=== PATIENT | female | born 1940 | race Caucasian/White ===

== ENCOUNTER 2018-11-05 10:48 | Emergency (ER) | payer OTHER ==
[2018-11-05 11:00] VITALS: TEMP 97.7; BMI 33.0
--- NOTE | 2018-11-05 12:19 | PDOC ---
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 Patient was in bed when the son-in-law heard a Yon and went to her room. He stated within seconds she started to have generalized tremors of the upper extremities without vomiting which lasted approximately 30 seconds. He stated he called 911 immediately and patient at that time was in a deep "snore. " By the time EMS arrived patient was alert but groggy. Patient is currently asymptomatic and denies change in medications, recent illness, fever, chills chest pain difficulty breathing or urinary complaints. Timing/Duration: resolved prior to arrival Severity: moderate Associated Symptoms: reports: seizure Past History - Travel Traveled outside of the country in the last 30 days: No Close contact w/someone who was outside of country & ill: No - Past Medical History Allergies/Adverse Reactions: Allergies Allergy/AdvReac Type Severity Reaction Status Date / Time No Known Allergies Allergy Verified 11/05/18 10:59 Home Medications: Ambulatory Orders Aspirin 81 mg PO DAILY 11/05/18 Calcium Carbonate [Calcium] 500 mg PO DAILY 11/05/18 Cholecalciferol (Vitamin D3) [Vitamin D3 -] 5,000 unit PO DAILY 11/05/18 Hydrocodone/Acetaminophen [Hydrocodon-Acetaminoph 7.5-325] 1 each PO QID PRN Levothyroxine [Synthroid -] 125 mcg PO DAILY 11/05/18 Metoprolol Succinate [Toprol Xl] 25 mg PO DAILY 11/05/18 Phenobarbital 32.4 mg PO DAILY 11/05/18 Phenobarbital 64.8 mg PO HS 11/05/18 Phenytoin Na Extended [Dilantin -] 100 mg PO DAILY 11/05/18 Phenytoin Na Extended [Dilantin -] 200 mg PO HS 11/05/18 COPD: No HTN: Yes Seizures: Yes Thyroid Disease: Yes - Suicide/Smoking/Psychosocial Hx Smoking History: Unknown if ever smoked Patient Lives Alone: No Lives with/in: daughter Review of Systems - Review of Systems Able to Perform ROS?: No Is the patient limited Maltese proficient: No Constitutional: No: Symptoms Reported HEENTM: No: Symptoms Reported Respiratory: No: Symptoms reported Cardiac (ROS): No: Symptoms Reported ABD/GI: No: Symptoms Reported : No: Symptoms Reported Musculoskeletal: No: Symptoms Reported Integumentary: No: Symptoms Reported Neurological: Yes: Seizure. No: Headache, Weakness, Dizziness *Physical Exam - Vital Signs Last Vital Signs Temp Pulse Resp BP Pulse Ox 97.7 F 106 H 22 H 167/74 96 11/05/18 10:59 11/05/18 10:59 11/05/18 10:59 11/05/18 10:59 11/05/18 10:59 - Physical Exam General Appearance: Yes: Nourished, Appropriately Dressed. No: Apparent Distress HEENT: positive: EOMI, MARY, TMs Normal, Pharynx Normal. negative: Pale Conjunctivae Neck: positive: Normal Thyroid, Supple. negative: Decreased range of motion Respiratory/Chest: positive: Lungs Clear, Normal Breath Sounds. negative: Respiratory Distress, Accessory Muscle Use Cardiovascular: positive: Regular Rhythm, Tachycardia (102). negative: Murmur Gastrointestinal/Abdominal: positive: Soft. negative: Tenderness Extremity: positive: Normal Capillary Refill. negative: Pedal Edema Integumentary: positive: Normal Color, Warm, Moist Neurologic: positive: Normal Mood/Affect, Motor Strength 5/5 (ambulatory) Moderate Sedation - Procedure Monitoring Vital Signs: Procedure Monitoring Vital Signs Temperature 97.7 F 11/05/18 10:59 Pulse Rate 106 H 11/05/18 10:59 Respiratory Rate 22 H 11/05/18 10:59 Blood Pressure 167/74 11/05/18 10:59 O2 Sat by Pulse Oximetry (%) 96 11/05/18 10:59 Heart Score/ECG Review - ECG Intrepretation Rhythm: Regular Rhythm (rate 102 . Sinus tachycardia no ST elevation. Intervals are reg.) ED Treatment Course - LABORATORY CBC & Chemistry Diagram: 11/05/18 12:24 11/05/18 12:24 Medical Decision Making - Medical Decision Making 11/05/18 12:35 CC: Pt s/p sz x 30 sec. Last sz 1 yr ago w/ sim presentation. Pt currently asymptomatic Exam: slightly tachycardic, otherwise no abnormalities noted on exam Plan: labs, urine, tsh, and dilantin level, ekg 11/05/18 13:58 Laboratory Tests 11/05/18 11/05/18 11/05/18 12:24 12:24 12:24 WBC 8.8 Hgb 14.3 Hct 41.6 MPV 6.7 L Neutrophils % 72.6 Sodium 138 Potassium 4.3 Chloride 104 Carbon Dioxide 29 Anion Gap 4 L BUN 15 Creatinine 0.7 Random Glucose 91 Calcium 8.9 Total Bilirubin 0.2 AST 21 ALT 18 Alkaline Phosphatase 104 Total Protein 7.2 Urine Nitrite Ur Leukocyte Esterase Urine WBC (Auto) Urine RBC (Auto) Phenytoin 7.0 L 11/05/18 12:40 WBC Hgb Hct MPV Neutrophils % Sodium Potassium Chloride Carbon Dioxide Anion Gap BUN Creatinine Random Glucose Calcium Total Bilirubin AST ALT Alkaline Phosphatase Total Protein Urine Nitrite Positive Ur Leukocyte Esterase Negative Urine WBC (Auto) 3 Urine RBC (Auto) <1 Phenytoin U cx sent. discharge w/ macrobid. Call placed to dr reyna to discuss low dilantin level 11/05/18 14:[address] Reyna and states patient's last Dilantin was 20 and feels dosing is an adequate. He recommends 300 mg since patient took 100 mg this morning. Patient is aware she is supposed to be taking 100 mg the morning and 2 tablets at night. Patient also will be discharged home with Macrobid 11/05/18 14:16 *DC/Admit/Observation/Transfer Diagnosis at time of Disposition: Seizure - Discharge Dispostion Disposition: HOME Condition at time of disposition: Improved - Referrals Referrals: Zayra Noriega MD [Primary Care Provider] - - Patient Instructions Printed Discharge Instructions: DI for Seizure Disorder -- Adult Additional Instructions: Please take Dilantin 100mg in the morning and 200mg at night. Please Macrobid as prescribed for UTI. - Post Discharge Activity
[2018-11-05 12:45] LABS: BASO % 0.9 % (0-2.0); HEMATOCRIT 41.6 % (32.4-45.2); HEMOGLOBIN 14.3 GM/dL (10.7-15.3); MCH 31.7 pg (25.7-33.7); MCHC 34.3 g/dl (32.0-36.0); MEAN CELL VOLUME 92.5 fl (80-96); MEAN PLT VOLUME 6.7 fl (7.5-11.1); MONO % 9.5 % (3.8-10.2); NEUT % 72.6 % (42.8-82.8); PLATELET COUNT 344 K/MM3 (134-434); RDW 13.8 % (11.6-15.6); WHITE BLOOD COUNT 8.8 K/mm3 (4.0-10.0)
[2018-11-05 12:49] LABS: URINE APPEARANCE CLOUDY; URINE BILIRUBIN NEGATIVE (<2.0 mg/dL); URINE COLOR YELLOW; URINE GLUCOSE (UA) NEGATIVE (NEGATIVE); URINE KETONE NEGATIVE (NEGATIVE); URINE LEUK ESTERASE NEGATIVE (NEGATIVE); URINE NITRITE POSITIVE (NEGATIVE); URINE PROTEIN NEGATIVE (NEGATIVE); URINE UROBILINOGEN NEGATIVE mg/dL (0.2-1.0)
[2018-11-05 13:14] LABS: EPI CELLS MANY /HPF (FEW); URINE BACTERIA RARE /hpf (NONE SEEN); URINE MUCUS RARE
[2018-11-05 13:29] LABS: ALBUMIN 2.8 g/dl (3.4-5.0); ALK PHOS 104 U/L (45-117); ANION GAP 4 MMOL/L (8-16); BILIRUBIN,TOTAL 0.2 mg/dL (0.2-1); BLOOD UREA NITROGEN 15 mg/dL (7-18); CALCIUM 8.9 mg/dL (8.5-10.1); CHLORIDE 104 mmol/L (98-107); CO2 29 mmol/L (21-32); CREATININE 0.7 mg/dL (0.55-1.3); GLUCOSE,RANDOM 91 mg/dL (74-106); POTASSIUM 4.3 mmol/L (3.5-5.1); SGOT/AST 21 U/L (15-37); SGPT/ALT 18 U/L (13-61); SODIUM 138 mmol/L (136-145); TOT PROT 7.2 g/dl (6.4-8.2)
[2018-11-05 14:00] VITALS: BP 142/80; PULSE 94
[2018-11-05] MEDS ORDERED: NITROFURANTOIN MACROCRYSTAL 50 MG CAPSULE (FP) PO SCH (14:00)
[2018-11-05] MEDS ORDERED: NITROFURANTOIN MACROCRYSTAL 50 MG CAPSULE (FP) ONE (14:02)
[2018-11-05] MEDS ORDERED: PHENYTOIN NA EXTENDED 100 MG CAPSULE (FP) PO ONE (14:15)
[2018-11-05] MEDS ORDERED: PHENYTOIN NA EXTENDED 100 MG CAPSULE (FP) ONE (14:38)
--- NOTE | 2018-11-05 22:46 | EKG ---
Test Reason : Blood Pressure : / mmHG Vent. Rate : 102 BPM Atrial Rate : 102 BPM P-R Int : 148 ms QRS Dur : 084 ms QT Int : 338 ms P-R-T Axes : 048 029 072 degrees QTc Int : 440 ms SINUS TACHYCARDIA OTHERWISE NORMAL ECG NO PREVIOUS ECGS AVAILABLE Confirmed by CANDACE CHAPARRO MD ([id number]) on 11/05/2018 10:46:12 PM Referred By: Confirmed By:CANDACE CHAPARRO MD
== END 2018-11-05 14:49 | disposition home or self-care (01) ==
LOC: JER 10:48
DX: G40.909 Epilepsy, unspecified, not intractable, without status epilepticus (principal); I10 Essential (primary) hypertension; E07.89 Other specified disorders of thyroid
CPT/HCPCS: 36415; 80053; 80185; 81003; 81015; 84443; 85025; 87086; 93005; 93010; 99283-25

== ENCOUNTER 2020-12-08 12:11 | Emergency (ER) | payer OTHER ==
[2020-12-08 12:51] VITALS: BMI 36.8
[2020-12-08 14:16] LABS: BASO % 0.9 % (0-2.0); EOS % 0.9 % (0-4.5); HEMOGLOBIN 13.8 GM/dL (10.7-15.3); LYMPH % 15.6 % (8-40); MCH 31.1 pg (25.7-33.7); MCHC 33.6 g/dl (32.0-36.0); MEAN CELL VOLUME 92.5 fl (80-96); MEAN PLT VOLUME 6.8 fl (7.5-11.1); MONO % 9.2 % (3.8-10.2); NEUT % 73.4 % (42.8-82.8); PLATELET COUNT 345 K/MM3 (134-434); RBC 4.44 M/mm3 (3.60-5.2); RDW 13.5 % (11.6-15.6); WHITE BLOOD COUNT 9.2 K/mm3 (4.0-10.0)
[2020-12-08 14:38] LABS: ALBUMIN 2.6 g/dl (3.4-5.0); CALCIUM 8.7 mg/dL (8.5-10.1)
[2020-12-08 14:39] LABS: BLOOD UREA NITROGEN 16.3 mg/dL (7-18)
[2020-12-08 14:42] LABS: CREATININE 0.7 mg/dL (0.55-1.3)
[2020-12-08 14:44] LABS: BILIRUBIN,TOTAL 0.2 mg/dL (0.2-1); TOT PROT 6.8 g/dl (6.4-8.2)
[2020-12-08 17:45] LABS: EPI CELLS 26 /uL (0-25.1); HYALINE CASTS 3 /uL (0-3.1); PH,URINE 7.5 (5.0-8.0); URINE APPEARANCE TURBID; URINE BACTERIA >9,000 /uL (0-1359); URINE BILIRUBIN NEGATIVE (NEGATIVE); URINE COLOR YELLOW; URINE GLUCOSE (UA) NEGATIVE (NEGATIVE); URINE KETONE NEGATIVE (NEGATIVE); URINE LEUK ESTERASE 2+ (NEGATIVE); URINE NITRITE POSITIVE (NEGATIVE); URINE PROTEIN 1+ (NEGATIVE); URINE UROBILINOGEN 0.2 mg/dL (0.2-1.0); URINE WBC 350 /uL (0-25.8)
[2020-12-08] MEDS ORDERED: CEFTRIAXONE 1 GM in DEXTROSE 5%-WATER - 100 ML IVPB ONE (17:52)
[2020-12-08] MEDS ORDERED: CEFAZOLIN 1 GM/D5W 1 GM/50 ML BAG ONE (18:29)
[2020-12-08] MEDS ORDERED: CEFTRIAXONE 1 GM/50 ML BAG ONE (18:37)
[2020-12-08 19:03] LABS: URINE RBC 192.4 /uL (0-23.9)
[2020-12-08 19:08] VITALS: BP 140/62; PULSE 69; TEMP 98.1
== END 2020-12-08 19:22 | disposition home or self-care (01) ==
LOC: JER 12:11
DX: R56.9 Unspecified convulsions (principal)
CPT/HCPCS: 36415; 71046-TC-FY; 80053; 81003; 85025; 87086; 87186; 93005; 93010; 99284-25

== ENCOUNTER 2021-10-28 19:41 | Emergency (ER) | payer OTHER ==
[2021-10-28 20:18] VITALS: BMI 36.5
[2021-10-28 21:35] LABS: BASO % 0.8 % (0-2.0); EOS % 1.1 % (0-4.5); HEMATOCRIT 40.8 % (32.4-45.2); HEMOGLOBIN 13.5 GM/dL (10.7-15.3); LYMPH % 20.5 % (8-40); MCH 30.6 pg (25.7-33.7); MEAN CELL VOLUME 92.6 fl (80-96); MONO % 10.2 % (3.8-10.2); NEUT % 67.4 % (42.8-82.8); PLATELET COUNT 343 10^3/uL (134-434); RBC 4.41 M/mm3 (3.60-5.2); RDW 13.5 % (11.6-15.6); WHITE BLOOD COUNT 8.9 K/mm3 (4.0-10.0)
[2021-10-28 21:59] LABS: ALBUMIN 2.7 g/dl (3.4-5.0); BLOOD UREA NITROGEN 15.6 mg/dL (7-18)
[2021-10-28 22:02] LABS: CREATININE 0.7 mg/dL (0.55-1.3)
[2021-10-28 22:03] LABS: BILIRUBIN,TOTAL 0.6 mg/dL (0.2-1); TOT PROT 6.6 g/dl (6.4-8.2)
[2021-10-28 22:34] LABS: EPI CELLS 22 /uL (0-25.1); HYALINE CASTS 1 /uL (0-3.1); URINE APPEARANCE CLOUDY; URINE BACTERIA 8308 /uL (0-1359); URINE BILIRUBIN NEGATIVE (NEGATIVE); URINE COLOR YELLOW; URINE GLUCOSE (UA) NEGATIVE (NEGATIVE); URINE KETONE NEGATIVE (NEGATIVE); URINE LEUK ESTERASE 2+ (NEGATIVE); URINE NITRITE POSITIVE (NEGATIVE); URINE PROTEIN NEGATIVE (NEGATIVE); URINE RBC 26 /uL (0-23.9); URINE UROBILINOGEN 0.2 mg/dL (0.2-1.0); URINE WBC 60 /uL (0-25.8)
[2021-10-28 23:42] VITALS: BP 135/93; PULSE 89; TEMP 98.3
== END 2021-10-28 23:42 | disposition home or self-care (01) ==
LOC: JER 19:41
DX: N39.0 Urinary tract infection, site not specified (principal); G40.89 Other seizures
CPT/HCPCS: 36415; 71045-TC-FY; 80053; 80184; 80185; 81003; 83735; 85025; 87086; 87186; 93005; 93010; 99285-25

== ENCOUNTER 2022-04-15 16:02 | Emergency (ER) | payer OTHER ==
[2022-04-15 16:18] VITALS: BP 154/71; PULSE 81; RESP 20; TEMP 98.2; BMI 35.3
[2022-04-15] MEDS ORDERED: CEPHALEXIN MONOHYDRATE 500 MG CAPSULE (UD) PO ONE (16:34)
[2022-04-15] MEDS ORDERED: PHENAZOPYRIDINE HCL 100 MG TABLET (FP) PO ONE (16:34)
[2022-04-15] MEDS ORDERED: CEPHALEXIN MONOHYDRATE 500 MG CAPSULE (UD) ONE (16:44)
[2022-04-15] MEDS ORDERED: PHENAZOPYRIDINE HCL 100 MG TABLET (FP) ONE (16:44)
[2022-04-15 16:58] LABS: EPITHELIAL CELLS FEW /hpf
== END 2022-04-15 17:26 | disposition home or self-care (01) ==
LOC: FER 16:02
DX: N39.0 Urinary tract infection, site not specified (principal)
CPT/HCPCS: 81003; 81015; 87086; 87186; 99283-25

== ENCOUNTER 2022-07-01 12:10 | Inpatient (IN) | payer OTHER ==
[2022-07-01 12:46] VITALS: BMI 34.9
[2022-07-01 13:45] LABS: ALBUMIN 3.1 g/dl (3.4-5.0); BILIRUBIN,TOTAL 0.6 mg/dl (0.2-1); CALCIUM 8.6 mg/dl (8.5-10); CREATININE 0.8 mg/dl (0.55-1.3); TOT PROT 6.8 g/dl (6.4-8.2)
[2022-07-01 13:47] LABS: HEMATOCRIT 44.7 % (32.4-45.2); HEMOGLOBIN 14.8 G/dL (10.7-15.3); MCH 31.1 pg (25.7-33.7); MEAN CELL VOLUME 94.2 fl (80-96); PLATELET COUNT 314.7 10^3/uL (134-434); RBC 4.75 10^6/uL (3.60-5.2); WHITE BLOOD COUNT 7.8 10^3/uL (4.0-10.8)
[2022-07-01 14:07] LABS: PLATELET ESTIMATE ADEQUATE
[2022-07-01 14:53] LABS: EPITHELIAL CELLS FEW /hpf
[2022-07-01] MEDS ORDERED: CEFTRIAXONE 1,000 MG in DEXTROSE 5%-WATER - 50 ML IVPB ONE (15:33)
[2022-07-01] MEDS ORDERED: cefTRIAXone SODIUM 1 GM VIAL ONE (15:39)
[2022-07-01] MEDS ORDERED: ACETAMINOPHEN 325 MG TABLET (FP) PO PRN (17:44)
[2022-07-01] MEDS ORDERED: PHENobarbital 30 MG TABLET PO SCH (22:00)
[2022-07-01] MEDS: HEPARIN NA (PORCINE) 5,000 UNITS/ML 1ML VIAL SQ SCH (22:28)
[2022-07-02] MEDS ORDERED: LORazepam 2 MG/ML SDV VIAL IVPUSH PRN (00:14)
[2022-07-02] MEDS ORDERED: LORATADINE 10 MG TABLET PO PRN (00:17)
[2022-07-02] MEDS: LEVOTHYROXINE NA 125 MCG TABLET (FP) PO SCH (06:27)
[2022-07-02 08:33] LABS: ALBUMIN 2.7 g/dl (3.4-5.0); BILIRUBIN,TOTAL 0.5 mg/dl (0.2-1); CALCIUM 7.9 mg/dl (8.5-10); CREATININE 0.6 mg/dl (0.55-1.3); TOT PROT 5.8 g/dl (6.4-8.2)
[2022-07-02 09:38] LABS: HEMATOCRIT 40.3 % (32.4-45.2); MCH 30.4 pg (25.7-33.7); MCHC 32.2 g/dl (32.0-36.0); MEAN CELL VOLUME 94.3 fl (80-96); MEAN PLT VOLUME 7.5 fl (7.5-11.1); PLATELET COUNT 332 10^3/uL (134-434); RBC 4.27 M/mm3 (3.60-5.2); RDW 13.9 % (11.6-15.6); WHITE BLOOD COUNT 6.7 K/mm3 (4.0-10.0)
[2022-07-02] MEDS ORDERED: CRANBERRY 400 MG PO SCH (10:00)
[2022-07-02] MEDS ORDERED: PHENobarbital 30 MG TABLET PO SCH (10:00)
[2022-07-02] MEDS: CHOLECALCIFEROL (VIT D3) 1,000 UNIT (25 MCG) TABLET PO SCH (10:48)
[2022-07-02] MEDS: PHENobarbital 15 MG TABLET PO SCH ×2 (10:48→21:10)
[2022-07-02] MEDS: ASPIRIN 81 MG CHEWABLE TABLETS PO SCH (10:48)
[2022-07-02] MEDS: CEFTRIAXONE 1 GM in DEXTROSE 5%-WATER - 50 ML IVPB SCH (10:49)
[2022-07-02] MEDS: HEPARIN NA (PORCINE) 5,000 UNITS/ML 1ML VIAL SQ SCH ×2 (10:50→21:10)
[2022-07-02] MEDS: CYANOCOBALAMIN 1,000 MCG TABLET (FP) PO SCH (10:50)
[2022-07-02 12:08] LABS: ANISOCYTOSIS 0; HELMET CELLS 0; HOWELL-JOLLY BODIES 0; MACROCYTOSIS 0; OVALOCYTE 0; ROULEAU 0; SICKELED CELLS 0; TARGET CELLS 0; TEAR DROP CELLS 0; TOXIC GRANULATION 0
[2022-07-03] MEDS ORDERED: SODIUM CHLORIDE 1,000 ML IV SCH (07:15)
[2022-07-03] MEDS: LEVOTHYROXINE NA 125 MCG TABLET (FP) PO SCH (07:27)
[2022-07-03] MEDS: CEFTRIAXONE 1 GM in DEXTROSE 5%-WATER - 50 ML IVPB SCH (09:46)
[2022-07-03] MEDS: CYANOCOBALAMIN 1,000 MCG TABLET (FP) PO SCH (09:48)
[2022-07-03] MEDS: ASPIRIN 81 MG CHEWABLE TABLETS PO SCH (09:48)
[2022-07-03] MEDS: CHOLECALCIFEROL (VIT D3) 1,000 UNIT (25 MCG) TABLET PO SCH (09:48)
[2022-07-03] MEDS: PHENobarbital 15 MG TABLET PO SCH ×2 (09:48→21:28)
[2022-07-03] MEDS: PHENYTOIN NA EXTENDED 100 MG CAPSULE (FP) PO SCH (09:48)
[2022-07-03] MEDS: HEPARIN NA (PORCINE) 5,000 UNITS/ML 1ML VIAL SQ SCH ×2 (09:54→21:28)
[2022-07-03 16:56] LABS: HEMOGLOBIN 13.7 G/dL (10.7-15.3); MCH 31.7 pg (25.7-33.7); MCHC 33.4 g/dl (32.0-36.0); MEAN PLT VOLUME 7.5 fl (7.5-11.1); PLATELET COUNT 307.6 10^3/uL (134-434); RBC 4.32 10^6/uL (3.60-5.2); WHITE BLOOD COUNT 8.1 10^3/uL (4.0-10.8)
[2022-07-03 17:17] LABS: CALCIUM 8.2 mg/dl (8.5-10); CREATININE 0.7 mg/dl (0.55-1.3); MAGNESIUM 1.9 mg/dL (1.8-2.4); PHOSPHOROUS 3.5 mg/dl (2.5-4.9)
[2022-07-04] MEDS: LEVOTHYROXINE NA 125 MCG TABLET (FP) PO SCH (06:13)
[2022-07-04 08:20] LABS: CREATININE 0.7 mg/dl (0.55-1.3)
[2022-07-04 08:21] LABS: HEMOGLOBIN 13.2 G/dL (10.7-15.3); MCH 30.8 pg (25.7-33.7); MEAN CELL VOLUME 93.5 fl (80-96); MEAN PLT VOLUME 7.2 fl (7.5-11.1); PLATELET COUNT 300.1 10^3/uL (134-434); RBC 4.28 10^6/uL (3.60-5.2); RDW 13.7 % (11.6-15.6); WHITE BLOOD COUNT 7.8 10^3/uL (4.0-10.8)
[2022-07-04 10:16] VITALS: BP 102/52; PULSE 83; RESP 16; TEMP 97.7
[2022-07-04] MEDS: CEFTRIAXONE 1 GM in DEXTROSE 5%-WATER - 50 ML IVPB SCH (10:17)
[2022-07-04] MEDS: ASPIRIN 81 MG CHEWABLE TABLETS PO SCH (10:18)
[2022-07-04] MEDS: CHOLECALCIFEROL (VIT D3) 1,000 UNIT (25 MCG) TABLET PO SCH (10:18)
[2022-07-04] MEDS: PHENYTOIN NA EXTENDED 100 MG CAPSULE (FP) PO SCH (10:18)
[2022-07-04] MEDS: PHENobarbital 15 MG TABLET PO SCH (10:18)
[2022-07-04] MEDS: CYANOCOBALAMIN 1,000 MCG TABLET (FP) PO SCH (10:18)
[2022-07-04] MEDS: HEPARIN NA (PORCINE) 5,000 UNITS/ML 1ML VIAL SQ SCH (10:18)
== END 2022-07-04 13:36 | disposition home or self-care (01) | DRG 554 ==
LOC: FER 12:10 → FM/S 17:56
PROVIDERS: ADMIT Internal Medicine; ATTEND Internal Medicine
DX: M17.0 Bilateral primary osteoarthritis of knee (principal); I95.1 Orthostatic hypotension; R53.1 Weakness; R29.6 Repeated falls; E03.9 Hypothyroidism, unspecified; G40.909 Epilepsy, unspecified, not intractable, without status epilepticus; I10 Essential (primary) hypertension; E78.5 Hyperlipidemia, unspecified; M19.90 Unspecified osteoarthritis, unspecified site; R06.02 Shortness of breath; R05.9 Cough, unspecified; R07.9 Chest pain, unspecified
CPT/HCPCS: 0241U-QW; 36415; 70450-TC; 70551-TC; 71045-TC-FY; 72125-TC; 72141-TC; 72170-TC-FY; 80048; 80053; 80185; 81003; 81015; 82525; 82607; 83735; 84100; 84443; 84484; 84630; 85025; 85027; 86780; 87086; 93005; 97116-GP; 97161-GP; 99285-25; J1644

== ENCOUNTER 2022-07-15 11:44 | Observation (INO) | payer OTHER ==
[2022-07-15 12:02] VITALS: BMI 26.9
[2022-07-15 20:01] LABS: BASO % 1.1 % (0-2.0); EOS % 1.9 % (0-4.5); HEMATOCRIT 41.4 % (32.4-45.2); HEMOGLOBIN 13.4 GM/dL (10.7-15.3); MCH 30.3 pg (25.7-33.7); MCHC 32.3 g/dl (32.0-36.0); MEAN CELL VOLUME 93.8 fl (80-96); MEAN PLT VOLUME 7.4 fl (7.5-11.1); MONO % 10.6 % (3.8-10.2); NEUT % 46.4 % (42.8-82.8); PLATELET COUNT 367 10^3/uL (134-434); RBC 4.41 M/mm3 (3.60-5.2); RDW 14.5 % (11.6-15.6); WHITE BLOOD COUNT 8.2 K/mm3 (4.0-10.0)
[2022-07-15 20:26] LABS: ALBUMIN 2.7 g/dl (3.4-5.0); BLOOD UREA NITROGEN 18.1 mg/dL (7-18); CALCIUM 8.4 mg/dL (8.5-10.1)
[2022-07-15 20:29] LABS: CREATININE 0.9 mg/dL (0.55-1.3)
[2022-07-15 20:31] LABS: BILIRUBIN,TOTAL 0.2 mg/dL (0.2-1); TOT PROT 6.6 g/dl (6.4-8.2)
[2022-07-15] MEDS ORDERED: PHENobarbital 30 MG TABLET PO SCH (22:00)
[2022-07-15] MEDS ORDERED: PATIENT'S OWN MEDICATION (NON-FORMULARY) (Phenobarbital [Phenobarbital] 64.8 MG Tablet) PO SCH (22:00)
[2022-07-16] MEDS ORDERED: LEVOTHYROXINE NA 50 MCG TABLET (FP) ONE ×2 (05:58→06:28)
[2022-07-16] MEDS ORDERED: PHENobarbital 30 MG TABLET ONE (06:28)
[2022-07-16] MEDS ORDERED: LEVOTHYROXINE NA 25 MCG TABLET (FP) ONE (06:28)
[2022-07-16] MEDS: PHENobarbital 30 MG TABLET PO SCH ×2 (06:29→21:47)
[2022-07-16] MEDS: LEVOTHYROXINE NA 125 MCG TABLET (FP) PO SCH (06:29)
[2022-07-16] MEDS ORDERED: PHENobarbital 30 MG TABLET PO SCH (07:00)
[2022-07-16 07:21] LABS: BLOOD UREA NITROGEN 22.4 mg/dL (7-18)
[2022-07-16 07:24] LABS: CREATININE 0.8 mg/dL (0.55-1.3); PHOSPHOROUS 3.5 mg/dL (2.5-4.9)
[2022-07-16 08:09] LABS: INR 1.09 (0.83-1.09); PROTHROMBIN TIME (PATIENT) 12.6 SEC (9.7-13.0)
[2022-07-16] MEDS: PHENYTOIN NA EXTENDED 100 MG CAPSULE (FP) PO SCH (11:01)
[2022-07-17] MEDS: LEVOTHYROXINE NA 125 MCG TABLET (FP) PO SCH (06:17)
[2022-07-17] MEDS: PHENobarbital 30 MG TABLET PO SCH ×2 (06:18→22:22)
[2022-07-17] MEDS: PHENYTOIN NA EXTENDED 100 MG CAPSULE (FP) PO SCH (09:56)
[2022-07-17 13:50] LABS: BASO % 0.6 % (0-2.0); EOS % 2.5 % (0-4.5); HEMATOCRIT 40.7 % (32.4-45.2); LYMPH % 33.6 % (8-40); MCH 29.9 pg (25.7-33.7); MCHC 31.9 g/dl (32.0-36.0); MEAN CELL VOLUME 93.7 fl (80-96); MEAN PLT VOLUME 7.2 fl (7.5-11.1); MONO % 9.4 % (3.8-10.2); NEUT % 53.9 % (42.8-82.8); PLATELET COUNT 357 10^3/uL (134-434); RBC 4.34 M/mm3 (3.60-5.2); RDW 13.9 % (11.6-15.6); WHITE BLOOD COUNT 9.1 K/mm3 (4.0-10.0)
[2022-07-17 14:05] LABS: CALCIUM 8.6 mg/dL (8.5-10.1)
[2022-07-17 14:06] LABS: ALBUMIN 2.6 g/dl (3.4-5.0); BLOOD UREA NITROGEN 18.2 mg/dL (7-18)
[2022-07-17 14:09] LABS: CREATININE 0.7 mg/dL (0.55-1.3)
[2022-07-17 14:10] LABS: BILIRUBIN,TOTAL 0.3 mg/dL (0.2-1)
[2022-07-17 14:11] LABS: TOT PROT 6.3 g/dl (6.4-8.2)
[2022-07-18] MEDS: LEVOTHYROXINE NA 125 MCG TABLET (FP) PO SCH (06:03)
[2022-07-18] MEDS: PHENobarbital 30 MG TABLET PO SCH ×2 (06:03→22:14)
[2022-07-18] MEDS: PHENYTOIN NA EXTENDED 100 MG CAPSULE (FP) PO SCH (10:20)
[2022-07-18 12:22] LABS: BASO % 0.6 % (0-2.0); EOS % 2.1 % (0-4.5); HEMATOCRIT 41.1 % (32.4-45.2); HEMOGLOBIN 13.2 GM/dL (10.7-15.3); LYMPH % 33.4 % (8-40); MCH 30.1 pg (25.7-33.7); MCHC 32.2 g/dl (32.0-36.0); MEAN CELL VOLUME 93.6 fl (80-96); MEAN PLT VOLUME 7.2 fl (7.5-11.1); MONO % 10.3 % (3.8-10.2); NEUT % 53.6 % (42.8-82.8); PLATELET COUNT 365 10^3/uL (134-434); RBC 4.39 M/mm3 (3.60-5.2); RDW 14.3 % (11.6-15.6); WHITE BLOOD COUNT 8.8 K/mm3 (4.0-10.0)
[2022-07-18 12:49] LABS: BLOOD UREA NITROGEN 15.2 mg/dL (7-18); CALCIUM 8.6 mg/dL (8.5-10.1)
[2022-07-18 12:52] LABS: CREATININE 0.6 mg/dL (0.55-1.3)
[2022-07-18 14:07] LABS: EPI CELLS 9 /uL (0-25.1); HYALINE CASTS 2 /uL (0-3.1); URINE APPEARANCE CLOUDY; URINE BACTERIA 2395 /uL (0-1359); URINE BILIRUBIN NEGATIVE (NEGATIVE); URINE COLOR YELLOW; URINE GLUCOSE (UA) NEGATIVE (NEGATIVE); URINE KETONE NEGATIVE (NEGATIVE); URINE LEUK ESTERASE 3+ (NEGATIVE); URINE NITRITE POSITIVE (NEGATIVE); URINE PROTEIN NEGATIVE (NEGATIVE); URINE RBC 29 /uL (0-23.9); URINE UROBILINOGEN 0.2 mg/dL (0.2-1.0); URINE WBC 283 /uL (0-25.8)
[2022-07-19] MEDS: PHENobarbital 30 MG TABLET PO SCH (06:46)
[2022-07-19] MEDS: LEVOTHYROXINE NA 125 MCG TABLET (FP) PO SCH (06:46)
[2022-07-19 10:39] LABS: BASO % 0.9 % (0-2.0); EOS % 2.5 % (0-4.5); HEMATOCRIT 40.5 % (32.4-45.2); HEMOGLOBIN 13.1 GM/dL (10.7-15.3); LYMPH % 34.9 % (8-40); MCH 30.2 pg (25.7-33.7); MCHC 32.2 g/dl (32.0-36.0); MEAN CELL VOLUME 93.7 fl (80-96); MEAN PLT VOLUME 7.5 fl (7.5-11.1); MONO % 10.5 % (3.8-10.2); NEUT % 51.2 % (42.8-82.8); PLATELET COUNT 358 10^3/uL (134-434); RBC 4.32 M/mm3 (3.60-5.2); RDW 14.2 % (11.6-15.6); WHITE BLOOD COUNT 8.6 K/mm3 (4.0-10.0)
[2022-07-19 11:06] LABS: BLOOD UREA NITROGEN 17.3 mg/dL (7-18); CALCIUM 8.1 mg/dL (8.5-10.1)
[2022-07-19 11:10] LABS: CREATININE 0.6 mg/dL (0.55-1.3)
[2022-07-19] MEDS ORDERED: PHENYTOIN NA EXTENDED 100 MG CAPSULE (FP) PO ONE (22:00)
[2022-07-19] MEDS ORDERED: PHENobarbital 30 MG TABLET PO ONE (22:00)
[2022-07-20 00:46] VITALS: RESP 18
[2022-07-20] MEDS: LEVOTHYROXINE NA 125 MCG TABLET (FP) PO SCH (06:29)
[2022-07-20] MEDS: FOLIC ACID 1 MG TABLET (FP) PO SCH (10:09)
[2022-07-20] MEDS: CYANOCOBALAMIN (VITAMIN B-12) 100 MCG TABLET PO SCH (10:10)
[2022-07-20 10:38] LABS: BASO % 1.1 % (0-2.0); HEMATOCRIT 40.3 % (32.4-45.2); HEMOGLOBIN 13.2 GM/dL (10.7-15.3); LYMPH % 40.1 % (8-40); MCH 30.5 pg (25.7-33.7); MCHC 32.7 g/dl (32.0-36.0); MEAN CELL VOLUME 93.3 fl (80-96); MEAN PLT VOLUME 7.3 fl (7.5-11.1); NEUT % 45.8 % (42.8-82.8); PLATELET COUNT 385 10^3/uL (134-434); RBC 4.32 M/mm3 (3.60-5.2); RDW 14.2 % (11.6-15.6); WHITE BLOOD COUNT 8.7 K/mm3 (4.0-10.0)
[2022-07-20 11:01] LABS: CALCIUM 8.5 mg/dL (8.5-10.1)
[2022-07-20 11:02] LABS: BLOOD UREA NITROGEN 13.9 mg/dL (7-18)
[2022-07-20 11:05] LABS: CREATININE 0.7 mg/dL (0.55-1.3)
[2022-07-20] MEDS: PHENobarbital 30 MG TABLET PO SCH (21:44)
[2022-07-20] MEDS: PHENYTOIN NA EXTENDED 100 MG CAPSULE (FP) PO SCH (21:45)
[2022-07-20] MEDS ORDERED: PHENobarbital 30 MG TABLET PO SCH ×2 (22:00)
[2022-07-21] MEDS: LEVOTHYROXINE NA 125 MCG TABLET (FP) PO SCH (06:12)
[2022-07-21 09:55] LABS: BASO % 0.9 % (0-2.0); EOS % 3.1 % (0-4.5); HEMATOCRIT 39.6 % (32.4-45.2); HEMOGLOBIN 13.2 GM/dL (10.7-15.3); LYMPH % 39.4 % (8-40); MCH 31.2 pg (25.7-33.7); MCHC 33.3 g/dl (32.0-36.0); MEAN CELL VOLUME 93.9 fl (80-96); MEAN PLT VOLUME 7.1 fl (7.5-11.1); MONO % 9.9 % (3.8-10.2); NEUT % 46.7 % (42.8-82.8); PLATELET COUNT 369 10^3/uL (134-434); RBC 4.22 M/mm3 (3.60-5.2); RDW 14.5 % (11.6-15.6); WHITE BLOOD COUNT 8.2 K/mm3 (4.0-10.0)
[2022-07-21] MEDS: FOLIC ACID 1 MG TABLET (FP) PO SCH (09:57)
[2022-07-21] MEDS: CYANOCOBALAMIN (VITAMIN B-12) 100 MCG TABLET PO SCH (09:57)
[2022-07-21 10:16] LABS: BLOOD UREA NITROGEN 14.7 mg/dL (7-18); CALCIUM 8.4 mg/dL (8.5-10.1)
[2022-07-21 10:19] LABS: CREATININE 0.7 mg/dL (0.55-1.3)
[2022-07-21] MEDS: PHENobarbital 30 MG TABLET PO SCH (22:21)
[2022-07-21] MEDS: PHENYTOIN NA EXTENDED 100 MG CAPSULE (FP) PO SCH (22:21)
[2022-07-22] MEDS: LEVOTHYROXINE NA 125 MCG TABLET (FP) PO SCH (06:36)
[2022-07-22] MEDS: FOLIC ACID 1 MG TABLET (FP) PO SCH (10:52)
[2022-07-22] MEDS: CYANOCOBALAMIN (VITAMIN B-12) 100 MCG TABLET PO SCH (10:52)
[2022-07-22 11:43] LABS: BASO % 0.7 % (0-2.0); EOS % 3.6 % (0-4.5); HEMATOCRIT 38.7 % (32.4-45.2); HEMOGLOBIN 12.8 GM/dL (10.7-15.3); LYMPH % 36.1 % (8-40); MCH 30.9 pg (25.7-33.7); MEAN CELL VOLUME 93.6 fl (80-96); MONO % 11.1 % (3.8-10.2); NEUT % 48.5 % (42.8-82.8); PLATELET COUNT 367 10^3/uL (134-434); RBC 4.13 M/mm3 (3.60-5.2); RDW 14.2 % (11.6-15.6); WHITE BLOOD COUNT 7.4 K/mm3 (4.0-10.0)
[2022-07-22 12:26] LABS: CALCIUM 8.3 mg/dL (8.5-10.1)
[2022-07-22 12:27] LABS: BLOOD UREA NITROGEN 14.3 mg/dL (7-18)
[2022-07-22 12:30] LABS: CREATININE 0.7 mg/dL (0.55-1.3)
[2022-07-22] MEDS: PHENYTOIN NA EXTENDED 100 MG CAPSULE (FP) PO SCH (22:16)
[2022-07-22] MEDS: PHENobarbital 30 MG TABLET PO SCH (22:16)
[2022-07-23] MEDS: LEVOTHYROXINE NA 125 MCG TABLET (FP) PO SCH (06:06)
[2022-07-23] MEDS: FOLIC ACID 1 MG TABLET (FP) PO SCH (09:59)
[2022-07-23] MEDS: CYANOCOBALAMIN (VITAMIN B-12) 100 MCG TABLET PO SCH (09:59)
[2022-07-23 11:34] LABS: BASO % 0.6 % (0-2.0); CALCIUM 8.5 mg/dL (8.5-10.1); EOS % 2.9 % (0-4.5); HEMATOCRIT 40.2 % (32.4-45.2); HEMOGLOBIN 12.8 GM/dL (10.7-15.3); LYMPH % 34.3 % (8-40); MCH 29.9 pg (25.7-33.7); MCHC 31.8 g/dl (32.0-36.0); MEAN PLT VOLUME 7.4 fl (7.5-11.1); MONO % 10.1 % (3.8-10.2); NEUT % 52.1 % (42.8-82.8); PLATELET COUNT 381 10^3/uL (134-434); RBC 4.28 M/mm3 (3.60-5.2); RDW 14.6 % (11.6-15.6); WHITE BLOOD COUNT 7.3 K/mm3 (4.0-10.0)
[2022-07-23 11:35] LABS: BLOOD UREA NITROGEN 14.7 mg/dL (7-18)
[2022-07-23 11:38] LABS: CREATININE 0.7 mg/dL (0.55-1.3)
[2022-07-23] MEDS: PHENobarbital 30 MG TABLET PO SCH (21:19)
[2022-07-24] MEDS: LEVOTHYROXINE NA 125 MCG TABLET (FP) PO SCH (06:19)
[2022-07-24] MEDS: FOLIC ACID 1 MG TABLET (FP) PO SCH (09:33)
[2022-07-24] MEDS: CYANOCOBALAMIN (VITAMIN B-12) 100 MCG TABLET PO SCH (09:33)
[2022-07-24 10:56] LABS: BASO % 0.6 % (0-2.0); EOS % 2.9 % (0-4.5); HEMATOCRIT 40.5 % (32.4-45.2); HEMOGLOBIN 13.2 GM/dL (10.7-15.3); LYMPH % 39.1 % (8-40); MCH 30.5 pg (25.7-33.7); MCHC 32.7 g/dl (32.0-36.0); MEAN CELL VOLUME 93.4 fl (80-96); MEAN PLT VOLUME 7.2 fl (7.5-11.1); MONO % 9.3 % (3.8-10.2); NEUT % 48.1 % (42.8-82.8); PLATELET COUNT 417 10^3/uL (134-434); RBC 4.33 M/mm3 (3.60-5.2); RDW 14.2 % (11.6-15.6); WHITE BLOOD COUNT 7.3 K/mm3 (4.0-10.0)
[2022-07-24 11:14] LABS: CALCIUM 8.8 mg/dL (8.5-10.1)
[2022-07-24 11:15] LABS: BLOOD UREA NITROGEN 14.4 mg/dL (7-18)
[2022-07-24 11:18] LABS: CREATININE 0.6 mg/dL (0.55-1.3)
[2022-07-24] MEDS: PHENobarbital 30 MG TABLET PO SCH (21:22)
[2022-07-25] MEDS: LEVOTHYROXINE NA 125 MCG TABLET (FP) PO SCH (06:55)
[2022-07-25] MEDS: CYANOCOBALAMIN (VITAMIN B-12) 100 MCG TABLET PO SCH (10:32)
[2022-07-25] MEDS: FOLIC ACID 1 MG TABLET (FP) PO SCH (10:32)
[2022-07-25 15:28] VITALS: BP 132/63; PULSE 86; TEMP 97.9
[2022-07-25] MEDS ORDERED: PHENYTOIN NA EXTENDED 100 MG CAPSULE (FP) PO SCH (22:00)
== END 2022-07-25 17:35 ==
LOC: JER 11:44 → INTOOBSV 17:32 → JERBED 17:32 → UNDOADMOB 17:32 → JERBED 21:48 → J6S 07-16 07:00 → JERBED 07-16 07:00 → J6S 07-16 07:00
PROVIDERS: ADMIT Internal Medicine
DX: R51.9 Headache, unspecified (principal); S09.90XA Unspecified injury of head, initial encounter; G40.909 Epilepsy, unspecified, not intractable, without status epilepticus; R29.6 Repeated falls; I10 Essential (primary) hypertension; E78.5 Hyperlipidemia, unspecified; E03.9 Hypothyroidism, unspecified; K52.89 Other specified noninfective gastroenteritis and colitis; M19.90 Unspecified osteoarthritis, unspecified site; W18.39XA Other fall on same level, initial encounter; Y93.89 Activity, other specified; Y92.008 Other place in unspecified non-institutional (private) residence as the place of occurrence of the external cause; Z87.440 Personal history of urinary (tract) infections; E78.00 Pure hypercholesterolemia, unspecified; R55 Syncope and collapse; G93.89 Other specified disorders of brain
CPT/HCPCS: 0241U-QW; 36415; 70450-TC; 71045-TC-FY; 72125-TC; 80048; 80053; 80185; 81003; 82550; 82553; 82607; 82746; 83735; 84100; 84436; 84443; 85025; 85610; 87086; 93005; 93010; 97116-GP; 97162-GP; 99285-25; C9803-CS; G0378; U0003; U0005

== ENCOUNTER 2022-08-17 19:41 | Inpatient (IN) | payer OTHER ==
[2022-08-17 22:20] LABS: BASO % 0.3 % (0-2.0); EOS % 0.9 % (0-4.5); HEMATOCRIT 45.5 % (32.4-45.2); HEMOGLOBIN 14.4 GM/dL (10.7-15.3); LYMPH % 26.5 % (8-40); MCH 29.3 pg (25.7-33.7); MCHC 31.6 g/dl (32.0-36.0); MEAN CELL VOLUME 92.7 fl (80-96); MEAN PLT VOLUME 7.5 fl (7.5-11.1); NEUT % 59.3 % (42.8-82.8); PLATELET COUNT 352 10^3/uL (134-434); RBC 4.91 M/mm3 (3.60-5.2); RDW 14.1 % (11.6-15.6); WHITE BLOOD COUNT 6.4 K/mm3 (4.0-10.0)
[2022-08-17 22:26] LABS: INR 1.05 (0.83-1.09); PROTHROMBIN TIME (PATIENT) 12.1 SEC (9.7-13.0)
[2022-08-17 22:29] LABS: ACTIVATED PTT 24.6 SECONDS (25.2-36.5)
[2022-08-17 22:38] LABS: ALBUMIN 2.6 g/dl (3.4-5.0); CALCIUM 8.2 mg/dL (8.5-10.1)
[2022-08-17 22:39] LABS: BLOOD UREA NITROGEN 12.8 mg/dL (7-18)
[2022-08-17 22:42] LABS: CREATININE 0.6 mg/dL (0.55-1.3)
[2022-08-17 22:45] LABS: BILIRUBIN,TOTAL 0.5 mg/dL (0.2-1)
[2022-08-18] MEDS ORDERED: SODIUM CHLORIDE 0.9% 500 ML INFUS.BAG IV ONE (01:38)
[2022-08-18 04:25] LABS: EPI CELLS 7 /uL (0-25.1); HYALINE CASTS 5 /uL (0-3.1); PH,URINE 7.5 (5.0-8.0); URINE APPEARANCE CLOUDY; URINE BACTERIA 2667 /uL (0-1359); URINE BILIRUBIN NEGATIVE (NEGATIVE); URINE COLOR YELLOW; URINE GLUCOSE (UA) NEGATIVE (NEGATIVE); URINE KETONE TRACE (NEGATIVE); URINE LEUK ESTERASE 2+ (NEGATIVE); URINE NITRITE POSITIVE (NEGATIVE); URINE PROTEIN 1+ (NEGATIVE); URINE RBC 64 /uL (0-23.9); URINE UROBILINOGEN 0.2 mg/dL (0.2-1.0); URINE WBC 995 /uL (0-25.8)
[2022-08-18] MEDS ORDERED: CEFTRIAXONE 1,000 MG in DEXTROSE 5%-WATER - 50 ML IVPB ONE (04:37)
[2022-08-18] MEDS ORDERED: CEFTRIAXONE 1 GM/50 ML BAG ONE (05:14)
[2022-08-18] MEDS ORDERED: PIPERACILLIN/TAZOB 3.375 GM 3.375 GM in DEXTROSE 5%-WATER - 50 ML IVPB SCH (10:00)
[2022-08-18] MEDS ORDERED: CEFTRIAXONE 1,000 MG in DEXTROSE 5%-WATER - 50 ML IVPB SCH (10:00)
[2022-08-18] MEDS: SODIUM CHLORIDE 1,000 ML IV SCH (10:26)
[2022-08-18] MEDS: ENOXAPARIN NA (PORCINE) 40 MG/0.4 ML DISP.SYRIN SQ SCH (10:27)
[2022-08-18] MEDS ORDERED: ENOXAPARIN NA (PORCINE) 40 MG/0.4 ML DISP.SYRIN SQ ONE (10:28)
[2022-08-18] MEDS ORDERED: PHENobarbital 30 MG TABLET ONE (21:38)
[2022-08-18] MEDS ORDERED: PHENYTOIN NA EXTENDED 100 MG CAPSULE (FP) ONE (21:38)
[2022-08-18] MEDS: PHENYTOIN NA EXTENDED 100 MG CAPSULE (FP) PO SCH (22:03)
[2022-08-18] MEDS: PHENobarbital 30 MG TABLET PO SCH (22:03)
[2022-08-19 05:41] VITALS: BMI 32.7
[2022-08-19] MEDS: SODIUM CHLORIDE 1,000 ML IV SCH ×2 (06:00→17:43)
[2022-08-19] MEDS ORDERED: CEFTRIAXONE 1 GM in DEXTROSE 5%-WATER - 50 ML IVPB SCH (10:00)
[2022-08-19] MEDS: ENOXAPARIN NA (PORCINE) 40 MG/0.4 ML DISP.SYRIN SQ SCH (10:04)
[2022-08-19] MEDS: FOLIC ACID 1 MG TABLET (FP) PO SCH (10:04)
[2022-08-19] MEDS: ASPIRIN 81 MG CHEWABLE TABLETS PO SCH (10:05)
[2022-08-19] MEDS: CEFTRIAXONE 1 GM in DEXTROSE 5%-WATER - 50 ML IVPB SCH (10:05)
[2022-08-19] MEDS: CYANOCOBALAMIN (VITAMIN B-12) 100 MCG TABLET PO SCH (10:05)
[2022-08-19 10:34] LABS: BASO % 0.7 % (0-2.0); EOS % 1.9 % (0-4.5); HEMATOCRIT 41.9 % (32.4-45.2); HEMOGLOBIN 13.3 GM/dL (10.7-15.3); LYMPH % 29.6 % (8-40); MCH 29.5 pg (25.7-33.7); MCHC 31.7 g/dl (32.0-36.0); MEAN CELL VOLUME 93.1 fl (80-96); MEAN PLT VOLUME 7.4 fl (7.5-11.1); NEUT % 57.8 % (42.8-82.8); PLATELET COUNT 356 10^3/uL (134-434); RDW 13.9 % (11.6-15.6)
[2022-08-19 11:07] LABS: ALBUMIN 2.3 g/dl (3.4-5.0); BLOOD UREA NITROGEN 9.8 mg/dL (7-18); CALCIUM 7.9 mg/dL (8.5-10.1)
[2022-08-19 11:09] LABS: CREATININE 0.6 mg/dL (0.55-1.3); PHOSPHOROUS 2.3 mg/dL (2.5-4.9)
[2022-08-19 11:11] LABS: BILIRUBIN,TOTAL 0.4 mg/dL (0.2-1); TOT PROT 6.2 g/dl (6.4-8.2)
[2022-08-19] MEDS: LEVOTHYROXINE NA 125 MCG TABLET (FP) PO SCH (12:15)
[2022-08-19] MEDS: PHENYTOIN NA EXTENDED 100 MG CAPSULE (FP) PO SCH (21:57)
[2022-08-19] MEDS: PHENobarbital 30 MG TABLET PO SCH (21:58)
[2022-08-20 01:41] VITALS: RESP 18
[2022-08-20] MEDS: LEVOTHYROXINE NA 125 MCG TABLET (FP) PO SCH (06:34)
[2022-08-20] MEDS: CEFTRIAXONE 1 GM in DEXTROSE 5%-WATER - 50 ML IVPB SCH (10:28)
[2022-08-20] MEDS: ENOXAPARIN NA (PORCINE) 40 MG/0.4 ML DISP.SYRIN SQ SCH (10:31)
[2022-08-20] MEDS: ASPIRIN 81 MG CHEWABLE TABLETS PO SCH (10:31)
[2022-08-20] MEDS: CYANOCOBALAMIN (VITAMIN B-12) 100 MCG TABLET PO SCH (10:31)
[2022-08-20] MEDS: FOLIC ACID 1 MG TABLET (FP) PO SCH (10:31)
[2022-08-20] MEDS: LISINOPRIL 5 MG TABLET PO SCH (18:51)
[2022-08-20] MEDS: PHENYTOIN NA EXTENDED 100 MG CAPSULE (FP) PO SCH (21:09)
[2022-08-20] MEDS: PHENobarbital 30 MG TABLET PO SCH (21:10)
[2022-08-21] MEDS: LEVOTHYROXINE NA 125 MCG TABLET (FP) PO SCH (06:20)
[2022-08-21] MEDS: CEFTRIAXONE 1 GM in DEXTROSE 5%-WATER - 50 ML IVPB SCH (09:59)
[2022-08-21 10:01] LABS: EOS % 2.9 % (0-4.5); HEMATOCRIT 39.9 % (32.4-45.2); HEMOGLOBIN 12.9 GM/dL (10.7-15.3); LYMPH % 44.1 % (8-40); MCH 29.6 pg (25.7-33.7); MCHC 32.2 g/dl (32.0-36.0); MEAN CELL VOLUME 91.8 fl (80-96); MONO % 13.1 % (3.8-10.2); NEUT % 38.9 % (42.8-82.8); PLATELET COUNT 407 10^3/uL (134-434); RBC 4.35 M/mm3 (3.60-5.2); RDW 13.6 % (11.6-15.6); WHITE BLOOD COUNT 5.8 K/mm3 (4.0-10.0)
[2022-08-21] MEDS: LISINOPRIL 5 MG TABLET PO SCH (10:01)
[2022-08-21] MEDS: ASPIRIN 81 MG CHEWABLE TABLETS PO SCH (10:01)
[2022-08-21] MEDS: ENOXAPARIN NA (PORCINE) 40 MG/0.4 ML DISP.SYRIN SQ SCH (10:01)
[2022-08-21] MEDS: FOLIC ACID 1 MG TABLET (FP) PO SCH (10:01)
[2022-08-21] MEDS: CYANOCOBALAMIN (VITAMIN B-12) 100 MCG TABLET PO SCH (10:01)
[2022-08-21 10:26] LABS: CALCIUM 8.1 mg/dL (8.5-10.1)
[2022-08-21 10:27] LABS: ALBUMIN 2.2 g/dl (3.4-5.0); BLOOD UREA NITROGEN 9.2 mg/dL (7-18)
[2022-08-21 10:30] LABS: CREATININE 0.6 mg/dL (0.55-1.3)
[2022-08-21 10:31] LABS: BILIRUBIN,TOTAL 0.2 mg/dL (0.2-1); TOT PROT 5.8 g/dl (6.4-8.2)
[2022-08-21] MEDS: PHENYTOIN NA EXTENDED 100 MG CAPSULE (FP) PO SCH (22:13)
[2022-08-21] MEDS: PHENobarbital 30 MG TABLET PO SCH (22:13)
[2022-08-22] MEDS: LEVOTHYROXINE NA 125 MCG TABLET (FP) PO SCH (06:45)
[2022-08-22] MEDS: CYANOCOBALAMIN (VITAMIN B-12) 100 MCG TABLET PO SCH (10:25)
[2022-08-22] MEDS: LISINOPRIL 5 MG TABLET PO SCH (10:25)
[2022-08-22] MEDS: ASPIRIN 81 MG CHEWABLE TABLETS PO SCH (10:25)
[2022-08-22] MEDS: ENOXAPARIN NA (PORCINE) 40 MG/0.4 ML DISP.SYRIN SQ SCH (10:25)
[2022-08-22] MEDS: CEFTRIAXONE 1 GM in DEXTROSE 5%-WATER - 50 ML IVPB SCH (10:25)
[2022-08-22] MEDS: FOLIC ACID 1 MG TABLET (FP) PO SCH (10:25)
[2022-08-22 10:56] LABS: HEMATOCRIT 40.7 % (32.4-45.2); HEMOGLOBIN 13.1 GM/dL (10.7-15.3); MCH 29.7 pg (25.7-33.7); MCHC 32.2 g/dl (32.0-36.0); MEAN CELL VOLUME 92.2 fl (80-96); MEAN PLT VOLUME 6.7 fl (7.5-11.1); PLATELET COUNT 435 10^3/uL (134-434); RBC 4.41 M/mm3 (3.60-5.2); RDW 13.9 % (11.6-15.6); WHITE BLOOD COUNT 5.8 K/mm3 (4.0-10.0)
[2022-08-22 11:25] LABS: ALBUMIN 2.3 g/dl (3.4-5.0); BLOOD UREA NITROGEN 10.5 mg/dL (7-18); CALCIUM 8.5 mg/dL (8.5-10.1)
[2022-08-22 11:28] LABS: CREATININE 0.6 mg/dL (0.55-1.3)
[2022-08-22 11:30] LABS: BILIRUBIN,TOTAL 0.4 mg/dL (0.2-1); TOT PROT 6.1 g/dl (6.4-8.2)
[2022-08-22 12:46] VITALS: BP 133/62; PULSE 80; TEMP 97.6
== END 2022-08-22 15:45 | disposition home or self-care (01) | DRG 689 ==
LOC: JER 19:41 → JERBED 08-18 03:28 → OBSVTOIN 08-18 09:15 → J5S 08-19 04:36
PROVIDERS: ADMIT Internal Medicine; ATTEND Internal Medicine
DX: N39.0 Urinary tract infection, site not specified (principal); G93.41 Metabolic encephalopathy; U07.1 COVID-19; B95.4 Other streptococcus as the cause of diseases classified elsewhere; I10 Essential (primary) hypertension; E78.00 Pure hypercholesterolemia, unspecified; E78.5 Hyperlipidemia, unspecified; E03.9 Hypothyroidism, unspecified; M19.90 Unspecified osteoarthritis, unspecified site; N28.1 Cyst of kidney, acquired; R29.6 Repeated falls; G40.309 Generalized idiopathic epilepsy and epileptic syndromes, not intractable, without status epilepticus
CPT/HCPCS: 0241U-QW; 36415; 70450-TC; 71045-TC-FY; 72125-TC; 74174-TC; 80053; 80185; 80186; 81003; 83605; 83690; 83735; 84100; 84484; 85025; 85027; 85610; 85730; 87086; 93005; 93010; 97116-GP; 97161-GP; 99285-25; G0378; Q9967

== ENCOUNTER 2022-10-07 17:47 | Inpatient (IN) | payer OTHER ==
[2022-10-07] MEDS ORDERED: SODIUM CHLORIDE 0.9% 500 ML INFUS.BAG IV ONE (18:22)
[2022-10-07 20:27] LABS: BASO % 0.4 % (0-2.0); EOS % 0.9 % (0-4.5); HEMATOCRIT 42.1 % (32.4-45.2); HEMOGLOBIN 13.6 GM/dL (10.7-15.3); LYMPH % 20.2 % (8-40); MCH 30.5 pg (25.7-33.7); MCHC 32.2 g/dl (32.0-36.0); MEAN CELL VOLUME 94.8 fl (80-96); MEAN PLT VOLUME 7.4 fl (7.5-11.1); MONO % 8.7 % (3.8-10.2); NEUT % 69.8 % (42.8-82.8); PLATELET COUNT 306 10^3/uL (134-434); RBC 4.44 M/mm3 (3.60-5.2); RDW 14.3 % (11.6-15.6); WHITE BLOOD COUNT 12.6 K/mm3 (4.0-10.0)
[2022-10-07] MEDS ORDERED: ACETAMINOPHEN 1000 MG/100 ML BAG IVPB ONE (20:28)
[2022-10-07] MEDS ORDERED: ACETAMINOPHEN INJECTION 100 ML IVPB ONE (20:28)
[2022-10-07 20:47] LABS: ALBUMIN 2.7 g/dl (3.4-5.0); BLOOD UREA NITROGEN 27.6 mg/dL (7-18); CALCIUM 8.6 mg/dL (8.5-10.1); MAGNESIUM 2.2 mg/dL (1.8-2.4)
[2022-10-07 20:50] LABS: CREATININE 0.8 mg/dL (0.55-1.3); PHOSPHOROUS 3.9 mg/dL (2.5-4.9)
[2022-10-07 20:51] LABS: BILIRUBIN,TOTAL 0.3 mg/dL (0.2-1)
[2022-10-07 20:52] LABS: TOT PROT 6.6 g/dl (6.4-8.2)
[2022-10-07 21:55] LABS: EPI CELLS >36 /uL (0-25.1); HYALINE CASTS 0 /uL (0-3.1); URINE APPEARANCE CLOUDY; URINE BACTERIA 8515 /uL (0-1359); URINE BILIRUBIN NEGATIVE (NEGATIVE); URINE COLOR YELLOW; URINE GLUCOSE (UA) NEGATIVE (NEGATIVE); URINE KETONE NEGATIVE (NEGATIVE); URINE LEUK ESTERASE 1+ (NEGATIVE); URINE NITRITE NEGATIVE (NEGATIVE); URINE PROTEIN TRACE (NEGATIVE); URINE RBC 22 /uL (0-23.9); URINE UROBILINOGEN 0.2 mg/dL (0.2-1.0); URINE WBC 54 /uL (0-25.8)
[2022-10-07] MEDS ORDERED: CEFTRIAXONE 1 GM in DEXTROSE 5%-WATER - 100 ML IVPB ONE (23:05)
[2022-10-07] MEDS ORDERED: CEFTRIAXONE 1 GM/50 ML BAG ONE (23:12)
[2022-10-08 00:46] LABS: BASO % 0.7 % (0-2.0); EOS % 0.2 % (0-4.5); HEMATOCRIT 39.1 % (32.4-45.2); LYMPH % 18.3 % (8-40); MCHC 33.2 g/dl (32.0-36.0); MEAN CELL VOLUME 93.2 fl (80-96); MEAN PLT VOLUME 6.8 fl (7.5-11.1); MONO % 8.5 % (3.8-10.2); NEUT % 72.3 % (42.8-82.8); PLATELET COUNT 273 10^3/uL (134-434); RBC 4.19 M/mm3 (3.60-5.2); RDW 14.6 % (11.6-15.6); WHITE BLOOD COUNT 12.4 K/mm3 (4.0-10.0)
[2022-10-08] MEDS ORDERED: CIPROFLOXACIN 500 MG TABLET (RESTRICTED TO ID) PO ONE (05:38)
[2022-10-08] MEDS ORDERED: ACETAMINOPHEN 1000 MG/100 ML BAG IVPB ONE (05:52)
[2022-10-08] MEDS ORDERED: ACETAMINOPHEN INJECTION 100 ML IVPB ONE (05:54)
[2022-10-08] MEDS: LEVOTHYROXINE NA 125 MCG TABLET (FP) PO SCH (09:40)
[2022-10-08] MEDS ORDERED: LEVOTHYROXINE NA 50 MCG TABLET (FP) ONE (09:47)
[2022-10-08] MEDS ORDERED: LEVOTHYROXINE NA 75 MCG TABLET (FP) ONE (09:47)
[2022-10-08] MEDS ORDERED: FOLIC ACID 1 MG TABLET (FP) ONE (09:47)
[2022-10-08] MEDS ORDERED: LISINOPRIL 5 MG TABLET ONE (09:47)
[2022-10-08] MEDS ORDERED: CEFTRIAXONE 1 GM/50 ML BAG ONE (09:48)
[2022-10-08] MEDS ORDERED: LEVOTHYROXINE NA 25 MCG TABLET (FP) ONE (09:49)
[2022-10-08] MEDS: CYANOCOBALAMIN (VITAMIN B-12) 100 MCG TABLET PO SCH (09:52)
[2022-10-08] MEDS ORDERED: ASPIRIN 81 MG CHEWABLE TABLETS PO SCH (10:00)
[2022-10-08] MEDS: LISINOPRIL 5 MG TABLET PO SCH (10:00)
[2022-10-08] MEDS: FOLIC ACID 1 MG TABLET (FP) PO SCH (10:00)
[2022-10-08] MEDS: CEFTRIAXONE 1 GM in DEXTROSE 5%-WATER - 50 ML IVPB SCH (10:00)
[2022-10-08 16:31] VITALS: BMI 33.2
[2022-10-08] MEDS: PHENobarbital 30 MG TABLET PO SCH (21:56)
[2022-10-08] MEDS: PHENYTOIN NA EXTENDED 100 MG CAPSULE (FP) PO SCH (22:28)
[2022-10-09] MEDS: LEVOTHYROXINE NA 125 MCG TABLET (FP) PO SCH (06:32)
[2022-10-09 08:53] LABS: BASO % 0.3 % (0-2.0); EOS % 0.3 % (0-4.5); LYMPH % 17.9 % (8-40); MCH 31.1 pg (25.7-33.7); MCHC 33.4 g/dl (32.0-36.0); MEAN PLT VOLUME 7.1 fl (7.5-11.1); MONO % 10.8 % (3.8-10.2); NEUT % 70.7 % (42.8-82.8); PLATELET COUNT 252 10^3/uL (134-434); RBC 3.87 M/mm3 (3.60-5.2); RDW 14.7 % (11.6-15.6); WHITE BLOOD COUNT 18.4 K/mm3 (4.0-10.0)
[2022-10-09 09:35] LABS: CREATININE 0.7 mg/dL (0.55-1.3)
[2022-10-09] MEDS: FOLIC ACID 1 MG TABLET (FP) PO SCH (09:59)
[2022-10-09] MEDS: LISINOPRIL 5 MG TABLET PO SCH (09:59)
[2022-10-09] MEDS: CEFTRIAXONE 1 GM in DEXTROSE 5%-WATER - 50 ML IVPB SCH (09:59)
[2022-10-09] MEDS: CYANOCOBALAMIN (VITAMIN B-12) 100 MCG TABLET PO SCH (09:59)
[2022-10-09] MEDS: PHENYTOIN NA EXTENDED 100 MG CAPSULE (FP) PO SCH (21:29)
[2022-10-09] MEDS: PHENobarbital 30 MG TABLET PO SCH (21:29)
[2022-10-10] MEDS: LEVOTHYROXINE NA 125 MCG TABLET (FP) PO SCH (06:14)
[2022-10-10 09:23] LABS: BASO % 0.5 % (0-2.0); EOS % 0.7 % (0-4.5); HEMATOCRIT 36.8 % (32.4-45.2); HEMOGLOBIN 11.8 GM/dL (10.7-15.3); LYMPH % 17.7 % (8-40); MCHC 32.1 g/dl (32.0-36.0); MEAN CELL VOLUME 93.5 fl (80-96); MEAN PLT VOLUME 7.5 fl (7.5-11.1); MONO % 8.6 % (3.8-10.2); NEUT % 72.5 % (42.8-82.8); PLATELET COUNT 265 10^3/uL (134-434); RBC 3.94 M/mm3 (3.60-5.2); RDW 14.7 % (11.6-15.6); WHITE BLOOD COUNT 16.2 K/mm3 (4.0-10.0)
[2022-10-10] MEDS: FOLIC ACID 1 MG TABLET (FP) PO SCH (09:35)
[2022-10-10] MEDS: CYANOCOBALAMIN (VITAMIN B-12) 100 MCG TABLET PO SCH (09:35)
[2022-10-10] MEDS: LISINOPRIL 5 MG TABLET PO SCH (09:35)
[2022-10-10 09:58] LABS: CALCIUM 7.8 mg/dL (8.5-10.1)
[2022-10-10 10:02] LABS: CREATININE 0.6 mg/dL (0.55-1.3)
[2022-10-10 10:03] LABS: BILIRUBIN,TOTAL 0.3 mg/dL (0.2-1); TOT PROT 5.4 g/dl (6.4-8.2)
[2022-10-10] MEDS: CEFTRIAXONE 1 GM in DEXTROSE 5%-WATER - 50 ML IVPB SCH (10:32)
[2022-10-10] MEDS: PHENYTOIN NA EXTENDED 100 MG CAPSULE (FP) PO SCH (23:17)
[2022-10-10] MEDS: PHENobarbital 30 MG TABLET PO SCH (23:17)
[2022-10-11] MEDS: LEVOTHYROXINE NA 125 MCG TABLET (FP) PO SCH (06:58)
[2022-10-11] MEDS ORDERED: ACETAMINOPHEN 325 MG TABLET (FP) PO PRN (07:36)
[2022-10-11 08:57] LABS: BASO % 0.5 % (0-2.0); EOS % 1.2 % (0-4.5); HEMATOCRIT 38.1 % (32.4-45.2); HEMOGLOBIN 12.3 GM/dL (10.7-15.3); LYMPH % 23.6 % (8-40); MCH 30.4 pg (25.7-33.7); MCHC 32.3 g/dl (32.0-36.0); MEAN CELL VOLUME 94.1 fl (80-96); MEAN PLT VOLUME 7.6 fl (7.5-11.1); MONO % 9.3 % (3.8-10.2); NEUT % 65.4 % (42.8-82.8); PLATELET COUNT 293 10^3/uL (134-434); RBC 4.05 M/mm3 (3.60-5.2); RDW 14.5 % (11.6-15.6); WHITE BLOOD COUNT 11.6 K/mm3 (4.0-10.0)
[2022-10-11 09:15] LABS: CALCIUM 7.9 mg/dL (8.5-10.1)
[2022-10-11 09:18] LABS: CREATININE 0.6 mg/dL (0.55-1.3)
[2022-10-11 09:20] LABS: BILIRUBIN,TOTAL 0.2 mg/dL (0.2-1); TOT PROT 5.7 g/dl (6.4-8.2)
[2022-10-11] MEDS: FOLIC ACID 1 MG TABLET (FP) PO SCH (10:34)
[2022-10-11] MEDS: CYANOCOBALAMIN (VITAMIN B-12) 100 MCG TABLET PO SCH (10:34)
[2022-10-11] MEDS: LISINOPRIL 5 MG TABLET PO SCH (10:34)
[2022-10-11] MEDS: CEFTRIAXONE 1 GM in DEXTROSE 5%-WATER - 50 ML IVPB SCH (10:34)
[2022-10-11] MEDS ORDERED: INSULIN (NOVOLOG) ASPART 100 UNITS/ML 10ML VIAL ONE (21:38)
[2022-10-11] MEDS: PHENYTOIN NA EXTENDED 100 MG CAPSULE (FP) PO SCH (22:24)
[2022-10-11] MEDS: PHENobarbital 30 MG TABLET PO SCH (22:25)
[2022-10-12] MEDS: LEVOTHYROXINE NA 125 MCG TABLET (FP) PO SCH (06:10)
[2022-10-12] MEDS ORDERED: oxyCODONE HCL 5 MG TABLET PO PRN (07:51)
[2022-10-12 10:07] LABS: BASO % 0.7 % (0-2.0); EOS % 1.7 % (0-4.5); HEMATOCRIT 37.4 % (32.4-45.2); HEMOGLOBIN 12.3 GM/dL (10.7-15.3); LYMPH % 25.4 % (8-40); MCHC 32.9 g/dl (32.0-36.0); MEAN CELL VOLUME 94.4 fl (80-96); MEAN PLT VOLUME 7.3 fl (7.5-11.1); NEUT % 65.2 % (42.8-82.8); PLATELET COUNT 329 10^3/uL (134-434); RBC 3.96 M/mm3 (3.60-5.2); RDW 14.7 % (11.6-15.6); WHITE BLOOD COUNT 9.8 K/mm3 (4.0-10.0)
[2022-10-12 10:25] LABS: CALCIUM 7.7 mg/dL (8.5-10.1)
[2022-10-12 10:26] LABS: BLOOD UREA NITROGEN 10.6 mg/dL (7-18)
[2022-10-12 10:29] LABS: CREATININE 0.6 mg/dL (0.55-1.3)
[2022-10-12] MEDS: CEFTRIAXONE 1 GM in DEXTROSE 5%-WATER - 50 ML IVPB SCH (10:57)
[2022-10-12] MEDS: ACETAMINOPHEN 500 MG TABLET (FP) PO SCH ×3 (10:57→22:08)
[2022-10-12] MEDS: LISINOPRIL 5 MG TABLET PO SCH (10:58)
[2022-10-12] MEDS: FOLIC ACID 1 MG TABLET (FP) PO SCH (10:58)
[2022-10-12] MEDS: CYANOCOBALAMIN (VITAMIN B-12) 100 MCG TABLET PO SCH (10:58)
[2022-10-12] MEDS: PHENobarbital 30 MG TABLET PO SCH (22:07)
[2022-10-12] MEDS: PHENYTOIN NA EXTENDED 100 MG CAPSULE (FP) PO SCH (22:09)
[2022-10-13] MEDS: ACETAMINOPHEN 500 MG TABLET (FP) PO SCH ×3 (05:05→22:40)
[2022-10-13 06:31] LABS: BASO % 0.6 % (0-2.0); EOS % 1.2 % (0-4.5); HEMATOCRIT 37.7 % (32.4-45.2); HEMOGLOBIN 12.4 GM/dL (10.7-15.3); LYMPH % 19.1 % (8-40); MCH 30.9 pg (25.7-33.7); MCHC 32.9 g/dl (32.0-36.0); MEAN CELL VOLUME 94.1 fl (80-96); MEAN PLT VOLUME 7.1 fl (7.5-11.1); MONO % 10.5 % (3.8-10.2); NEUT % 68.6 % (42.8-82.8); PLATELET COUNT 349 10^3/uL (134-434); RBC 4.01 M/mm3 (3.60-5.2); RDW 14.8 % (11.6-15.6); WHITE BLOOD COUNT 11.1 K/mm3 (4.0-10.0)
[2022-10-13] MEDS: LEVOTHYROXINE NA 125 MCG TABLET (FP) PO SCH (06:45)
[2022-10-13 06:54] LABS: CREATININE 0.6 mg/dL (0.55-1.3)
[2022-10-13 06:55] LABS: BLOOD UREA NITROGEN 11.2 mg/dL (7-18); CALCIUM 7.6 mg/dL (8.5-10.1)
[2022-10-13 06:57] LABS: BILIRUBIN,TOTAL 0.2 mg/dL (0.2-1); TOT PROT 5.2 g/dl (6.4-8.2)
[2022-10-13] MEDS: FOLIC ACID 1 MG TABLET (FP) PO SCH (10:26)
[2022-10-13] MEDS: CYANOCOBALAMIN (VITAMIN B-12) 100 MCG TABLET PO SCH (10:27)
[2022-10-13] MEDS: LISINOPRIL 5 MG TABLET PO SCH (10:27)
[2022-10-13] MEDS ORDERED: POLYETHYLENE GLYCOL (HEALTHYLAX) 3350 17 GM PACKET PO SCH (10:45)
[2022-10-13] MEDS: CEFTRIAXONE 1 GM in DEXTROSE 5%-WATER - 50 ML IVPB SCH (11:40)
[2022-10-13] MEDS: SODIUM CHLORIDE 1,000 ML IV SCH (16:34)
[2022-10-13] MEDS: PIPERACILLIN/TAZOB 3.375 GM 3.375 GM in DEXTROSE 5%-WATER - 50 ML IVPB SCH (17:39)
[2022-10-13] MEDS: VANCOMYCIN 250 MG/5 ML ORAL SOLUTION PO SCH ×2 (18:24→23:32)
[2022-10-13] MEDS: PHENobarbital 30 MG TABLET PO SCH (22:40)
[2022-10-13] MEDS: PHENYTOIN NA EXTENDED 100 MG CAPSULE (FP) PO SCH (22:40)
[2022-10-14] MEDS: PIPERACILLIN/TAZOB 3.375 GM 3.375 GM in DEXTROSE 5%-WATER - 50 ML IVPB SCH ×3 (02:12→18:03)
[2022-10-14] MEDS: SODIUM CHLORIDE 1,000 ML IV SCH ×2 (06:08→16:20)
[2022-10-14] MEDS: ACETAMINOPHEN 500 MG TABLET (FP) PO SCH ×3 (06:08→22:04)
[2022-10-14] MEDS: LEVOTHYROXINE NA 125 MCG TABLET (FP) PO SCH (06:08)
[2022-10-14] MEDS: VANCOMYCIN 250 MG/5 ML ORAL SOLUTION PO SCH ×2 (06:09→11:43)
[2022-10-14 07:45] LABS: BASO % 0.7 % (0-2.0); EOS % 2.6 % (0-4.5); HEMATOCRIT 36.6 % (32.4-45.2); HEMOGLOBIN 12.1 GM/dL (10.7-15.3); LYMPH % 34.9 % (8-40); MEAN CELL VOLUME 93.8 fl (80-96); MEAN PLT VOLUME 7.2 fl (7.5-11.1); MONO % 10.6 % (3.8-10.2); NEUT % 51.2 % (42.8-82.8); PLATELET COUNT 367 10^3/uL (134-434); RDW 14.8 % (11.6-15.6)
[2022-10-14 08:32] LABS: CALCIUM 7.7 mg/dL (8.5-10.1)
[2022-10-14 08:33] LABS: BLOOD UREA NITROGEN 9.6 mg/dL (7-18)
[2022-10-14 08:36] LABS: CREATININE 0.6 mg/dL (0.55-1.3)
[2022-10-14] MEDS ORDERED: LIDOCAINE HCL 2% JELLY (30 ML/TUBE) TP ONE (08:53)
[2022-10-14] MEDS ORDERED: LIDOCAINE HCL 2% JELLY 6 ML TP ONE (09:45)
[2022-10-14] MEDS: CYANOCOBALAMIN (VITAMIN B-12) 100 MCG TABLET PO SCH (10:25)
[2022-10-14] MEDS: LISINOPRIL 5 MG TABLET PO SCH (10:25)
[2022-10-14] MEDS: FOLIC ACID 1 MG TABLET (FP) PO SCH (10:25)
[2022-10-14] MEDS ORDERED: ONDANSETRON 4 MG/2 ML VIAL IVPUSH PRN (15:01)
[2022-10-14] MEDS: PHENobarbital 30 MG TABLET PO SCH (22:04)
[2022-10-14] MEDS: PHENYTOIN NA EXTENDED 100 MG CAPSULE (FP) PO SCH (22:04)
[2022-10-15] MEDS ORDERED: BENZOCAINE 28 GM HEMORRHOIDAL OINTMENT RC PRN (03:04)
[2022-10-15] MEDS: PIPERACILLIN/TAZOB 3.375 GM 3.375 GM in DEXTROSE 5%-WATER - 50 ML IVPB SCH ×3 (03:07→17:11)
[2022-10-15] MEDS: ACETAMINOPHEN 500 MG TABLET (FP) PO SCH ×3 (05:33→22:37)
[2022-10-15] MEDS: SODIUM CHLORIDE 1,000 ML IV SCH ×2 (05:33→17:10)
[2022-10-15] MEDS: LEVOTHYROXINE NA 125 MCG TABLET (FP) PO SCH (06:37)
[2022-10-15 08:40] LABS: HEMATOCRIT 36.5 % (32.4-45.2); MCH 30.7 pg (25.7-33.7); MCHC 32.8 g/dl (32.0-36.0); MEAN CELL VOLUME 93.5 fl (80-96); MEAN PLT VOLUME 6.7 fl (7.5-11.1); PLATELET COUNT 401 10^3/uL (134-434); RBC 3.91 M/mm3 (3.60-5.2); RDW 14.7 % (11.6-15.6); WHITE BLOOD COUNT 7.2 K/mm3 (4.0-10.0)
[2022-10-15 09:05] LABS: CALCIUM 7.4 mg/dL (8.5-10.1)
[2022-10-15 09:06] LABS: ALBUMIN 1.9 g/dl (3.4-5.0); CREATININE 0.5 mg/dL (0.55-1.3)
[2022-10-15 09:07] LABS: BILIRUBIN,TOTAL 0.2 mg/dL (0.2-1); TOT PROT 5.2 g/dl (6.4-8.2)
[2022-10-15] MEDS: LISINOPRIL 5 MG TABLET PO SCH (09:39)
[2022-10-15] MEDS: FOLIC ACID 1 MG TABLET (FP) PO SCH (09:39)
[2022-10-15] MEDS: CYANOCOBALAMIN (VITAMIN B-12) 100 MCG TABLET PO SCH (09:39)
[2022-10-15 09:52] LABS: ANISOCYTOSIS 0; MACROCYTOSIS 1+
[2022-10-15] MEDS: HEPARIN NA (PORCINE) 5,000 UNITS/ML 1ML VIAL SQ SCH ×2 (13:38→22:37)
[2022-10-15] MEDS: PHENobarbital 30 MG TABLET PO SCH (22:37)
[2022-10-15] MEDS: PHENYTOIN NA EXTENDED 100 MG CAPSULE (FP) PO SCH (22:37)
[2022-10-16] MEDS: PIPERACILLIN/TAZOB 3.375 GM 3.375 GM in DEXTROSE 5%-WATER - 50 ML IVPB SCH ×3 (02:22→17:11)
[2022-10-16] MEDS: ACETAMINOPHEN 500 MG TABLET (FP) PO SCH ×3 (06:13→22:55)
[2022-10-16] MEDS: SODIUM CHLORIDE 1,000 ML IV SCH ×2 (06:13→17:11)
[2022-10-16] MEDS: LEVOTHYROXINE NA 125 MCG TABLET (FP) PO SCH (06:13)
[2022-10-16] MEDS: HEPARIN NA (PORCINE) 5,000 UNITS/ML 1ML VIAL SQ SCH ×3 (06:14→22:55)
[2022-10-16 09:04] LABS: EOS % 3.5 % (0-4.5); HEMATOCRIT 38.7 % (32.4-45.2); HEMOGLOBIN 12.7 GM/dL (10.7-15.3); LYMPH % 38.6 % (8-40); MCH 30.4 pg (25.7-33.7); MCHC 32.7 g/dl (32.0-36.0); NEUT % 47.9 % (42.8-82.8); PLATELET COUNT 467 10^3/uL (134-434); RBC 4.16 M/mm3 (3.60-5.2); RDW 14.7 % (11.6-15.6); WHITE BLOOD COUNT 7.6 K/mm3 (4.0-10.0)
[2022-10-16] MEDS: CYANOCOBALAMIN (VITAMIN B-12) 100 MCG TABLET PO SCH (09:06)
[2022-10-16] MEDS: FOLIC ACID 1 MG TABLET (FP) PO SCH (09:06)
[2022-10-16] MEDS: LISINOPRIL 5 MG TABLET PO SCH (09:06)
[2022-10-16 09:11] LABS: BLOOD UREA NITROGEN 4.8 mg/dL (7-18); CALCIUM 7.5 mg/dL (8.5-10.1)
[2022-10-16 09:15] LABS: CREATININE 0.5 mg/dL (0.55-1.3)
[2022-10-16 09:16] LABS: BILIRUBIN,TOTAL 0.4 mg/dL (0.2-1); TOT PROT 5.7 g/dl (6.4-8.2)
[2022-10-16] MEDS: NYSTATIN POWDER 100,000 UNITS/GM - 15 GM TOPICAL POWDER TP SCH ×2 (12:11→22:55)
[2022-10-16] MEDS: PHENYTOIN NA EXTENDED 100 MG CAPSULE (FP) PO SCH (22:54)
[2022-10-16] MEDS: PHENobarbital 30 MG TABLET PO SCH (22:54)
[2022-10-17] MEDS: PIPERACILLIN/TAZOB 3.375 GM 3.375 GM in DEXTROSE 5%-WATER - 50 ML IVPB SCH ×3 (02:24→17:46)
[2022-10-17] MEDS: HEPARIN NA (PORCINE) 5,000 UNITS/ML 1ML VIAL SQ SCH ×3 (06:10→22:38)
[2022-10-17] MEDS: ACETAMINOPHEN 500 MG TABLET (FP) PO SCH ×3 (06:10→22:37)
[2022-10-17] MEDS: SODIUM CHLORIDE 1,000 ML IV SCH (06:10)
[2022-10-17] MEDS: LEVOTHYROXINE NA 125 MCG TABLET (FP) PO SCH (06:12)
[2022-10-17] MEDS ORDERED: TAMSULOSIN HCL 0.4 MG CAP PO ONE (09:08)
[2022-10-17 10:34] LABS: HEMATOCRIT 35.4 % (32.4-45.2); HEMOGLOBIN 11.8 GM/dL (10.7-15.3); MCH 31.1 pg (25.7-33.7); MCHC 33.2 g/dl (32.0-36.0); MEAN CELL VOLUME 93.6 fl (80-96); MEAN PLT VOLUME 6.8 fl (7.5-11.1); PLATELET COUNT 502 10^3/uL (134-434); RBC 3.79 M/mm3 (3.60-5.2); RDW 14.6 % (11.6-15.6); WHITE BLOOD COUNT 7.1 K/mm3 (4.0-10.0)
[2022-10-17 10:58] LABS: CHLORIDE 126 mmol/L (98-107); SODIUM 148 mmol/L (136-145)
[2022-10-17 11:01] LABS: CO2 18 mmol/L (21-32)
[2022-10-17 11:05] LABS: SGPT/ALT 9 U/L (13-61)
[2022-10-17 11:07] LABS: BILIRUBIN,TOTAL 0.4 mg/dL (0.2-1); CREATININE 0.2 mg/dL (0.55-1.3); SGOT/AST 13 U/L (15-37)
[2022-10-17 11:19] LABS: ALBUMIN 1.1 g/dl (3.4-5.0); ALK PHOS 48 U/L (45-117); ANION GAP 4 MMOL/L (8-16); BLOOD UREA NITROGEN 2.9 mg/dL (7-18); TOT PROT 3.1 g/dl (6.4-8.2)
[2022-10-17] MEDS ORDERED: POTASSIUM CHLORIDE TABS 20 MEQ TABLET.ER (FP) PO ONE ×2 (11:30→15:00)
[2022-10-17 11:32] LABS: ANISOCYTOSIS 0; HELMET CELLS 0; HOWELL-JOLLY BODIES 0; MACROCYTOSIS 0; OVALOCYTE 0; ROULEAU 0; SICKELED CELLS 0; TARGET CELLS 0; TEAR DROP CELLS 0; TOXIC GRANULATION 0
[2022-10-17 11:42] LABS: CALCIUM < 5.0 mg/dL (8.5-10.1)
[2022-10-17] MEDS: LISINOPRIL 5 MG TABLET PO SCH (11:44)
[2022-10-17] MEDS: CYANOCOBALAMIN (VITAMIN B-12) 100 MCG TABLET PO SCH (11:44)
[2022-10-17] MEDS: FOLIC ACID 1 MG TABLET (FP) PO SCH (11:44)
[2022-10-17] MEDS: NYSTATIN POWDER 100,000 UNITS/GM - 15 GM TOPICAL POWDER TP SCH ×2 (11:47→22:42)
[2022-10-17] MEDS: KCL 10 MEQ IVPB 10 MEQ/100 ML INFUS.BAG IVPB SCH ×3 (12:09→15:42)
[2022-10-17] MEDS ORDERED: CALCIUM GLUCONATE 10% - 1,000 MG/10 ML VIAL IVPUSH ONE (12:10)
[2022-10-17 12:12] LABS: MAGNESIUM 0.9 mg/dL (1.8-2.4)
[2022-10-17] MEDS ORDERED: MAGNESIUM SULFATE IN WATER 2 GM/50 ML IVPB IVPB ONE (14:00)
[2022-10-17 14:53] LABS: GLUCOSE,RANDOM 73 mg/dL (74-106)
[2022-10-17] MEDS: DEXTROSE 5%-LACTATED RINGERS 1,000 ML IV SCH (17:09)
[2022-10-17] MEDS ORDERED: LOPERAMIDE HCL 2 MG CAPSULE PO PRN (17:35)
[2022-10-17] MEDS ORDERED: INSULIN (NOVOLOG) ASPART 100 UNITS/ML 10ML VIAL ONE (17:54)
[2022-10-17 19:09] LABS: BLOOD UREA NITROGEN 3.9 mg/dL (7-18); MAGNESIUM 2.3 mg/dL (1.8-2.4)
[2022-10-17 19:11] LABS: CREATININE 0.5 mg/dL (0.55-1.3); PHOSPHOROUS 2.7 mg/dL (2.5-4.9)
[2022-10-17 19:13] LABS: BILIRUBIN,TOTAL 0.1 mg/dL (0.2-1)
[2022-10-17 19:18] LABS: TOT PROT 5.6 g/dl (6.4-8.2)
[2022-10-17] MEDS: PHENobarbital 30 MG TABLET PO SCH (22:33)
[2022-10-17] MEDS ORDERED: NAPH,MB-DB/K PH,MBDB POWDER PACKET PO ONE (22:55)
[2022-10-17] MEDS: PHENYTOIN NA EXTENDED 100 MG CAPSULE (FP) PO SCH (23:18)
[2022-10-18] MEDS: PIPERACILLIN/TAZOB 3.375 GM 3.375 GM in DEXTROSE 5%-WATER - 50 ML IVPB SCH ×3 (01:20→17:18)
[2022-10-18] MEDS: LEVOTHYROXINE NA 125 MCG TABLET (FP) PO SCH (06:10)
[2022-10-18] MEDS: ACETAMINOPHEN 500 MG TABLET (FP) PO SCH ×3 (06:10→21:54)
[2022-10-18] MEDS: HEPARIN NA (PORCINE) 5,000 UNITS/ML 1ML VIAL SQ SCH ×3 (06:10→21:54)
[2022-10-18] MEDS: DEXTROSE 5%-LACTATED RINGERS 1,000 ML IV SCH ×3 (08:21→21:57)
[2022-10-18] MEDS: TAMSULOSIN HCL 0.4 MG CAP PO SCH (08:22)
[2022-10-18 08:40] LABS: HEMATOCRIT 38.6 % (32.4-45.2); HEMOGLOBIN 12.7 GM/dL (10.7-15.3); MCH 30.9 pg (25.7-33.7); MEAN CELL VOLUME 93.5 fl (80-96); MEAN PLT VOLUME 6.7 fl (7.5-11.1); PLATELET COUNT 561 10^3/uL (134-434); RBC 4.12 M/mm3 (3.60-5.2); RDW 14.7 % (11.6-15.6); WHITE BLOOD COUNT 8.5 K/mm3 (4.0-10.0)
[2022-10-18 08:57] LABS: CALCIUM 8.2 mg/dL (8.5-10.1); MAGNESIUM 2.1 mg/dL (1.8-2.4)
[2022-10-18 09:00] LABS: PHOSPHOROUS 3.6 mg/dL (2.5-4.9)
[2022-10-18 09:02] LABS: BILIRUBIN,TOTAL 0.2 mg/dL (0.2-1); TOT PROT 5.8 g/dl (6.4-8.2)
[2022-10-18 09:13] LABS: BLOOD UREA NITROGEN 4.2 mg/dL (7-18); CREATININE 0.6 mg/dL (0.55-1.3)
[2022-10-18] MEDS: FOLIC ACID 1 MG TABLET (FP) PO SCH (09:35)
[2022-10-18] MEDS: CYANOCOBALAMIN (VITAMIN B-12) 100 MCG TABLET PO SCH (09:36)
[2022-10-18] MEDS: LISINOPRIL 5 MG TABLET PO SCH (09:36)
[2022-10-18] MEDS: NYSTATIN POWDER 100,000 UNITS/GM - 15 GM TOPICAL POWDER TP SCH ×2 (09:41→21:55)
[2022-10-18 16:40] LABS: CALCIUM 8.6 mg/dL (8.5-10.1)
[2022-10-18 16:44] LABS: CREATININE 1.9 mg/dL (0.55-1.3)
[2022-10-18 16:46] LABS: BILIRUBIN,TOTAL 0.4 mg/dL (0.2-1); TOT PROT 6.7 g/dl (6.4-8.2)
[2022-10-18 16:53] LABS: ALBUMIN 2.6 g/dl (3.4-5.0); BLOOD UREA NITROGEN 44.7 mg/dL (7-18)
[2022-10-18] MEDS: PHENYTOIN NA EXTENDED 100 MG CAPSULE (FP) PO SCH (21:53)
[2022-10-18] MEDS: PHENobarbital 30 MG TABLET PO SCH (21:54)
[2022-10-19] MEDS: PIPERACILLIN/TAZOB 3.375 GM 3.375 GM in DEXTROSE 5%-WATER - 50 ML IVPB SCH ×2 (02:02→09:26)
[2022-10-19] MEDS: LEVOTHYROXINE NA 125 MCG TABLET (FP) PO SCH (06:31)
[2022-10-19] MEDS: ACETAMINOPHEN 500 MG TABLET (FP) PO SCH ×3 (06:31→21:27)
[2022-10-19] MEDS: HEPARIN NA (PORCINE) 5,000 UNITS/ML 1ML VIAL SQ SCH ×3 (06:31→21:26)
[2022-10-19 09:24] LABS: HEMATOCRIT 39.9 % (32.4-45.2); HEMOGLOBIN 13.3 GM/dL (10.7-15.3); MCHC 33.3 g/dl (32.0-36.0); MEAN CELL VOLUME 92.9 fl (80-96); MEAN PLT VOLUME 6.6 fl (7.5-11.1); PLATELET COUNT 585 10^3/uL (134-434); RBC 4.29 M/mm3 (3.60-5.2); WHITE BLOOD COUNT 8.7 K/mm3 (4.0-10.0)
[2022-10-19] MEDS: LISINOPRIL 5 MG TABLET PO SCH (09:26)
[2022-10-19] MEDS: CYANOCOBALAMIN (VITAMIN B-12) 100 MCG TABLET PO SCH (09:26)
[2022-10-19] MEDS: FOLIC ACID 1 MG TABLET (FP) PO SCH (09:26)
[2022-10-19] MEDS: TAMSULOSIN HCL 0.4 MG CAP PO SCH (09:26)
[2022-10-19] MEDS: NYSTATIN POWDER 100,000 UNITS/GM - 15 GM TOPICAL POWDER TP SCH ×2 (09:30→21:32)
[2022-10-19 09:55] LABS: CALCIUM 8.4 mg/dL (8.5-10.1)
[2022-10-19 09:56] LABS: ALBUMIN 2.1 g/dl (3.4-5.0); BLOOD UREA NITROGEN 5.1 mg/dL (7-18); MAGNESIUM 1.9 mg/dL (1.8-2.4)
[2022-10-19 09:58] LABS: CREATININE 0.7 mg/dL (0.55-1.3); PHOSPHOROUS 3.9 mg/dL (2.5-4.9)
[2022-10-19 09:59] LABS: BILIRUBIN,TOTAL 0.3 mg/dL (0.2-1)
[2022-10-19] MEDS: PHENobarbital 30 MG TABLET PO SCH (21:26)
[2022-10-19] MEDS: PHENYTOIN NA EXTENDED 100 MG CAPSULE (FP) PO SCH (21:31)
[2022-10-20] MEDS: HEPARIN NA (PORCINE) 5,000 UNITS/ML 1ML VIAL SQ SCH ×3 (05:40→22:43)
[2022-10-20] MEDS: ACETAMINOPHEN 500 MG TABLET (FP) PO SCH ×3 (05:40→22:42)
[2022-10-20] MEDS: LEVOTHYROXINE NA 125 MCG TABLET (FP) PO SCH (06:43)
[2022-10-20] MEDS ORDERED: LOPERAMIDE HCL 2 MG CAPSULE PO PRN (07:20)
[2022-10-20 08:27] LABS: ALBUMIN 2.1 g/dl (3.4-5.0); CALCIUM 8.3 mg/dL (8.5-10.1); MAGNESIUM 1.9 mg/dL (1.8-2.4)
[2022-10-20 08:28] LABS: BLOOD UREA NITROGEN 6.4 mg/dL (7-18)
[2022-10-20] MEDS: TAMSULOSIN HCL 0.4 MG CAP PO SCH (08:29)
[2022-10-20 08:30] LABS: CREATININE 0.6 mg/dL (0.55-1.3)
[2022-10-20 08:32] LABS: BILIRUBIN,TOTAL 0.4 mg/dL (0.2-1); TOT PROT 5.9 g/dl (6.4-8.2)
[2022-10-20 08:46] LABS: HEMATOCRIT 39.7 % (32.4-45.2); HEMOGLOBIN 12.9 GM/dL (10.7-15.3); MCH 29.9 pg (25.7-33.7); MCHC 32.4 g/dl (32.0-36.0); MEAN CELL VOLUME 92.2 fl (80-96); MEAN PLT VOLUME 6.4 fl (7.5-11.1); PLATELET COUNT 553 10^3/uL (134-434); RBC 4.31 M/mm3 (3.60-5.2); RDW 15.4 % (11.6-15.6); WHITE BLOOD COUNT 8.6 K/mm3 (4.0-10.0)
[2022-10-20] MEDS: FOLIC ACID 1 MG TABLET (FP) PO SCH (09:55)
[2022-10-20] MEDS: LISINOPRIL 5 MG TABLET PO SCH (09:55)
[2022-10-20] MEDS: CYANOCOBALAMIN (VITAMIN B-12) 100 MCG TABLET PO SCH (09:55)
[2022-10-20] MEDS: NYSTATIN POWDER 100,000 UNITS/GM - 15 GM TOPICAL POWDER TP SCH ×2 (09:57→23:00)
[2022-10-20] MEDS: PHENobarbital 30 MG TABLET PO SCH (22:40)
[2022-10-20] MEDS: PHENYTOIN NA EXTENDED 100 MG CAPSULE (FP) PO SCH (22:52)
[2022-10-21] MEDS: ACETAMINOPHEN 500 MG TABLET (FP) PO SCH ×2 (06:49→13:10)
[2022-10-21] MEDS: HEPARIN NA (PORCINE) 5,000 UNITS/ML 1ML VIAL SQ SCH ×2 (06:50→13:10)
[2022-10-21] MEDS: LEVOTHYROXINE NA 125 MCG TABLET (FP) PO SCH (06:50)
[2022-10-21] MEDS: CYANOCOBALAMIN (VITAMIN B-12) 100 MCG TABLET PO SCH (10:43)
[2022-10-21] MEDS: LISINOPRIL 5 MG TABLET PO SCH (10:43)
[2022-10-21] MEDS: TAMSULOSIN HCL 0.4 MG CAP PO SCH (10:43)
[2022-10-21] MEDS: FOLIC ACID 1 MG TABLET (FP) PO SCH (10:43)
[2022-10-21] MEDS: NYSTATIN POWDER 100,000 UNITS/GM - 15 GM TOPICAL POWDER TP SCH (10:44)
[2022-10-21 11:32] VITALS: RESP 18
[2022-10-21 18:03] VITALS: BP 142/67; PULSE 90; TEMP 98.2
== END 2022-10-21 20:00 | DRG 394 ==
LOC: JER 17:47 → JERBED 10-08 05:41 → J7W 10-08 15:52 → OBSVTOIN 10-12 08:10
PROVIDERS: ADMIT Internal Medicine
DX: K55.9 Vascular disorder of intestine, unspecified (principal); K62.5 Hemorrhage of anus and rectum; N13.4 Hydroureter; N17.9 Acute kidney failure, unspecified; N39.0 Urinary tract infection, site not specified; G40.909 Epilepsy, unspecified, not intractable, without status epilepticus; I10 Essential (primary) hypertension; E78.5 Hyperlipidemia, unspecified; E03.9 Hypothyroidism, unspecified; D72.829 Elevated white blood cell count, unspecified; R26.81 Unsteadiness on feet; E87.6 Hypokalemia; E83.42 Hypomagnesemia; E83.51 Hypocalcemia; R33.9 Retention of urine, unspecified; N32.89 Other specified disorders of bladder
CPT/HCPCS: 0241U-QW; 36415; 70450-TC; 71045-TC-FY; 72125-TC; 74177-TC; 80048; 80053; 80184; 80185; 81003; 82306; 82310; 82330; 82962; 83605; 83690; 83735; 83970; 84100; 85025; 85027; 86140; 86850; 86900; 86901; 87040; 87045; 87046; 87086; 87209; 87324; 87449; 93005; 93010; 97116-GP; 97161-GP; 99285-25; G0378; J1644; Q9967

== ENCOUNTER 2023-02-07 22:28 | Inpatient (IN) | payer OTHER ==
[2023-02-07 22:47] VITALS: BMI 32.3
[2023-02-07] MEDS ORDERED: ONDANSETRON 4 MG/2 ML VIAL IVPUSH ONE (22:59)
[2023-02-07] MEDS ORDERED: ONDANSETRON 4 MG/2 ML VIAL ONE (23:02)
[2023-02-07 23:21] LABS: BASO % 0.8 % (0-2.0); EOS % 0.9 % (0-4.5); HEMATOCRIT 41.9 % (32.4-45.2); HEMOGLOBIN 13.7 GM/dL (10.7-15.3); LYMPH % 19.1 % (8-40); MCH 30.6 pg (25.7-33.7); MCHC 32.8 g/dl (32.0-36.0); MEAN CELL VOLUME 93.3 fl (80-96); MEAN PLT VOLUME 6.4 fl (7.5-11.1); MONO % 8.5 % (3.8-10.2); NEUT % 70.7 % (42.8-82.8); PLATELET COUNT 295 10^3/uL (134-434); RBC 4.49 M/mm3 (3.60-5.2); RDW 13.8 % (11.6-15.6); WHITE BLOOD COUNT 8.8 K/mm3 (4.0-10.0)
[2023-02-07 23:32] LABS: INR 1.08 (0.83-1.09); PROTHROMBIN TIME (PATIENT) 12.5 SEC (9.7-13.0)
[2023-02-07 23:48] LABS: POTASSIUM 3.7 mmol/L (3.5-5.1)
[2023-02-07 23:51] LABS: CALCIUM 8.6 mg/dL (8.5-10.1)
[2023-02-07 23:52] LABS: ALBUMIN 2.8 g/dl (3.4-5.0); BLOOD UREA NITROGEN 17.8 mg/dL (7-18); MAGNESIUM 2.1 mg/dL (1.8-2.4)
[2023-02-07 23:55] LABS: CREATININE 0.7 mg/dL (0.55-1.3)
[2023-02-07 23:56] LABS: BILIRUBIN,TOTAL 0.3 mg/dL (0.2-1); TOT PROT 6.8 g/dl (6.4-8.2)
[2023-02-08 01:17] LABS: EPI CELLS >36 /uL (0-25.1); HYALINE CASTS 0 /uL (0-3.1); PH,URINE 7.5 (5.0-8.0); URINE APPEARANCE CLEAR; URINE BACTERIA 2941 /uL (0-1359); URINE BILIRUBIN NEGATIVE (NEGATIVE); URINE COLOR YELLOW; URINE GLUCOSE (UA) NEGATIVE (NEGATIVE); URINE KETONE NEGATIVE (NEGATIVE); URINE LEUK ESTERASE TRACE (NEGATIVE); URINE NITRITE NEGATIVE (NEGATIVE); URINE PROTEIN NEGATIVE (NEGATIVE); URINE RBC 40 /uL (0-23.9); URINE UROBILINOGEN 0.2 mg/dL (0.2-1.0); URINE WBC 27 /uL (0-25.8)
[2023-02-08] MEDS ORDERED: CEFTRIAXONE 1 GM in DEXTROSE 5%-WATER - 50 ML IVPB ONE (02:10)
[2023-02-08] MEDS ORDERED: CEFTRIAXONE 1 GM/50 ML BAG ONE (02:13)
[2023-02-08] MEDS ORDERED: ONDANSETRON 4 MG/2 ML VIAL IVPUSH PRN (03:42)
[2023-02-08] MEDS: LEVOTHYROXINE NA 125 MCG TABLET (FP) PO SCH (06:25)
[2023-02-08] MEDS: LACTATED RINGERS SOLUTION 1,000 ML/1,000 ML INFUS.BAG IV SCH ×2 (06:26)
[2023-02-08 07:35] LABS: HEMATOCRIT 42.2 % (32.4-45.2); HEMOGLOBIN 13.7 GM/dL (10.7-15.3); MCH 30.9 pg (25.7-33.7); MCHC 32.3 g/dl (32.0-36.0); MEAN CELL VOLUME 95.7 fl (80-96); MEAN PLT VOLUME 6.9 fl (7.5-11.1); PLATELET COUNT 305 10^3/uL (134-434); RBC 4.42 M/mm3 (3.60-5.2); RDW 13.7 % (11.6-15.6); WHITE BLOOD COUNT 7.1 K/mm3 (4.0-10.0)
[2023-02-08 07:59] LABS: POTASSIUM 4.1 mmol/L (3.5-5.1)
[2023-02-08 08:01] LABS: CALCIUM 8.7 mg/dL (8.5-10.1)
[2023-02-08 08:02] LABS: ALBUMIN 2.8 g/dl (3.4-5.0); BLOOD UREA NITROGEN 15.2 mg/dL (7-18)
[2023-02-08 08:05] LABS: CREATININE 0.6 mg/dL (0.55-1.3)
[2023-02-08 08:06] LABS: BILIRUBIN,TOTAL 0.2 mg/dL (0.2-1); TOT PROT 6.9 g/dl (6.4-8.2)
[2023-02-08] MEDS: LISINOPRIL 5 MG TABLET PO SCH (10:05)
[2023-02-08] MEDS: FOLIC ACID 1 MG TABLET (FP) PO SCH (10:05)
[2023-02-08] MEDS: ASPIRIN 81 MG CHEWABLE TABLETS PO SCH (10:05)
[2023-02-08] MEDS: ENOXAPARIN NA (PORCINE) 40 MG/0.4 ML DISP.SYRIN SQ SCH (10:05)
[2023-02-08] MEDS: PANTOPRAZOLE SODIUM 40 MG VIAL IVPUSH SCH (10:05)
[2023-02-08] MEDS: PHENYTOIN NA EXTENDED 100 MG CAPSULE (FP) PO SCH (22:34)
[2023-02-08] MEDS: PHENobarbital 30 MG TABLET PO SCH (22:34)
[2023-02-09] MEDS: LEVOTHYROXINE NA 125 MCG TABLET (FP) PO SCH (06:26)
[2023-02-09] MEDS ORDERED: SODIUM CHLORIDE 1,000 ML IV SCH (09:15)
[2023-02-09] MEDS: ASPIRIN 81 MG CHEWABLE TABLETS PO SCH (10:13)
[2023-02-09] MEDS: PANTOPRAZOLE SODIUM 40 MG VIAL IVPUSH SCH (10:14)
[2023-02-09] MEDS: FOLIC ACID 1 MG TABLET (FP) PO SCH (10:14)
[2023-02-09] MEDS: LISINOPRIL 5 MG TABLET PO SCH (10:14)
[2023-02-09] MEDS: ENOXAPARIN NA (PORCINE) 40 MG/0.4 ML DISP.SYRIN SQ SCH (10:15)
[2023-02-09] MEDS: ACETAMINOPHEN 325 MG TABLET (FP) PO PRN (17:18)
[2023-02-09] MEDS: PHENobarbital 30 MG TABLET PO SCH (22:10)
[2023-02-09] MEDS: PHENYTOIN NA EXTENDED 100 MG CAPSULE (FP) PO SCH (22:10)
[2023-02-10] MEDS: LEVOTHYROXINE NA 125 MCG TABLET (FP) PO SCH (06:02)
[2023-02-10] MEDS: ENOXAPARIN NA (PORCINE) 40 MG/0.4 ML DISP.SYRIN SQ SCH (10:19)
[2023-02-10] MEDS: ASPIRIN 81 MG CHEWABLE TABLETS PO SCH (10:19)
[2023-02-10] MEDS: LISINOPRIL 5 MG TABLET PO SCH (10:19)
[2023-02-10] MEDS: FOLIC ACID 1 MG TABLET (FP) PO SCH (10:19)
[2023-02-10] MEDS: PANTOPRAZOLE SODIUM 40 MG VIAL IVPUSH SCH (10:19)
[2023-02-10] MEDS ORDERED: SODIUM CHLORIDE 1,000 ML IV STA (12:03)
[2023-02-10] MEDS: PHENobarbital 30 MG TABLET PO SCH (21:59)
[2023-02-10] MEDS: PHENYTOIN NA EXTENDED 100 MG CAPSULE (FP) PO SCH (22:00)
[2023-02-11] MEDS: LEVOTHYROXINE NA 125 MCG TABLET (FP) PO SCH (06:01)
[2023-02-11 07:48] LABS: POTASSIUM 3.9 mmol/L (3.5-5.1)
[2023-02-11 07:52] LABS: CALCIUM 8.5 mg/dL (8.5-10.1)
[2023-02-11 07:53] LABS: BLOOD UREA NITROGEN 13.7 mg/dL (7-18)
[2023-02-11 07:56] LABS: CREATININE 0.6 mg/dL (0.55-1.3)
[2023-02-11] MEDS: FOLIC ACID 1 MG TABLET (FP) PO SCH (10:08)
[2023-02-11] MEDS: ASPIRIN 81 MG CHEWABLE TABLETS PO SCH (10:08)
[2023-02-11] MEDS: PANTOPRAZOLE 40 MG TABLET PO SCH (10:09)
[2023-02-11] MEDS: ENOXAPARIN NA (PORCINE) 40 MG/0.4 ML DISP.SYRIN SQ SCH (10:09)
[2023-02-11] MEDS: FLUDROCORTISONE ACETATE 0.1 MG TABLET (FP) PO SCH (13:30)
[2023-02-11] MEDS: PHENobarbital 30 MG TABLET PO SCH (22:11)
[2023-02-11] MEDS: PHENYTOIN NA EXTENDED 100 MG CAPSULE (FP) PO SCH (22:12)
[2023-02-12] MEDS: LEVOTHYROXINE NA 125 MCG TABLET (FP) PO SCH (06:51)
[2023-02-12 08:52] LABS: CALCIUM 8.8 mg/dL (8.5-10.1)
[2023-02-12 08:56] LABS: CREATININE 0.6 mg/dL (0.55-1.3)
[2023-02-12] MEDS: ASPIRIN 81 MG CHEWABLE TABLETS PO SCH (09:43)
[2023-02-12] MEDS: FLUDROCORTISONE ACETATE 0.1 MG TABLET (FP) PO SCH (09:44)
[2023-02-12] MEDS: FOLIC ACID 1 MG TABLET (FP) PO SCH (09:44)
[2023-02-12] MEDS: ENOXAPARIN NA (PORCINE) 40 MG/0.4 ML DISP.SYRIN SQ SCH (09:44)
[2023-02-12] MEDS: PANTOPRAZOLE 40 MG TABLET PO SCH (09:44)
[2023-02-12] MEDS: PHENYTOIN NA EXTENDED 100 MG CAPSULE (FP) PO SCH (22:33)
[2023-02-12] MEDS: PHENobarbital 30 MG TABLET PO SCH (22:33)
[2023-02-13] MEDS: LEVOTHYROXINE NA 125 MCG TABLET (FP) PO SCH (06:22)
[2023-02-13 08:14] LABS: BASO % 0.6 % (0-2.0); EOS % 2.9 % (0-4.5); HEMATOCRIT 39.5 % (32.4-45.2); HEMOGLOBIN 13.2 GM/dL (10.7-15.3); LYMPH % 34.4 % (8-40); MCH 31.1 pg (25.7-33.7); MCHC 33.5 g/dl (32.0-36.0); MEAN CELL VOLUME 92.8 fl (80-96); MEAN PLT VOLUME 6.6 fl (7.5-11.1); MONO % 10.6 % (3.8-10.2); NEUT % 51.5 % (42.8-82.8); PLATELET COUNT 295 10^3/uL (134-434); RBC 4.26 M/mm3 (3.60-5.2); RDW 13.9 % (11.6-15.6)
[2023-02-13 08:20] LABS: INR 0.99 (0.83-1.09); PROTHROMBIN TIME (PATIENT) 11.5 SEC (9.7-13.0)
[2023-02-13 08:23] LABS: ACTIVATED PTT 25.8 SECONDS (25.2-36.5)
[2023-02-13 08:31] LABS: POTASSIUM 4.1 mmol/L (3.5-5.1)
[2023-02-13 08:36] LABS: ALBUMIN 2.4 g/dl (3.4-5.0); CALCIUM 8.3 mg/dL (8.5-10.1)
[2023-02-13 08:37] LABS: BLOOD UREA NITROGEN 21.5 mg/dL (7-18)
[2023-02-13 08:39] LABS: CREATININE 0.6 mg/dL (0.55-1.3); PHOSPHOROUS 3.8 mg/dL (2.5-4.9)
[2023-02-13 08:41] LABS: BILIRUBIN,TOTAL 0.4 mg/dL (0.2-1); TOT PROT 6.4 g/dl (6.4-8.2)
[2023-02-13] MEDS: ENOXAPARIN NA (PORCINE) 40 MG/0.4 ML DISP.SYRIN SQ SCH (10:16)
[2023-02-13] MEDS: FLUDROCORTISONE ACETATE 0.1 MG TABLET (FP) PO SCH (10:16)
[2023-02-13] MEDS: FOLIC ACID 1 MG TABLET (FP) PO SCH (10:17)
[2023-02-13] MEDS: ASPIRIN 81 MG CHEWABLE TABLETS PO SCH (10:17)
[2023-02-13] MEDS: PANTOPRAZOLE 40 MG TABLET PO SCH (10:17)
[2023-02-13] MEDS: PHENobarbital 30 MG TABLET PO SCH (21:35)
[2023-02-13] MEDS: PHENYTOIN NA EXTENDED 100 MG CAPSULE (FP) PO SCH (21:36)
[2023-02-14] MEDS: LEVOTHYROXINE NA 125 MCG TABLET (FP) PO SCH (06:02)
[2023-02-14] MEDS: ACETAMINOPHEN 325 MG TABLET (FP) PO PRN (06:21)
[2023-02-14] MEDS: ASPIRIN 81 MG CHEWABLE TABLETS PO SCH (10:44)
[2023-02-14] MEDS: ENOXAPARIN NA (PORCINE) 40 MG/0.4 ML DISP.SYRIN SQ SCH (10:44)
[2023-02-14] MEDS: FLUDROCORTISONE ACETATE 0.1 MG TABLET (FP) PO SCH (10:44)
[2023-02-14] MEDS: FOLIC ACID 1 MG TABLET (FP) PO SCH (10:44)
[2023-02-14] MEDS: PANTOPRAZOLE 40 MG TABLET PO SCH (10:44)
[2023-02-14] MEDS: PHENobarbital 30 MG TABLET PO SCH (23:15)
[2023-02-14] MEDS: PHENYTOIN NA EXTENDED 100 MG CAPSULE (FP) PO SCH (23:16)
[2023-02-15] MEDS: LEVOTHYROXINE NA 125 MCG TABLET (FP) PO SCH (06:17)
[2023-02-15] MEDS: PANTOPRAZOLE 40 MG TABLET PO SCH (10:26)
[2023-02-15] MEDS: FOLIC ACID 1 MG TABLET (FP) PO SCH (10:26)
[2023-02-15] MEDS: ASPIRIN 81 MG CHEWABLE TABLETS PO SCH (10:26)
[2023-02-15] MEDS: FLUDROCORTISONE ACETATE 0.1 MG TABLET (FP) PO SCH (10:29)
[2023-02-15] MEDS: PHENYTOIN NA EXTENDED 100 MG CAPSULE (FP) PO SCH (21:33)
[2023-02-15] MEDS: PHENobarbital 30 MG TABLET PO SCH (22:05)
[2023-02-15 22:49] VITALS: PULSE 73; RESP 18
[2023-02-16 05:58] VITALS: BP 150/71; TEMP 98.3
[2023-02-16] MEDS: LEVOTHYROXINE NA 125 MCG TABLET (FP) PO SCH (06:36)
[2023-02-16] MEDS: FLUDROCORTISONE ACETATE 0.1 MG TABLET (FP) PO SCH (09:52)
[2023-02-16] MEDS: ASPIRIN 81 MG CHEWABLE TABLETS PO SCH (09:52)
[2023-02-16] MEDS: FOLIC ACID 1 MG TABLET (FP) PO SCH (09:53)
[2023-02-16] MEDS: PANTOPRAZOLE 40 MG TABLET PO SCH (09:53)
== END 2023-02-16 11:10 | disposition home or self-care (01) | DRG 312 ==
LOC: JER 22:28 → INTOOBSV 02-08 02:53 → UNDOADMOB 02-08 02:53 → JERBED 02-08 02:53 → J7W 02-08 06:15 → JERBED 02-08 06:15 → J7W 02-08 15:25 → UNDOADMOB 02-08 15:25 → J7W 02-08 16:41 → JERBED 02-08 16:41 → OBSVTOIN 02-13 14:12
PROVIDERS: ADMIT Internal Medicine
DX: I95.1 Orthostatic hypotension (principal); G95.0 Syringomyelia and syringobulbia; E44.0 Moderate protein-calorie malnutrition; G40.909 Epilepsy, unspecified, not intractable, without status epilepticus; E03.9 Hypothyroidism, unspecified; R11.10 Vomiting, unspecified; I10 Essential (primary) hypertension; R26.81 Unsteadiness on feet; G93.89 Other specified disorders of brain; R82.71 Bacteriuria; R44.9 Unspecified symptoms and signs involving general sensations and perceptions; S00.12XA Contusion of left eyelid and periocular area, initial encounter; S00.33XA Contusion of nose, initial encounter; S00.432A Contusion of left ear, initial encounter; W06.XXXA Fall from bed, initial encounter; Y92.092 Bedroom in other non-institutional residence as the place of occurrence of the external cause; Z68.32 Body mass index [BMI] 32.0-32.9, adult
CPT/HCPCS: 36415; 70450-TC; 70486-TC; 71045-TC-FY; 72125-TC; 72170-TC-FY; 73560-TC-LT-FY; 73560-TC-RT-FY; 74176-TC; 80048; 80053; 80164; 80184; 80185; 81003; 83690; 83735; 84100; 84439; 84443; 84484; 85025; 85027; 85610; 85730; 87086; 93005; 93010; 97116-GP; 97161-GP; 99285-25; G0378

== ENCOUNTER 2023-06-13 03:39 | Emergency (ER) | payer OTHER ==
[2023-06-13 03:54] VITALS: BMI 32.3
[2023-06-13 04:38] LABS: EPI CELLS 4 /uL (0-25.1); HYALINE CASTS 1 /uL (0-3.1); PH,URINE 7.5 (5.0-8.0); URINE APPEARANCE CLEAR; URINE BACTERIA 4115 /uL (0-1359); URINE BILIRUBIN NEGATIVE (NEGATIVE); URINE COLOR YELLOW; URINE GLUCOSE (UA) NEGATIVE (NEGATIVE); URINE KETONE NEGATIVE (NEGATIVE); URINE LEUK ESTERASE 2+ (NEGATIVE); URINE NITRITE NEGATIVE (NEGATIVE); URINE PROTEIN 2+ (NEGATIVE); URINE RBC 408 /uL (0-23.9); URINE UROBILINOGEN 0.2 mg/dL (0.2-1.0); URINE WBC 539 /uL (0-25.8)
[2023-06-13] MEDS ORDERED: SULFAMETHOXAZOLE/TRIMETHOPRIM 800MG/160MG D.S. TABLET PO ONE (05:02)
[2023-06-13] MEDS ORDERED: SULFAMETHOXAZOLE/TRIMETHOPRIM 800MG/160MG D.S. TABLET ONE (05:05)
[2023-06-13 06:59] VITALS: RESP 18; TEMP 97.4
[2023-06-13 09:15] VITALS: BP 130/70; PULSE 74
== END 2023-06-13 09:25 | disposition home or self-care (01) ==
LOC: JER 03:39
PROC: 0T9B70Z Drainage of Bladder with Drainage Device, Via Natural or Artificial Opening (ICD-10-PCS; principal; 2023-06-13)
DX: N30.01 Acute cystitis with hematuria (principal)
CPT/HCPCS: 51702; 81003; 87086; 87186; 99283-25

== ENCOUNTER 2023-07-30 09:43 | Inpatient (IN) | payer OTHER ==
[2023-07-30] MEDS ORDERED: MECLIZINE HCL 12.5 MG TABLET PO ONE (10:26)
[2023-07-30] MEDS ORDERED: MECLIZINE HCL 12.5 MG TABLET ONE (10:51)
[2023-07-30 11:17] LABS: BASO % 0.5 % (0-2.0); EOS % 1.4 % (0-4.5); HEMATOCRIT 39.8 % (32.4-45.2); LYMPH % 33.8 % (8-40); MCH 30.9 pg (25.7-33.7); MCHC 32.6 g/dl (32.0-36.0); MEAN CELL VOLUME 94.6 fl (80-96); MEAN PLT VOLUME 6.8 fl (7.5-11.1); MONO % 11.5 % (3.8-10.2); NEUT % 52.8 % (42.8-82.8); PLATELET COUNT 361 10^3/uL (134-434); RBC 4.21 M/mm3 (3.60-5.2); RDW 14.2 % (11.6-15.6); WHITE BLOOD COUNT 8.2 K/mm3 (4.0-10.0)
[2023-07-30 11:33] LABS: POTASSIUM 4.2 mmol/L (3.5-5.1)
[2023-07-30 11:35] LABS: CALCIUM 8.6 mg/dL (8.5-10.1)
[2023-07-30 11:37] LABS: ALBUMIN 2.7 g/dl (3.4-5.0); BLOOD UREA NITROGEN 10.7 mg/dL (7-18); MAGNESIUM 2.1 mg/dL (1.8-2.4)
[2023-07-30 11:39] LABS: CREATININE 0.6 mg/dL (0.55-1.3)
[2023-07-30 11:41] LABS: BILIRUBIN,TOTAL 0.3 mg/dL (0.2-1); TOT PROT 6.8 g/dl (6.4-8.2)
[2023-07-30] MEDS ORDERED: ACETAMINOPHEN 1000 MG/100 ML BAG IVPB ONE (16:22)
[2023-07-30] MEDS ORDERED: ACETAMINOPHEN INJECTION 100 ML IVPB ONE (17:00)
[2023-07-30] MEDS ORDERED: PHENYTOIN NA EXTENDED 100 MG CAPSULE (FP) ONE (21:47)
[2023-07-30] MEDS ORDERED: HEPARIN NA (PORCINE) 5,000 UNITS/ML 1ML VIAL ONE (21:48)
[2023-07-30] MEDS ORDERED: PHENobarbital 30 MG TABLET ONE ×2 (21:49)
[2023-07-30] MEDS ORDERED: ATORVASTATIN CA 20 MG TABLET (FP) ONE (21:49)
[2023-07-30] MEDS ORDERED: PHENobarbital 30 MG TABLET PO SCH (22:00)
[2023-07-30] MEDS: PHENYTOIN NA EXTENDED 100 MG CAPSULE (FP) PO SCH (22:45)
[2023-07-30] MEDS: PHENobarbital 30 MG TABLET PO SCH (22:46)
[2023-07-30] MEDS: HEPARIN NA (PORCINE) 5,000 UNITS/ML 1ML VIAL SQ SCH (22:46)
[2023-07-30] MEDS: ATORVASTATIN CA 20 MG TABLET (FP) PO SCH (22:47)
[2023-07-31] MEDS: LEVOTHYROXINE NA 100 MCG TABLET (FP) PO SCH (06:10)
[2023-07-31] MEDS ORDERED: LEVOTHYROXINE NA 125 MCG TABLET (FP) PO SCH (07:00)
[2023-07-31] MEDS: CYANOCOBALAMIN (VITAMIN B-12) 100 MCG TABLET PO SCH (09:19)
[2023-07-31] MEDS: LOSARTAN POTASSIUM 25 MG TABLET PO SCH (09:19)
[2023-07-31] MEDS: FOLIC ACID 1 MG TABLET (FP) PO SCH (09:19)
[2023-07-31] MEDS: HEPARIN NA (PORCINE) 5,000 UNITS/ML 1ML VIAL SQ SCH ×2 (09:19→22:10)
[2023-07-31] MEDS: PHENobarbital 30 MG TABLET PO SCH ×2 (09:19→22:09)
[2023-07-31] MEDS: LISINOPRIL 5 MG TABLET PO SCH (09:19)
[2023-07-31 09:24] LABS: BASO % 0.5 % (0-2.0); EOS % 1.7 % (0-4.5); HEMATOCRIT 39.8 % (32.4-45.2); HEMOGLOBIN 13.2 GM/dL (10.7-15.3); LYMPH % 50.6 % (8-40); MCH 31.3 pg (25.7-33.7); MCHC 33.2 g/dl (32.0-36.0); MEAN CELL VOLUME 94.1 fl (80-96); MONO % 11.3 % (3.8-10.2); NEUT % 35.9 % (42.8-82.8); PLATELET COUNT 375 10^3/uL (134-434); RBC 4.23 M/mm3 (3.60-5.2); RDW 14.5 % (11.6-15.6); WHITE BLOOD COUNT 7.3 K/mm3 (4.0-10.0)
[2023-07-31 09:51] LABS: POTASSIUM 4.4 mmol/L (3.5-5.1)
[2023-07-31 09:52] LABS: CALCIUM 8.3 mg/dL (8.5-10.1)
[2023-07-31 09:56] LABS: CREATININE 0.7 mg/dL (0.55-1.3)
[2023-07-31] MEDS ORDERED: PHENYTOIN NA EXTENDED 100 MG CAPSULE (FP) PO SCH (10:00)
[2023-07-31] MEDS ORDERED: LIDOCAINE 4% PATCH TP ONE (10:24)
[2023-07-31] MEDS ORDERED: ACETAMINOPHEN 1000 MG/100 ML BAG IVPB PRN (10:24)
[2023-07-31] MEDS ORDERED: MECLIZINE HCL 25 MG TABLET (FP) PO ONE ×2 (10:47→13:15)
[2023-07-31] MEDS: PHENYTOIN NA EXTENDED 100 MG CAPSULE (FP) PO SCH ×2 (13:23→22:41)
[2023-07-31 17:15] LABS: PH,URINE 7.5 (5.0-8.0); URINE APPEARANCE CLEAR; URINE BILIRUBIN NEGATIVE (NEGATIVE); URINE COLOR YELLOW; URINE GLUCOSE (UA) NEGATIVE (NEGATIVE); URINE KETONE NEGATIVE (NEGATIVE); URINE LEUK ESTERASE NEGATIVE (NEGATIVE); URINE NITRITE NEGATIVE (NEGATIVE); URINE PROTEIN NEGATIVE (NEGATIVE); URINE UROBILINOGEN 0.2 mg/dL (0.2-1.0)
[2023-07-31] MEDS ORDERED: LIDOCAINE PATCH REMOVAL MC ONE (22:00)
[2023-07-31] MEDS: ATORVASTATIN CA 20 MG TABLET (FP) PO SCH (22:12)
[2023-07-31] MEDS: DIVALPROEX NA *ER* EXTEND REL 250 MG TABLET.SA PO SCH (22:13)
[2023-08-01] MEDS: LEVOTHYROXINE NA 100 MCG TABLET (FP) PO SCH (06:30)
[2023-08-01 09:29] LABS: BASO % 0.5 % (0-2.0); EOS % 1.8 % (0-4.5); HEMATOCRIT 38.9 % (32.4-45.2); HEMOGLOBIN 12.7 GM/dL (10.7-15.3); LYMPH % 49.9 % (8-40); MCH 30.6 pg (25.7-33.7); MCHC 32.7 g/dl (32.0-36.0); MEAN CELL VOLUME 93.6 fl (80-96); MEAN PLT VOLUME 6.9 fl (7.5-11.1); MONO % 11.2 % (3.8-10.2); NEUT % 36.6 % (42.8-82.8); PLATELET COUNT 392 10^3/uL (134-434); RBC 4.15 M/mm3 (3.60-5.2); RDW 14.2 % (11.6-15.6); WHITE BLOOD COUNT 5.8 K/mm3 (4.0-10.0)
[2023-08-01 09:43] LABS: POTASSIUM 4.1 mmol/L (3.5-5.1)
[2023-08-01 09:45] LABS: CALCIUM 8.2 mg/dL (8.5-10.1)
[2023-08-01 09:46] LABS: ALBUMIN 2.3 g/dl (3.4-5.0); BLOOD UREA NITROGEN 17.6 mg/dL (7-18)
[2023-08-01 09:49] LABS: CREATININE 0.6 mg/dL (0.55-1.3); PHOSPHOROUS 3.8 mg/dL (2.5-4.9)
[2023-08-01 09:50] LABS: BILIRUBIN,TOTAL 0.3 mg/dL (0.2-1); TOT PROT 6.1 g/dl (6.4-8.2)
[2023-08-01] MEDS: CYANOCOBALAMIN (VITAMIN B-12) 100 MCG TABLET PO SCH (09:50)
[2023-08-01] MEDS: FOLIC ACID 1 MG TABLET (FP) PO SCH (09:50)
[2023-08-01] MEDS: PHENobarbital 30 MG TABLET PO SCH ×2 (09:50→22:07)
[2023-08-01] MEDS: DIVALPROEX NA *ER* EXTEND REL 250 MG TABLET.SA PO SCH ×2 (09:50→22:07)
[2023-08-01] MEDS: LOSARTAN POTASSIUM 25 MG TABLET PO SCH ×2 (09:51→10:01)
[2023-08-01] MEDS: LISINOPRIL 5 MG TABLET PO SCH ×2 (09:51→10:01)
[2023-08-01] MEDS: HEPARIN NA (PORCINE) 5,000 UNITS/ML 1ML VIAL SQ SCH ×2 (09:51→22:08)
[2023-08-01] MEDS: PHENYTOIN NA EXTENDED 100 MG CAPSULE (FP) PO SCH (09:51)
[2023-08-01] MEDS ORDERED: PHENYTOIN NA EXTENDED 100 MG CAPSULE (FP) PO SCH (22:00)
[2023-08-01] MEDS: ATORVASTATIN CA 20 MG TABLET (FP) PO SCH (22:08)
[2023-08-02] MEDS: LEVOTHYROXINE NA 100 MCG TABLET (FP) PO SCH (06:13)
[2023-08-02 07:20] LABS: BASO % 0.9 % (0-2.0); EOS % 1.6 % (0-4.5); HEMATOCRIT 39.7 % (32.4-45.2); MCH 31.1 pg (25.7-33.7); MCHC 32.8 g/dl (32.0-36.0); MEAN CELL VOLUME 94.8 fl (80-96); MEAN PLT VOLUME 6.7 fl (7.5-11.1); MONO % 12.9 % (3.8-10.2); NEUT % 36.6 % (42.8-82.8); PLATELET COUNT 344 10^3/uL (134-434); RBC 4.19 M/mm3 (3.60-5.2); RDW 13.9 % (11.6-15.6); WHITE BLOOD COUNT 5.7 K/mm3 (4.0-10.0)
[2023-08-02 07:42] LABS: POTASSIUM 4.1 mmol/L (3.5-5.1)
[2023-08-02 07:47] LABS: CALCIUM 8.6 mg/dL (8.5-10.1)
[2023-08-02 07:48] LABS: ALBUMIN 2.5 g/dl (3.4-5.0); BLOOD UREA NITROGEN 19.9 mg/dL (7-18); MAGNESIUM 2.1 mg/dL (1.8-2.4)
[2023-08-02 07:51] LABS: CREATININE 0.7 mg/dL (0.55-1.3); PHOSPHOROUS 3.8 mg/dL (2.5-4.9)
[2023-08-02 07:52] LABS: BILIRUBIN,TOTAL 0.5 mg/dL (0.2-1)
[2023-08-02 07:53] LABS: TOT PROT 6.4 g/dl (6.4-8.2)
[2023-08-02] MEDS: LISINOPRIL 5 MG TABLET PO SCH (10:18)
[2023-08-02] MEDS: PHENobarbital 30 MG TABLET PO SCH ×2 (10:18→22:00)
[2023-08-02] MEDS: DIVALPROEX NA *ER* EXTEND REL 250 MG TABLET.SA PO SCH ×2 (10:18→21:59)
[2023-08-02] MEDS: FOLIC ACID 1 MG TABLET (FP) PO SCH (10:18)
[2023-08-02] MEDS: HEPARIN NA (PORCINE) 5,000 UNITS/ML 1ML VIAL SQ SCH (10:19)
[2023-08-02] MEDS: LOSARTAN POTASSIUM 25 MG TABLET PO SCH (10:19)
[2023-08-02] MEDS: PHENYTOIN NA EXTENDED 100 MG CAPSULE (FP) PO SCH ×2 (10:21→21:59)
[2023-08-02] MEDS: CYANOCOBALAMIN (VITAMIN B-12) 100 MCG TABLET PO SCH (10:23)
[2023-08-02] MEDS: ATORVASTATIN CA 20 MG TABLET (FP) PO SCH (22:00)
[2023-08-03] MEDS: LEVOTHYROXINE NA 100 MCG TABLET (FP) PO SCH (06:51)
[2023-08-03 08:24] LABS: BASO % 0.8 % (0-2.0); HEMOGLOBIN 12.9 GM/dL (10.7-15.3); LYMPH % 53.7 % (8-40); MCH 30.9 pg (25.7-33.7); MCHC 33.1 g/dl (32.0-36.0); MEAN CELL VOLUME 93.3 fl (80-96); MONO % 11.5 % (3.8-10.2); PLATELET COUNT 384 10^3/uL (134-434); RBC 4.18 M/mm3 (3.60-5.2); RDW 14.3 % (11.6-15.6); WHITE BLOOD COUNT 5.4 K/mm3 (4.0-10.0)
[2023-08-03] MEDS ORDERED: LACTULOSE 20 GM/30 ML UDC (FOR ORAL USE ONLY) PO ONE ×2 (08:25→10:45)
[2023-08-03 08:44] LABS: POTASSIUM 4.1 mmol/L (3.5-5.1)
[2023-08-03 08:53] LABS: ALBUMIN 2.4 g/dl (3.4-5.0); BLOOD UREA NITROGEN 17.7 mg/dL (7-18)
[2023-08-03 08:56] LABS: CREATININE 0.5 mg/dL (0.55-1.3)
[2023-08-03 08:57] LABS: BILIRUBIN,TOTAL 0.6 mg/dL (0.2-1); TOT PROT 6.2 g/dl (6.4-8.2)
[2023-08-03] MEDS: LISINOPRIL 5 MG TABLET PO SCH (10:28)
[2023-08-03] MEDS: PHENobarbital 30 MG TABLET PO SCH ×2 (10:28→21:50)
[2023-08-03] MEDS: DIVALPROEX NA *ER* EXTEND REL 250 MG TABLET.SA PO SCH ×2 (10:28→21:51)
[2023-08-03] MEDS: FOLIC ACID 1 MG TABLET (FP) PO SCH (10:28)
[2023-08-03] MEDS: LOSARTAN POTASSIUM 25 MG TABLET PO SCH (10:28)
[2023-08-03] MEDS: CYANOCOBALAMIN (VITAMIN B-12) 100 MCG TABLET PO SCH (10:29)
[2023-08-03] MEDS: PHENYTOIN NA EXTENDED 100 MG CAPSULE (FP) PO SCH ×2 (10:29→21:44)
[2023-08-03 10:57] LABS: INR 1.08 (0.83-1.09); PROTHROMBIN TIME (PATIENT) 12.5 SEC (9.7-13.0)
[2023-08-03 20:10] LABS: HIV INTERPRETATION NEGATIVE (NEGATIVE)
[2023-08-03] MEDS: ATORVASTATIN CA 20 MG TABLET (FP) PO SCH (21:51)
[2023-08-04] MEDS: LEVOTHYROXINE NA 100 MCG TABLET (FP) PO SCH (05:59)
[2023-08-04] MEDS: DIVALPROEX NA *ER* EXTEND REL 250 MG TABLET.SA PO SCH ×2 (09:11→21:13)
[2023-08-04] MEDS: LOSARTAN POTASSIUM 25 MG TABLET PO SCH (09:11)
[2023-08-04] MEDS: LISINOPRIL 5 MG TABLET PO SCH (09:11)
[2023-08-04] MEDS: FOLIC ACID 1 MG TABLET (FP) PO SCH (09:11)
[2023-08-04] MEDS: PHENobarbital 30 MG TABLET PO SCH ×2 (09:11→21:15)
[2023-08-04 09:12] LABS: BASO % 0.4 % (0-2.0); EOS % 0.8 % (0-4.5); HEMATOCRIT 41.3 % (32.4-45.2); HEMOGLOBIN 13.6 GM/dL (10.7-15.3); LYMPH % 21.9 % (8-40); MCH 31.3 pg (25.7-33.7); MEAN CELL VOLUME 94.7 fl (80-96); MEAN PLT VOLUME 7.2 fl (7.5-11.1); MONO % 8.5 % (3.8-10.2); NEUT % 68.4 % (42.8-82.8); PLATELET COUNT 393 10^3/uL (134-434); RBC 4.36 M/mm3 (3.60-5.2); RDW 14.3 % (11.6-15.6); WHITE BLOOD COUNT 10.9 K/mm3 (4.0-10.0)
[2023-08-04] MEDS: PHENYTOIN NA EXTENDED 100 MG CAPSULE (FP) PO SCH ×2 (09:15→21:15)
[2023-08-04] MEDS ORDERED: FENTANYL CITRATE/PF 50 MCG/ML VIAL ONE (10:02)
[2023-08-04] MEDS ORDERED: FENTANYL CITRATE/PF 50 MCG/ML VIAL IVPUSH ONE (10:05)
[2023-08-04 11:34] LABS: CSF APPEARANCE CLEAR (CLEAR); CSF COLOR COLORLESS (COLORLESS); CSF WBC 1 mm3 (0-5)
[2023-08-04] MEDS: CYANOCOBALAMIN (VITAMIN B-12) 100 MCG TABLET PO SCH (12:44)
[2023-08-04 20:06] LABS: BF GLUCOSE (CSF ONLY) 49 mg/dL (40-70)
[2023-08-04] MEDS: ATORVASTATIN CA 20 MG TABLET (FP) PO SCH (21:14)
[2023-08-05] MEDS: LEVOTHYROXINE NA 100 MCG TABLET (FP) PO SCH (06:18)
[2023-08-05 08:14] LABS: BASO % 0.7 % (0-2.0); EOS % 0.4 % (0-4.5); HEMATOCRIT 41.7 % (32.4-45.2); HEMOGLOBIN 13.5 GM/dL (10.7-15.3); LYMPH % 19.5 % (8-40); MCH 30.8 pg (25.7-33.7); MCHC 32.3 g/dl (32.0-36.0); MEAN CELL VOLUME 95.4 fl (80-96); MEAN PLT VOLUME 6.9 fl (7.5-11.1); MONO % 9.3 % (3.8-10.2); NEUT % 70.1 % (42.8-82.8); PLATELET COUNT 332 10^3/uL (134-434); RBC 4.37 M/mm3 (3.60-5.2); RDW 14.2 % (11.6-15.6); WHITE BLOOD COUNT 11.4 K/mm3 (4.0-10.0)
[2023-08-05 08:33] LABS: POTASSIUM 4.1 mmol/L (3.5-5.1)
[2023-08-05 08:37] LABS: CALCIUM 8.2 mg/dL (8.5-10.1)
[2023-08-05 08:38] LABS: ALBUMIN 2.5 g/dl (3.4-5.0); MAGNESIUM 2.2 mg/dL (1.8-2.4)
[2023-08-05 08:41] LABS: CREATININE 0.6 mg/dL (0.55-1.3); PHOSPHOROUS 4.3 mg/dL (2.5-4.9)
[2023-08-05 08:42] LABS: TOT PROT 6.5 g/dl (6.4-8.2)
[2023-08-05 08:52] LABS: BILIRUBIN,TOTAL 0.3 mg/dL (0.2-1)
[2023-08-05 09:56] LABS: ARTERIAL BLD GAS O2 SATURATION 96.9 % (95-98); ARTERIAL BLOOD GAS BASE EXCESS -4.4 mmol/L (-2-2); ARTERIAL BLOOD GAS PO2 88.8 mmHg (80-100); ARTERIAL BLOOD GAS pH 7.398 (7.350-7.450)
[2023-08-05 09:57] LABS: ALLENS TEST POSITIVE
[2023-08-05] MEDS: DIVALPROEX NA *ER* EXTEND REL 250 MG TABLET.SA PO SCH (10:26)
[2023-08-05] MEDS: LOSARTAN POTASSIUM 25 MG TABLET PO SCH (10:26)
[2023-08-05] MEDS: FOLIC ACID 1 MG TABLET (FP) PO SCH (10:26)
[2023-08-05] MEDS: PHENobarbital 30 MG TABLET PO SCH ×2 (10:26→23:58)
[2023-08-05] MEDS: LISINOPRIL 5 MG TABLET PO SCH (10:26)
[2023-08-05] MEDS: PHENYTOIN NA EXTENDED 100 MG CAPSULE (FP) PO SCH (10:27)
[2023-08-05] MEDS: CYANOCOBALAMIN (VITAMIN B-12) 100 MCG TABLET PO SCH (10:27)
[2023-08-05] MEDS ORDERED: levETIRAcetam 500 MG/5 ML INJECTION VIAL IVPB ONE (11:00)
[2023-08-05] MEDS ORDERED: ACETAMINOPHEN 325 MG TABLET (FP) PO PRN (12:30)
[2023-08-05] MEDS ORDERED: LEVOTHYROXINE NA 100 MCG TABLET (FP) GT SCH (16:51)
[2023-08-05] MEDS ORDERED: levETIRAcetam 500 MG TABLET (FP) PO SCH (22:00)
[2023-08-05] MEDS: DEXTROSE 5%-0.45% SALINE 1,000 ML IV SCH (22:03)
[2023-08-05] MEDS: HEPARIN NA (PORCINE) 5,000 UNITS/ML 1ML VIAL SQ SCH (22:06)
[2023-08-05] MEDS: levETIRAcetam 500 MG/5 ML INJECTION VIAL IVPB SCH (22:06)
[2023-08-06] MEDS: PHENobarbital 30 MG TABLET GT SCH ×3 (00:16→21:44)
[2023-08-06] MEDS: ATORVASTATIN CA 20 MG TABLET (FP) GT SCH ×2 (00:19→21:43)
[2023-08-06] MEDS: PHENYTOIN 100 MG/4 ML U-D CUP NGT SCH ×3 (00:20→21:45)
[2023-08-06] MEDS: VALPROATE SODIUM 250 MG/5 ML UNIT DOSE CUP NGT SCH ×3 (00:21→21:45)
[2023-08-06 09:18] LABS: HEMATOCRIT 38.2 % (32.4-45.2); HEMOGLOBIN 12.5 GM/dL (10.7-15.3); MCHC 32.7 g/dl (32.0-36.0); MEAN CELL VOLUME 94.9 fl (80-96); MEAN PLT VOLUME 7.1 fl (7.5-11.1); PLATELET COUNT 366 10^3/uL (134-434); RBC 4.03 M/mm3 (3.60-5.2); RDW 14.2 % (11.6-15.6); WHITE BLOOD COUNT 11.4 K/mm3 (4.0-10.0)
[2023-08-06 09:22] LABS: POTASSIUM 3.8 mmol/L (3.5-5.1)
[2023-08-06 09:26] LABS: CALCIUM 8.4 mg/dL (8.5-10.1)
[2023-08-06 09:27] LABS: ALBUMIN 2.4 g/dl (3.4-5.0); BLOOD UREA NITROGEN 28.5 mg/dL (7-18)
[2023-08-06 09:30] LABS: CREATININE 0.7 mg/dL (0.55-1.3)
[2023-08-06 09:32] LABS: BILIRUBIN,TOTAL 0.4 mg/dL (0.2-1); TOT PROT 6.5 g/dl (6.4-8.2)
[2023-08-06] MEDS: HEPARIN NA (PORCINE) 5,000 UNITS/ML 1ML VIAL SQ SCH ×2 (09:56→21:44)
[2023-08-06] MEDS: levETIRAcetam 500 MG/5 ML INJECTION VIAL IVPB SCH ×2 (09:56→21:45)
[2023-08-06] MEDS: FOLIC ACID 5 MG/1 ML SQ SCH (09:57)
[2023-08-06] MEDS: CYANOCOBALAMIN (VITAMIN B-12) 100 MCG TABLET GT SCH (09:58)
[2023-08-06] MEDS ORDERED: PIPERACILLIN/TAZOB 3.375 GM 3.375 GM in DEXTROSE 5%-WATER - 50 ML IVPB SCH (10:00)
[2023-08-06] MEDS: PIPERACILLIN/TAZOB 3.375 GM 3.375 GM in DEXTROSE 5%-WATER - 50 ML IVPB SCH ×2 (10:57→17:43)
[2023-08-06 14:21] LABS: EPI CELLS >36 /uL (0-25.1); HYALINE CASTS 3 /uL (0-3.1); PH,URINE 5.5 (5.0-8.0); URINE APPEARANCE TURBID; URINE BACTERIA >9,000 /uL (0-1359); URINE BILIRUBIN NEGATIVE (NEGATIVE); URINE COLOR YELLOW; URINE GLUCOSE (UA) NEGATIVE (NEGATIVE); URINE KETONE 1+ (NEGATIVE); URINE LEUK ESTERASE 2+ (NEGATIVE); URINE NITRITE NEGATIVE (NEGATIVE); URINE PROTEIN 2+ (NEGATIVE); URINE RBC 29 /uL (0-23.9); URINE UROBILINOGEN 0.2 mg/dL (0.2-1.0); URINE WBC 1159 /uL (0-25.8)
[2023-08-06 14:23] LABS: YEAST NEGATIVE (NEGATIVE)
[2023-08-06] MEDS: DEXTROSE 5%-0.45% SALINE 1,000 ML IV SCH (17:44)
[2023-08-06 17:53] LABS: ALLENS TEST POSITIVE; ARTERIAL BLOOD GAS BASE EXCESS 0.8 mmol/L (-2-2); ARTERIAL BLOOD GAS pH 7.395 (7.350-7.450)
[2023-08-07] MEDS: PIPERACILLIN/TAZOB 3.375 GM 3.375 GM in DEXTROSE 5%-WATER - 50 ML IVPB SCH ×2 (01:24→15:36)
[2023-08-07] MEDS ORDERED: ALBUTEROL SO4 2.5/IPRATROPIUM 0.5 INH SOL 3 ML VIAL.NEB. NEB ONE (02:39)
[2023-08-07 03:55] LABS: INR 1.32 (0.83-1.09); PROTHROMBIN TIME (PATIENT) 15.3 SEC (9.7-13.0)
[2023-08-07 03:58] LABS: ACTIVATED PTT 30.9 SECONDS (25.2-36.5)
[2023-08-07 04:02] LABS: POTASSIUM 3.5 mmol/L (3.5-5.1)
[2023-08-07 04:04] LABS: CALCIUM 8.2 mg/dL (8.5-10.1)
[2023-08-07 04:05] LABS: ALBUMIN 2.2 g/dl (3.4-5.0); BLOOD UREA NITROGEN 22.7 mg/dL (7-18)
[2023-08-07 04:08] LABS: CREATININE 0.6 mg/dL (0.55-1.3)
[2023-08-07 04:10] LABS: BILIRUBIN,TOTAL 0.2 mg/dL (0.2-1); TOT PROT 6.3 g/dl (6.4-8.2)
[2023-08-07 04:42] LABS: HEMATOCRIT 39.7 % (32.4-45.2); HEMOGLOBIN 12.7 GM/dL (10.7-15.3); MCH 30.3 pg (25.7-33.7); MCHC 31.9 g/dl (32.0-36.0); MEAN CELL VOLUME 94.9 fl (80-96); MEAN PLT VOLUME 7.1 fl (7.5-11.1); PLATELET COUNT 341 10^3/uL (134-434); RBC 4.19 M/mm3 (3.60-5.2); RDW 14.8 % (11.6-15.6); WHITE BLOOD COUNT 8.8 K/mm3 (4.0-10.0)
[2023-08-07] MEDS: LEVOTHYROXINE SODIUM 100 MCG 5 ML VIAL IVPUSH SCH ×2 (06:53→10:49)
[2023-08-07] MEDS ORDERED: RAPID SEQUENCE INTUBATION KIT NR ONE (09:32)
[2023-08-07] MEDS ORDERED: VANCOMYCIN/WATER 1250 MG 1,250 MG/250 ML BAG IVPB ONE (10:05)
[2023-08-07] MEDS: VALPROATE SODIUM 250 MG/5 ML UNIT DOSE CUP NGT SCH ×2 (10:47→22:26)
[2023-08-07] MEDS: PANTOPRAZOLE SODIUM 40 MG VIAL IVPUSH SCH (10:48)
[2023-08-07] MEDS: levETIRAcetam 500 MG/5 ML INJECTION VIAL IVPB SCH ×2 (10:48→22:26)
[2023-08-07] MEDS: PHENYTOIN 100 MG/4 ML U-D CUP NGT SCH ×2 (10:48→22:28)
[2023-08-07] MEDS: ENOXAPARIN NA (PORCINE) 40 MG/0.4 ML DISP.SYRIN SQ SCH (10:48)
[2023-08-07] MEDS: CYANOCOBALAMIN (VITAMIN B-12) 100 MCG TABLET GT SCH (10:50)
[2023-08-07] MEDS: PHENobarbital 30 MG TABLET GT SCH ×2 (10:52→22:26)
[2023-08-07] MEDS: AMINO ACIDS/PROTEIN HYDROLYS 30 ML LIQUID.PKT PEG SCH (17:37)
[2023-08-07] MEDS: FOLIC ACID 5 MG/1 ML SQ SCH (17:37)
[2023-08-07] MEDS: DEXTROSE 5%-0.45% SALINE 1,000 ML IV SCH (17:37)
[2023-08-07] MEDS ORDERED: DEXTROSE 5%-0.45% SALINE 1,000 ML IV SCH (18:55)
[2023-08-07] MEDS: ATORVASTATIN CA 20 MG TABLET (FP) GT SCH (22:26)
[2023-08-08 01:10] LABS: EPI CELLS 12 /uL (0-25.1); HYALINE CASTS 2 /uL (0-3.1); PH,URINE 5.5 (5.0-8.0); URINE APPEARANCE TURBID; URINE BACTERIA 4456 /uL (0-1359); URINE BILIRUBIN NEGATIVE (NEGATIVE); URINE COLOR YELLOW; URINE GLUCOSE (UA) NEGATIVE (NEGATIVE); URINE KETONE TRACE (NEGATIVE); URINE LEUK ESTERASE 1+ (NEGATIVE); URINE NITRITE NEGATIVE (NEGATIVE); URINE PROTEIN 1+ (NEGATIVE); URINE UROBILINOGEN 0.2 mg/dL (0.2-1.0); URINE WBC 483 /uL (0-25.8)
[2023-08-08] MEDS ORDERED: PROPOFOL 1,000,000 MCG/100 ML VIAL ONE (01:55)
[2023-08-08] MEDS: PIPERACILLIN/TAZOB 3.375 GM 3.375 GM in DEXTROSE 5%-WATER - 50 ML IVPB SCH ×3 (01:58→17:31)
[2023-08-08 03:50] LABS: URINE RBC 19.9 /uL (0-23.9); YEAST NONE SEEN (NEGATIVE)
[2023-08-08 06:30] LABS: ARTERIAL BLD GAS O2 SATURATION 98.8 % (95-98); ARTERIAL BLOOD GAS BASE EXCESS 0.3 mmol/L (-2-2); ARTERIAL BLOOD GAS pH 7.444 (7.350-7.450)
[2023-08-08 06:45] LABS: ALLENS TEST POSITIVE; VENT MODE A/C; VENT RATE 12
[2023-08-08] MEDS: PROPOFOL 1,000,000 MCG/100 ML VIAL IVPB SCH (07:00)
[2023-08-08] MEDS: levETIRAcetam 500 MG/5 ML INJECTION VIAL IVPB SCH ×2 (09:32→21:35)
[2023-08-08] MEDS: ENOXAPARIN NA (PORCINE) 40 MG/0.4 ML DISP.SYRIN SQ SCH (09:33)
[2023-08-08] MEDS: AMINO ACIDS/PROTEIN HYDROLYS 30 ML LIQUID.PKT PEG SCH ×3 (09:33→16:29)
[2023-08-08] MEDS: LEVOTHYROXINE SODIUM 100 MCG 5 ML VIAL IVPUSH SCH (09:33)
[2023-08-08] MEDS: PANTOPRAZOLE SODIUM 40 MG VIAL IVPUSH SCH (09:34)
[2023-08-08] MEDS: MULTIVIT-MINERALS ORAL LIQUID PEG SCH (09:34)
[2023-08-08] MEDS: PHENobarbital 30 MG TABLET GT SCH ×2 (09:34→21:38)
[2023-08-08] MEDS: ASCORBIC ACID 250 MG TABLET (FP) PEG SCH (09:34)
[2023-08-08] MEDS: CYANOCOBALAMIN (VITAMIN B-12) 100 MCG TABLET GT SCH (09:34)
[2023-08-08] MEDS: PHENYTOIN 100 MG/4 ML U-D CUP NGT SCH ×2 (09:35→21:35)
[2023-08-08] MEDS: VALPROATE SODIUM 250 MG/5 ML UNIT DOSE CUP NGT SCH ×2 (09:35→21:34)
[2023-08-08 12:06] LABS: HEMATOCRIT 40.1 % (32.4-45.2); MCH 30.7 pg (25.7-33.7); MCHC 32.4 g/dl (32.0-36.0); MEAN CELL VOLUME 94.7 fl (80-96); MEAN PLT VOLUME 7.7 fl (7.5-11.1); PLATELET COUNT 340 10^3/uL (134-434); RBC 4.24 M/mm3 (3.60-5.2); RDW 14.6 % (11.6-15.6); WHITE BLOOD COUNT 9.1 K/mm3 (4.0-10.0)
[2023-08-08 12:36] LABS: POTASSIUM 3.5 mmol/L (3.5-5.1)
[2023-08-08 12:38] LABS: CALCIUM 7.8 mg/dL (8.5-10.1)
[2023-08-08 12:39] LABS: ALBUMIN 1.8 g/dl (3.4-5.0); BLOOD UREA NITROGEN 16.1 mg/dL (7-18)
[2023-08-08 12:42] LABS: CREATININE 0.6 mg/dL (0.55-1.3); PHOSPHOROUS 2.3 mg/dL (2.5-4.9)
[2023-08-08 12:43] LABS: BILIRUBIN,TOTAL 0.2 mg/dL (0.2-1); TOT PROT 5.8 g/dl (6.4-8.2)
[2023-08-08] MEDS: FOLIC ACID 5 MG/1 ML SQ SCH (14:50)
[2023-08-08] MEDS: ATORVASTATIN CA 20 MG TABLET (FP) GT SCH (21:35)
[2023-08-09] MEDS: PIPERACILLIN/TAZOB 3.375 GM 3.375 GM in DEXTROSE 5%-WATER - 50 ML IVPB SCH ×3 (02:46→17:36)
[2023-08-09] MEDS: PROPOFOL 1,000,000 MCG/100 ML VIAL IVPB SCH (02:47)
[2023-08-09 08:08] LABS: BASO % 0.5 % (0-2.0); EOS % 0.8 % (0-4.5); HEMOGLOBIN 11.5 GM/dL (10.7-15.3); MEAN CELL VOLUME 93.9 fl (80-96); MEAN PLT VOLUME 7.7 fl (7.5-11.1); MONO % 11.4 % (3.8-10.2); NEUT % 62.3 % (42.8-82.8); PLATELET COUNT 336 10^3/uL (134-434); POTASSIUM 3.2 mmol/L (3.5-5.1); RBC 3.73 M/mm3 (3.60-5.2); WHITE BLOOD COUNT 8.3 K/mm3 (4.0-10.0)
[2023-08-09 08:12] LABS: CALCIUM 7.7 mg/dL (8.5-10.1)
[2023-08-09 08:13] LABS: ALBUMIN 1.6 g/dl (3.4-5.0); BLOOD UREA NITROGEN 17.8 mg/dL (7-18); MAGNESIUM 1.9 mg/dL (1.8-2.4)
[2023-08-09 08:16] LABS: BILIRUBIN,TOTAL 0.2 mg/dL (0.2-1); CREATININE 0.6 mg/dL (0.55-1.3); PHOSPHOROUS 2.5 mg/dL (2.5-4.9); TOT PROT 5.3 g/dl (6.4-8.2)
[2023-08-09] MEDS: VALPROATE SODIUM 250 MG/5 ML UNIT DOSE CUP NGT SCH ×2 (09:10→21:48)
[2023-08-09] MEDS: ENOXAPARIN NA (PORCINE) 40 MG/0.4 ML DISP.SYRIN SQ SCH (09:10)
[2023-08-09] MEDS: levETIRAcetam 500 MG/5 ML INJECTION VIAL IVPB SCH ×2 (09:11→21:48)
[2023-08-09] MEDS: PHENYTOIN 100 MG/4 ML U-D CUP NGT SCH ×2 (09:11→22:20)
[2023-08-09] MEDS: AMINO ACIDS/PROTEIN HYDROLYS 30 ML LIQUID.PKT PEG SCH ×3 (09:11→17:36)
[2023-08-09] MEDS: PANTOPRAZOLE SODIUM 40 MG VIAL IVPUSH SCH (09:11)
[2023-08-09] MEDS: ASCORBIC ACID 250 MG TABLET (FP) PEG SCH (09:11)
[2023-08-09] MEDS: LEVOTHYROXINE SODIUM 100 MCG 5 ML VIAL IVPUSH SCH (09:11)
[2023-08-09] MEDS: MULTIVIT-MINERALS ORAL LIQUID PEG SCH (09:11)
[2023-08-09] MEDS: PHENobarbital 30 MG TABLET GT SCH (09:12)
[2023-08-09] MEDS: CYANOCOBALAMIN (VITAMIN B-12) 100 MCG TABLET GT SCH (09:22)
[2023-08-09] MEDS ORDERED: POTASSIUM PHOSPHATE 30 MM in DEXTROSE 5%-WATER - 250 ML IVPB ONE (10:00)
[2023-08-09] MEDS: FOLIC ACID 5 MG/1 ML SQ SCH (10:29)
[2023-08-09] MEDS: LACTULOSE 20 GM/30 ML UDC (FOR ORAL USE ONLY) PO SCH ×3 (14:30→21:48)
[2023-08-09 16:08] LABS: ATYPICAL pANCA <1:20 titer (Neg:<1:20); C-ANCA <1:20 titer (Neg:<1:20)
[2023-08-09] MEDS: ATORVASTATIN CA 20 MG TABLET (FP) GT SCH (21:48)
[2023-08-09] MEDS: DEXTROSE 5%-0.45% SALINE 1,000 ML IV SCH (22:20)
[2023-08-10] MEDS: PROPOFOL 1,000,000 MCG/100 ML VIAL IVPB SCH (03:41)
[2023-08-10] MEDS: PIPERACILLIN/TAZOB 3.375 GM 3.375 GM in DEXTROSE 5%-WATER - 50 ML IVPB SCH ×2 (03:41→09:31)
[2023-08-10 07:26] LABS: BASO % 0.7 % (0-2.0); EOS % 1.3 % (0-4.5); HEMATOCRIT 36.1 % (32.4-45.2); HEMOGLOBIN 12.2 GM/dL (10.7-15.3); LYMPH % 34.6 % (8-40); MCH 31.5 pg (25.7-33.7); MCHC 33.8 g/dl (32.0-36.0); MEAN PLT VOLUME 7.4 fl (7.5-11.1); MONO % 12.4 % (3.8-10.2); PLATELET COUNT 346 10^3/uL (134-434); RBC 3.88 M/mm3 (3.60-5.2); RDW 14.4 % (11.6-15.6)
[2023-08-10 07:49] LABS: POTASSIUM 3.4 mmol/L (3.5-5.1)
[2023-08-10 08:18] LABS: ALBUMIN 1.6 g/dl (3.4-5.0); BLOOD UREA NITROGEN 14.1 mg/dL (7-18)
[2023-08-10] MEDS ORDERED: POTASSIUM CHLORIDE ORAL LIQUID 20 MEQ/15 ML PO ONE (08:18)
[2023-08-10 08:19] LABS: CALCIUM 7.6 mg/dL (8.5-10.1); MAGNESIUM 1.9 mg/dL (1.8-2.4)
[2023-08-10 08:23] LABS: PHOSPHOROUS 3.3 mg/dL (2.5-4.9); TOT PROT 5.5 g/dl (6.4-8.2)
[2023-08-10 08:25] LABS: CREATININE 0.6 mg/dL (0.55-1.3)
[2023-08-10 08:27] LABS: BILIRUBIN,TOTAL 0.1 mg/dL (0.2-1)
[2023-08-10] MEDS: CYANOCOBALAMIN (VITAMIN B-12) 100 MCG TABLET GT SCH (09:31)
[2023-08-10] MEDS: PANTOPRAZOLE SODIUM 40 MG VIAL IVPUSH SCH (09:31)
[2023-08-10] MEDS: LEVOTHYROXINE SODIUM 100 MCG 5 ML VIAL IVPUSH SCH (09:31)
[2023-08-10] MEDS: LACTULOSE 20 GM/30 ML UDC (FOR ORAL USE ONLY) PO SCH ×4 (09:31→23:02)
[2023-08-10] MEDS: MULTIVIT-MINERALS ORAL LIQUID PEG SCH (09:31)
[2023-08-10] MEDS: VALPROATE SODIUM 250 MG/5 ML UNIT DOSE CUP NGT SCH (09:31)
[2023-08-10] MEDS: levETIRAcetam 500 MG/5 ML INJECTION VIAL IVPB SCH ×2 (09:31→23:02)
[2023-08-10] MEDS: KCL 10 MEQ IVPB 10 MEQ/100 ML INFUS.BAG IVPB SCH ×3 (09:31→12:30)
[2023-08-10] MEDS: AMINO ACIDS/PROTEIN HYDROLYS 30 ML LIQUID.PKT PEG SCH ×3 (09:31→16:50)
[2023-08-10] MEDS: ASCORBIC ACID 250 MG TABLET (FP) PEG SCH (09:31)
[2023-08-10] MEDS: PHENYTOIN 100 MG/4 ML U-D CUP NGT SCH (09:32)
[2023-08-10] MEDS: ENOXAPARIN NA (PORCINE) 40 MG/0.4 ML DISP.SYRIN SQ SCH (09:32)
[2023-08-10] MEDS: DEXTROSE 5%-0.45% SALINE 1,000 ML IV SCH ×2 (16:50→23:16)
[2023-08-10] MEDS: FOLIC ACID 5 MG/1 ML SQ SCH (16:50)
[2023-08-10] MEDS: ATORVASTATIN CA 20 MG TABLET (FP) GT SCH (23:02)
[2023-08-11 05:58] LABS: ARTERIAL BLD GAS O2 SATURATION 99.1 % (95-98); ARTERIAL BLOOD GAS BASE EXCESS 0.9 mmol/L (-2-2); ARTERIAL BLOOD GAS PO2 157.5 mmHg (80-100); ARTERIAL BLOOD GAS pH 7.469 (7.350-7.450)
[2023-08-11 06:11] LABS: VENT MODE A/C; VENT RATE 12
[2023-08-11 07:25] LABS: BASO % 0.6 % (0-2.0); EOS % 1.5 % (0-4.5); HEMATOCRIT 36.4 % (32.4-45.2); HEMOGLOBIN 12.1 GM/dL (10.7-15.3); LYMPH % 28.8 % (8-40); MCH 31.5 pg (25.7-33.7); MCHC 33.4 g/dl (32.0-36.0); MEAN CELL VOLUME 94.3 fl (80-96); MEAN PLT VOLUME 7.1 fl (7.5-11.1); MONO % 11.6 % (3.8-10.2); NEUT % 57.5 % (42.8-82.8); PLATELET COUNT 375 10^3/uL (134-434); RBC 3.86 M/mm3 (3.60-5.2); RDW 14.2 % (11.6-15.6); WHITE BLOOD COUNT 9.4 K/mm3 (4.0-10.0)
[2023-08-11 07:42] LABS: POTASSIUM 3.9 mmol/L (3.5-5.1)
[2023-08-11 07:48] LABS: CALCIUM 7.8 mg/dL (8.5-10.1)
[2023-08-11 07:49] LABS: ALBUMIN 1.6 g/dl (3.4-5.0); BLOOD UREA NITROGEN 8.7 mg/dL (7-18); MAGNESIUM 1.9 mg/dL (1.8-2.4)
[2023-08-11 07:52] LABS: CREATININE 0.6 mg/dL (0.55-1.3); PHOSPHOROUS 2.2 mg/dL (2.5-4.9)
[2023-08-11 07:53] LABS: BILIRUBIN,TOTAL 0.2 mg/dL (0.2-1); TOT PROT 5.6 g/dl (6.4-8.2)
[2023-08-11] MEDS ORDERED: LACTATED RINGERS SOLUTION 1000 ML INFUS.BAG IV ONE (08:15)
[2023-08-11] MEDS ORDERED: NAPH,MB-DB/K PH,MBDB POWDER PACKET PO ONE (08:45)
[2023-08-11] MEDS: LEVOTHYROXINE SODIUM 100 MCG 5 ML VIAL IVPUSH SCH (09:18)
[2023-08-11] MEDS: ENOXAPARIN NA (PORCINE) 40 MG/0.4 ML DISP.SYRIN SQ SCH (09:18)
[2023-08-11] MEDS: ACETAMINOPHEN 650 MG/20.3 ML ORAL SOLUTION (CUPS) GT PRN ×2 (09:18→21:29)
[2023-08-11] MEDS: ASCORBIC ACID 250 MG TABLET (FP) PEG SCH (09:18)
[2023-08-11] MEDS: LACTULOSE 20 GM/30 ML UDC (FOR ORAL USE ONLY) PO SCH ×4 (09:18→21:30)
[2023-08-11] MEDS: AMINO ACIDS/PROTEIN HYDROLYS 30 ML LIQUID.PKT PEG SCH ×3 (09:18→17:42)
[2023-08-11] MEDS: CYANOCOBALAMIN (VITAMIN B-12) 100 MCG TABLET GT SCH (09:18)
[2023-08-11] MEDS: MULTIVIT-MINERALS ORAL LIQUID PEG SCH (09:19)
[2023-08-11] MEDS: PANTOPRAZOLE SODIUM 40 MG VIAL IVPUSH SCH (09:19)
[2023-08-11] MEDS: levETIRAcetam 500 MG/5 ML INJECTION VIAL IVPB SCH ×2 (09:19→21:30)
[2023-08-11] MEDS: FOLIC ACID 5 MG/1 ML SQ SCH (09:37)
[2023-08-11] MEDS: DEXTROSE 5%-0.45% SALINE 1,000 ML IV SCH (20:00)
[2023-08-11] MEDS: ATORVASTATIN CA 20 MG TABLET (FP) GT SCH (21:30)
[2023-08-12 06:37] LABS: ARTERIAL BLD GAS O2 SATURATION 98.9 % (95-98); ARTERIAL BLOOD GAS BASE EXCESS -0.7 mmol/L (-2-2); ARTERIAL BLOOD GAS PO2 144.7 mmHg (80-100); ARTERIAL BLOOD GAS pH 7.429 (7.350-7.450)
[2023-08-12 06:53] LABS: ALLENS TEST POSITIVE; VENT MODE A/C; VENT RATE 12
[2023-08-12 07:20] LABS: HEMOGLOBIN 11.8 GM/dL (10.7-15.3); MCH 31.2 pg (25.7-33.7); MCHC 32.8 g/dl (32.0-36.0); PLATELET COUNT 349 10^3/uL (134-434); RBC 3.79 M/mm3 (3.60-5.2); RDW 14.3 % (11.6-15.6); WHITE BLOOD COUNT 9.2 K/mm3 (4.0-10.0)
[2023-08-12 07:34] LABS: ALBUMIN 1.6 g/dl (3.4-5.0)
[2023-08-12 07:36] LABS: BLOOD UREA NITROGEN 12.7 mg/dL (7-18); PHOSPHOROUS 2.8 mg/dL (2.5-4.9)
[2023-08-12 07:37] LABS: CALCIUM 7.8 mg/dL (8.5-10.1)
[2023-08-12 07:38] LABS: BILIRUBIN,TOTAL 0.1 mg/dL (0.2-1); TOT PROT 5.4 g/dl (6.4-8.2)
[2023-08-12 07:40] LABS: CREATININE 0.7 mg/dL (0.55-1.3)
[2023-08-12 09:44] LABS: ANISOCYTOSIS 0; HELMET CELLS 0; HOWELL-JOLLY BODIES 0; MACROCYTOSIS 0; OVALOCYTE 0; ROULEAU 0; SICKELED CELLS 0; TARGET CELLS 0; TEAR DROP CELLS 0; TOXIC GRANULATION 0
[2023-08-12] MEDS: levETIRAcetam 500 MG/5 ML INJECTION VIAL IVPB SCH ×2 (11:17→21:13)
[2023-08-12] MEDS: MULTIVIT-MINERALS ORAL LIQUID PEG SCH (11:17)
[2023-08-12] MEDS: ASCORBIC ACID 250 MG TABLET (FP) PEG SCH (11:18)
[2023-08-12] MEDS: AMINO ACIDS/PROTEIN HYDROLYS 30 ML LIQUID.PKT PEG SCH ×3 (11:18→17:41)
[2023-08-12] MEDS: PANTOPRAZOLE SODIUM 40 MG VIAL IVPUSH SCH (11:18)
[2023-08-12] MEDS: LEVOTHYROXINE SODIUM 100 MCG 5 ML VIAL IVPUSH SCH (11:18)
[2023-08-12] MEDS: ENOXAPARIN NA (PORCINE) 40 MG/0.4 ML DISP.SYRIN SQ SCH (11:18)
[2023-08-12] MEDS: CYANOCOBALAMIN (VITAMIN B-12) 100 MCG TABLET GT SCH (11:36)
[2023-08-12] MEDS: FOLIC ACID 5 MG/1 ML SQ SCH (13:43)
[2023-08-12] MEDS: ATORVASTATIN CA 20 MG TABLET (FP) GT SCH (21:14)
[2023-08-13 07:34] LABS: BASO % 0.6 % (0-2.0); HEMATOCRIT 36.2 % (32.4-45.2); HEMOGLOBIN 11.9 GM/dL (10.7-15.3); LYMPH % 28.9 % (8-40); MCH 31.2 pg (25.7-33.7); MCHC 32.9 g/dl (32.0-36.0); MEAN CELL VOLUME 94.9 fl (80-96); MEAN PLT VOLUME 6.8 fl (7.5-11.1); MONO % 13.6 % (3.8-10.2); NEUT % 54.9 % (42.8-82.8); PLATELET COUNT 411 10^3/uL (134-434); RBC 3.81 M/mm3 (3.60-5.2); RDW 14.2 % (11.6-15.6); WHITE BLOOD COUNT 10.2 K/mm3 (4.0-10.0)
[2023-08-13 07:46] LABS: POTASSIUM 3.7 mmol/L (3.5-5.1)
[2023-08-13 07:54] LABS: BLOOD UREA NITROGEN 11.8 mg/dL (7-18); CALCIUM 8.3 mg/dL (8.5-10.1)
[2023-08-13 07:55] LABS: ALBUMIN 1.8 g/dl (3.4-5.0)
[2023-08-13 07:58] LABS: CREATININE 0.4 mg/dL (0.55-1.3)
[2023-08-13 07:59] LABS: TOT PROT 5.9 g/dl (6.4-8.2)
[2023-08-13 08:16] LABS: BILIRUBIN,TOTAL 0.3 mg/dL (0.2-1)
[2023-08-13] MEDS: levETIRAcetam 500 MG/5 ML INJECTION VIAL IVPB SCH ×2 (09:56→21:12)
[2023-08-13] MEDS: AMINO ACIDS/PROTEIN HYDROLYS 30 ML LIQUID.PKT PEG SCH ×3 (09:56→17:08)
[2023-08-13] MEDS: ASCORBIC ACID 250 MG TABLET (FP) PEG SCH (09:56)
[2023-08-13] MEDS: CYANOCOBALAMIN (VITAMIN B-12) 100 MCG TABLET GT SCH (09:56)
[2023-08-13] MEDS: MULTIVIT-MINERALS ORAL LIQUID PEG SCH (09:56)
[2023-08-13] MEDS: LEVOTHYROXINE SODIUM 100 MCG 5 ML VIAL IVPUSH SCH (09:56)
[2023-08-13] MEDS: PANTOPRAZOLE SODIUM 40 MG VIAL IVPUSH SCH (09:56)
[2023-08-13] MEDS: ENOXAPARIN NA (PORCINE) 40 MG/0.4 ML DISP.SYRIN SQ SCH (09:57)
[2023-08-13] MEDS: FOLIC ACID 5 MG/1 ML SQ SCH (10:18)
[2023-08-13] MEDS: ATORVASTATIN CA 20 MG TABLET (FP) GT SCH (21:12)
[2023-08-14] MEDS: AMINO ACIDS/PROTEIN HYDROLYS 30 ML LIQUID.PKT PEG SCH ×3 (08:00→18:22)
[2023-08-14] MEDS: FOLIC ACID 5 MG/1 ML SQ SCH (10:34)
[2023-08-14] MEDS: MULTIVIT-MINERALS ORAL LIQUID PEG SCH (10:34)
[2023-08-14] MEDS: levETIRAcetam 500 MG/5 ML INJECTION VIAL IVPB SCH ×2 (10:34→21:13)
[2023-08-14] MEDS: ASCORBIC ACID 250 MG TABLET (FP) PEG SCH (10:35)
[2023-08-14] MEDS: CYANOCOBALAMIN (VITAMIN B-12) 100 MCG TABLET GT SCH (10:35)
[2023-08-14] MEDS: LEVOTHYROXINE SODIUM 100 MCG 5 ML VIAL IVPUSH SCH (10:35)
[2023-08-14] MEDS: PANTOPRAZOLE SODIUM 40 MG VIAL IVPUSH SCH (10:35)
[2023-08-14] MEDS: ENOXAPARIN NA (PORCINE) 40 MG/0.4 ML DISP.SYRIN SQ SCH (10:35)
[2023-08-14] MEDS: ATORVASTATIN CA 20 MG TABLET (FP) GT SCH (21:13)
[2023-08-15 06:37] LABS: BASO % 0.7 % (0-2.0); EOS % 1.4 % (0-4.5); HEMATOCRIT 35.4 % (32.4-45.2); HEMOGLOBIN 11.5 GM/dL (10.7-15.3); LYMPH % 18.4 % (8-40); MCH 30.8 pg (25.7-33.7); MCHC 32.4 g/dl (32.0-36.0); MEAN CELL VOLUME 95.2 fl (80-96); MEAN PLT VOLUME 6.3 fl (7.5-11.1); MONO % 13.4 % (3.8-10.2); NEUT % 66.1 % (42.8-82.8); PLATELET COUNT 499 10^3/uL (134-434); RBC 3.72 M/mm3 (3.60-5.2); RDW 13.8 % (11.6-15.6); WHITE BLOOD COUNT 11.1 K/mm3 (4.0-10.0)
[2023-08-15 07:06] LABS: POTASSIUM 3.6 mmol/L (3.5-5.1)
[2023-08-15 07:13] LABS: ALBUMIN 1.6 g/dl (3.4-5.0); BLOOD UREA NITROGEN 11.1 mg/dL (7-18); CALCIUM 8.6 mg/dL (8.5-10.1)
[2023-08-15 07:17] LABS: CREATININE 0.4 mg/dL (0.55-1.3)
[2023-08-15 07:18] LABS: BILIRUBIN,TOTAL 0.1 mg/dL (0.2-1); TOT PROT 5.8 g/dl (6.4-8.2)
[2023-08-15] MEDS: AMINO ACIDS/PROTEIN HYDROLYS 30 ML LIQUID.PKT PEG SCH ×3 (09:00→18:25)
[2023-08-15] MEDS: PANTOPRAZOLE SODIUM 40 MG VIAL IVPUSH SCH (10:13)
[2023-08-15] MEDS: CYANOCOBALAMIN (VITAMIN B-12) 100 MCG TABLET GT SCH (10:14)
[2023-08-15] MEDS: ASCORBIC ACID 250 MG TABLET (FP) PEG SCH (10:14)
[2023-08-15] MEDS: LEVOTHYROXINE SODIUM 100 MCG 5 ML VIAL IVPUSH SCH (10:14)
[2023-08-15] MEDS: MULTIVIT-MINERALS ORAL LIQUID PEG SCH (10:14)
[2023-08-15] MEDS: levETIRAcetam 500 MG/5 ML INJECTION VIAL IVPB SCH ×2 (10:15→21:18)
[2023-08-15] MEDS: FOLIC ACID 5 MG/1 ML SQ SCH (11:30)
[2023-08-15] MEDS: ATORVASTATIN CA 20 MG TABLET (FP) GT SCH (21:18)
[2023-08-16] MEDS: AMINO ACIDS/PROTEIN HYDROLYS 30 ML LIQUID.PKT PEG SCH ×3 (07:55→16:46)
[2023-08-16] MEDS: ASCORBIC ACID 250 MG TABLET (FP) PEG SCH (09:13)
[2023-08-16] MEDS: PANTOPRAZOLE SODIUM 40 MG VIAL IVPUSH SCH (09:13)
[2023-08-16] MEDS: levETIRAcetam 500 MG/5 ML INJECTION VIAL IVPB SCH ×2 (09:13→21:21)
[2023-08-16] MEDS: MULTIVIT-MINERALS ORAL LIQUID PEG SCH (09:13)
[2023-08-16] MEDS: ENOXAPARIN NA (PORCINE) 40 MG/0.4 ML DISP.SYRIN SQ SCH (09:13)
[2023-08-16] MEDS: CYANOCOBALAMIN (VITAMIN B-12) 100 MCG TABLET GT SCH (09:13)
[2023-08-16] MEDS: LEVOTHYROXINE SODIUM 100 MCG 5 ML VIAL IVPUSH SCH (09:14)
[2023-08-16] MEDS: FOLIC ACID 5 MG/1 ML SQ SCH (10:38)
[2023-08-16 11:57] LABS: MAGNESIUM 1.9 mg/dL (1.8-2.4)
[2023-08-16 12:02] LABS: PHOSPHOROUS 2.7 mg/dL (2.5-4.9)
[2023-08-16 17:03] LABS: EPI CELLS >36 /uL (0-25.1); HYALINE CASTS 1 /uL (0-3.1); PH,URINE 6.5 (5.0-8.0); URINE APPEARANCE CLOUDY; URINE BACTERIA 2794 /uL (0-1359); URINE BILIRUBIN NEGATIVE (NEGATIVE); URINE COLOR DK YELLOW; URINE GLUCOSE (UA) NEGATIVE (NEGATIVE); URINE KETONE TRACE (NEGATIVE); URINE LEUK ESTERASE TRACE (NEGATIVE); URINE NITRITE NEGATIVE (NEGATIVE); URINE PROTEIN 1+ (NEGATIVE); URINE RBC 6 /uL (0-23.9); URINE WBC 28 /uL (0-25.8)
[2023-08-16 19:07] LABS: URINE CRYSTALS MODERATE /hpf
[2023-08-16] MEDS: ATORVASTATIN CA 20 MG TABLET (FP) GT SCH (21:21)
[2023-08-17] MEDS ORDERED: ACETAMINOPHEN 650 MG/20.3 ML ORAL SOLUTION (CUPS) GT PRN (01:12)
[2023-08-17 08:25] LABS: HEMATOCRIT 31.9 % (32.4-45.2); HEMOGLOBIN 10.6 GM/dL (10.7-15.3); MCHC 33.1 g/dl (32.0-36.0); MEAN CELL VOLUME 93.7 fl (80-96); MEAN PLT VOLUME 6.2 fl (7.5-11.1); PLATELET COUNT 550 10^3/uL (134-434); RBC 3.41 M/mm3 (3.60-5.2); WHITE BLOOD COUNT 7.7 K/mm3 (4.0-10.0)
[2023-08-17 08:26] LABS: BASO % 0.6 % (0-2.0); EOS % 2.4 % (0-4.5); HEMATOCRIT 32.2 % (32.4-45.2); HEMOGLOBIN 10.6 GM/dL (10.7-15.3); LYMPH % 24.9 % (8-40); MCH 31.1 pg (25.7-33.7); MCHC 32.8 g/dl (32.0-36.0); MEAN CELL VOLUME 94.8 fl (80-96); MEAN PLT VOLUME 6.3 fl (7.5-11.1); MONO % 12.3 % (3.8-10.2); NEUT % 59.8 % (42.8-82.8); PLATELET COUNT 528 10^3/uL (134-434); RDW 13.7 % (11.6-15.6); WHITE BLOOD COUNT 7.6 K/mm3 (4.0-10.0)
[2023-08-17] MEDS: AMINO ACIDS/PROTEIN HYDROLYS 30 ML LIQUID.PKT PEG SCH ×3 (08:33→17:10)
[2023-08-17 08:48] LABS: POTASSIUM 3.8 mmol/L (3.5-5.1)
[2023-08-17] MEDS: LEVOTHYROXINE SODIUM 100 MCG 5 ML VIAL IVPUSH SCH (10:33)
[2023-08-17] MEDS: ASCORBIC ACID 250 MG TABLET (FP) PEG SCH (10:33)
[2023-08-17] MEDS: CYANOCOBALAMIN (VITAMIN B-12) 100 MCG TABLET GT SCH (10:33)
[2023-08-17] MEDS: ENOXAPARIN NA (PORCINE) 40 MG/0.4 ML DISP.SYRIN SQ SCH (10:33)
[2023-08-17] MEDS: PANTOPRAZOLE SODIUM 40 MG VIAL IVPUSH SCH (10:33)
[2023-08-17] MEDS: levETIRAcetam 500 MG/5 ML INJECTION VIAL IVPB SCH ×2 (10:33→22:25)
[2023-08-17 13:01] LABS: ALBUMIN 1.6 g/dl (3.4-5.0); BLOOD UREA NITROGEN 14.4 mg/dL (7-18); CALCIUM 8.2 mg/dL (8.5-10.1)
[2023-08-17 13:02] LABS: MAGNESIUM 1.9 mg/dL (1.8-2.4)
[2023-08-17 13:04] LABS: CREATININE 0.4 mg/dL (0.55-1.3); PHOSPHOROUS 2.4 mg/dL (2.5-4.9)
[2023-08-17 13:05] LABS: BILIRUBIN,TOTAL 0.3 mg/dL (0.2-1); TOT PROT 5.6 g/dl (6.4-8.2)
[2023-08-17] MEDS: FOLIC ACID 5 MG/1 ML SQ SCH (14:00)
[2023-08-17] MEDS: MULTIVIT-MINERALS ORAL LIQUID PEG SCH (14:01)
[2023-08-17] MEDS ORDERED: POTASSIUM PHOSPHATE 30 MM in SODIUM CHLORIDE 500 ML IVPB ONE (15:00)
[2023-08-17] MEDS ORDERED: ATORVASTATIN CA 20 MG TABLET (FP) GT SCH (22:00)
[2023-08-18] MEDS: AMINO ACIDS/PROTEIN HYDROLYS 30 ML LIQUID.PKT PEG SCH ×3 (09:58→21:27)
[2023-08-18] MEDS: ENOXAPARIN NA (PORCINE) 40 MG/0.4 ML DISP.SYRIN SQ SCH (09:58)
[2023-08-18] MEDS: MULTIVIT-MINERALS ORAL LIQUID PEG SCH (09:59)
[2023-08-18] MEDS: PANTOPRAZOLE SODIUM 40 MG VIAL IVPUSH SCH (09:59)
[2023-08-18] MEDS: CYANOCOBALAMIN (VITAMIN B-12) 100 MCG TABLET GT SCH (09:59)
[2023-08-18] MEDS: levETIRAcetam 500 MG/5 ML INJECTION VIAL IVPB SCH ×2 (09:59→21:25)
[2023-08-18] MEDS: LEVOTHYROXINE SODIUM 100 MCG 5 ML VIAL IVPUSH SCH (09:59)
[2023-08-18] MEDS: ASCORBIC ACID 250 MG TABLET (FP) PEG SCH (09:59)
[2023-08-18 11:04] LABS: BASO % 0.8 % (0-2.0); HEMATOCRIT 30.9 % (32.4-45.2); HEMOGLOBIN 10.2 GM/dL (10.7-15.3); LYMPH % 23.9 % (8-40); MCH 31.4 pg (25.7-33.7); MCHC 33.1 g/dl (32.0-36.0); MEAN CELL VOLUME 95.1 fl (80-96); MEAN PLT VOLUME 6.3 fl (7.5-11.1); MONO % 10.9 % (3.8-10.2); NEUT % 62.4 % (42.8-82.8); PLATELET COUNT 546 10^3/uL (134-434); RBC 3.25 M/mm3 (3.60-5.2); RDW 13.9 % (11.6-15.6); WHITE BLOOD COUNT 10.1 K/mm3 (4.0-10.0)
[2023-08-18 11:19] LABS: POTASSIUM 4.1 mmol/L (3.5-5.1)
[2023-08-18 11:23] LABS: CALCIUM 7.8 mg/dL (8.5-10.1)
[2023-08-18 11:25] LABS: ALBUMIN 1.4 g/dl (3.4-5.0); BLOOD UREA NITROGEN 10.8 mg/dL (7-18); MAGNESIUM 1.6 mg/dL (1.8-2.4)
[2023-08-18 11:27] LABS: CREATININE 0.3 mg/dL (0.55-1.3); PHOSPHOROUS 2.5 mg/dL (2.5-4.9)
[2023-08-18 11:28] LABS: TOT PROT 5.2 g/dl (6.4-8.2)
[2023-08-18 11:29] LABS: BILIRUBIN,TOTAL 0.1 mg/dL (0.2-1)
[2023-08-18] MEDS: FOLIC ACID 5 MG/1 ML SQ SCH (12:08)
[2023-08-18] MEDS ORDERED: MAGNESIUM 2GM/50ML STERILE WATER IVPB IVPB ONE (14:45)
[2023-08-19] MEDS: ENOXAPARIN NA (PORCINE) 40 MG/0.4 ML DISP.SYRIN SQ SCH (10:25)
[2023-08-19] MEDS: ASCORBIC ACID 250 MG TABLET (FP) PEG SCH (10:25)
[2023-08-19] MEDS: CYANOCOBALAMIN (VITAMIN B-12) 100 MCG TABLET GT SCH (10:25)
[2023-08-19] MEDS: levETIRAcetam 500 MG/5 ML INJECTION VIAL IVPB SCH ×2 (10:25→21:51)
[2023-08-19] MEDS: PANTOPRAZOLE SODIUM 40 MG VIAL IVPUSH SCH (10:25)
[2023-08-19] MEDS: AMINO ACIDS/PROTEIN HYDROLYS 30 ML LIQUID.PKT PEG SCH ×3 (10:25→17:22)
[2023-08-19] MEDS: MULTIVIT-MINERALS ORAL LIQUID PEG SCH (10:25)
[2023-08-19] MEDS: LEVOTHYROXINE SODIUM 100 MCG 5 ML VIAL IVPUSH SCH (10:25)
[2023-08-19 11:05] LABS: BASO % 0.6 % (0-2.0); EOS % 1.6 % (0-4.5); HEMATOCRIT 32.5 % (32.4-45.2); HEMOGLOBIN 10.7 GM/dL (10.7-15.3); LYMPH % 16.7 % (8-40); MCHC 32.9 g/dl (32.0-36.0); MEAN CELL VOLUME 94.4 fl (80-96); MEAN PLT VOLUME 6.1 fl (7.5-11.1); MONO % 9.1 % (3.8-10.2); PLATELET COUNT 584 10^3/uL (134-434); RBC 3.44 M/mm3 (3.60-5.2); WHITE BLOOD COUNT 13.6 K/mm3 (4.0-10.0)
[2023-08-19] MEDS: FOLIC ACID 5 MG/1 ML SQ SCH (11:19)
[2023-08-19 11:33] LABS: ALBUMIN 1.6 g/dl (3.4-5.0); BILIRUBIN,TOTAL 0.1 mg/dL (0.2-1); BLOOD UREA NITROGEN 10.9 mg/dL (7-18); CALCIUM 8.3 mg/dL (8.5-10.1); CREATININE 0.4 mg/dL (0.55-1.3); MAGNESIUM 2.1 mg/dL (1.8-2.4); PHOSPHOROUS 2.8 mg/dL (2.5-4.9); POTASSIUM 4.3 mmol/L (3.5-5.1); TOT PROT 5.9 g/dl (6.4-8.2)
[2023-08-19 17:37] LABS: PH,URINE 8.5 (5.0-8.0); URINE APPEARANCE CLOUDY; URINE BILIRUBIN NEGATIVE (NEGATIVE); URINE COLOR YELLOW; URINE GLUCOSE (UA) NEGATIVE (NEGATIVE); URINE KETONE NEGATIVE (NEGATIVE); URINE LEUK ESTERASE NEGATIVE (NEGATIVE); URINE NITRITE NEGATIVE (NEGATIVE); URINE PROTEIN NEGATIVE (NEGATIVE); URINE UROBILINOGEN 0.2 mg/dL (0.2-1.0)
[2023-08-20 09:42] LABS: BASO % 0.6 % (0-2.0); EOS % 1.4 % (0-4.5); HEMATOCRIT 34.9 % (32.4-45.2); HEMOGLOBIN 11.5 GM/dL (10.7-15.3); LYMPH % 15.8 % (8-40); MCH 30.8 pg (25.7-33.7); MCHC 32.9 g/dl (32.0-36.0); MEAN CELL VOLUME 93.8 fl (80-96); MEAN PLT VOLUME 6.7 fl (7.5-11.1); MONO % 7.1 % (3.8-10.2); NEUT % 75.1 % (42.8-82.8); PLATELET COUNT 605 10^3/uL (134-434); RBC 3.72 M/mm3 (3.60-5.2); RDW 13.9 % (11.6-15.6); WHITE BLOOD COUNT 14.3 K/mm3 (4.0-10.0)
[2023-08-20] MEDS: AMINO ACIDS/PROTEIN HYDROLYS 30 ML LIQUID.PKT PEG SCH ×3 (09:58→17:19)
[2023-08-20] MEDS: levETIRAcetam 500 MG/5 ML INJECTION VIAL IVPB SCH ×2 (09:58→22:03)
[2023-08-20] MEDS: ENOXAPARIN NA (PORCINE) 40 MG/0.4 ML DISP.SYRIN SQ SCH (09:58)
[2023-08-20] MEDS: LEVOTHYROXINE SODIUM 100 MCG 5 ML VIAL IVPUSH SCH (09:58)
[2023-08-20] MEDS: ASCORBIC ACID 250 MG TABLET (FP) PEG SCH (09:59)
[2023-08-20] MEDS: CYANOCOBALAMIN (VITAMIN B-12) 100 MCG TABLET GT SCH (09:59)
[2023-08-20] MEDS: PANTOPRAZOLE SODIUM 40 MG VIAL IVPUSH SCH (09:59)
[2023-08-20] MEDS: FOLIC ACID 5 MG/1 ML SQ SCH (10:14)
[2023-08-20] MEDS: MULTIVIT-MINERALS ORAL LIQUID PEG SCH (10:14)
[2023-08-20 11:45] LABS: CHLORIDE 103 mmol/L (98-107); POTASSIUM 4.6 mmol/L (3.5-5.1); SODIUM 138 mmol/L (136-145)
[2023-08-20 11:47] LABS: CALCIUM 8.4 mg/dL (8.5-10.1)
[2023-08-20 11:48] LABS: ANION GAP 4 mmol/L (4-13); CO2 30 mmol/L (21-32); GLUCOSE,RANDOM 109 mg/dL (74-106); MAGNESIUM 1.9 mg/dL (1.8-2.4)
[2023-08-20 11:50] LABS: ALBUMIN 1.7 g/dl (3.4-5.0); BLOOD UREA NITROGEN 12.3 mg/dL (7-18)
[2023-08-20 11:51] LABS: CREATININE 0.4 mg/dL (0.55-1.3); PHOSPHOROUS 3.3 mg/dL (2.5-4.9); SGOT/AST 72 U/L (15-37)
[2023-08-20 11:52] LABS: TOT PROT 6.2 g/dl (6.4-8.2)
[2023-08-20 11:53] LABS: BILIRUBIN,TOTAL < 0.1 mg/dL (0.2-1)
[2023-08-20 11:54] LABS: ALK PHOS 143 U/L (45-117)
[2023-08-20 12:02] LABS: SGPT/ALT 70 U/L (13-61)
[2023-08-20] MEDS ORDERED: IBUPROFEN 400 MG TABLET (FP) PO PRN (18:45)
[2023-08-21] MEDS: AMINO ACIDS/PROTEIN HYDROLYS 30 ML LIQUID.PKT PEG SCH ×3 (08:58→17:45)
[2023-08-21] MEDS: PANTOPRAZOLE SODIUM 40 MG VIAL IVPUSH SCH (09:00)
[2023-08-21] MEDS: LEVOTHYROXINE SODIUM 100 MCG 5 ML VIAL IVPUSH SCH (09:00)
[2023-08-21] MEDS: ENOXAPARIN NA (PORCINE) 40 MG/0.4 ML DISP.SYRIN SQ SCH (09:00)
[2023-08-21] MEDS: MULTIVIT-MINERALS ORAL LIQUID PEG SCH (09:00)
[2023-08-21] MEDS: CYANOCOBALAMIN (VITAMIN B-12) 100 MCG TABLET GT SCH (09:01)
[2023-08-21] MEDS: FOLIC ACID 5 MG/1 ML SQ SCH (09:01)
[2023-08-21] MEDS: levETIRAcetam 500 MG/5 ML INJECTION VIAL IVPB SCH ×2 (09:01→21:37)
[2023-08-21] MEDS: ASCORBIC ACID 250 MG TABLET (FP) PEG SCH (09:01)
[2023-08-22] MEDS: FOLIC ACID 5 MG/1 ML SQ SCH (11:07)
[2023-08-22] MEDS: AMINO ACIDS/PROTEIN HYDROLYS 30 ML LIQUID.PKT PEG SCH ×2 (11:08→16:37)
[2023-08-22] MEDS: MULTIVIT-MINERALS ORAL LIQUID PEG SCH (11:09)
[2023-08-22] MEDS: ASCORBIC ACID 250 MG TABLET (FP) PEG SCH (11:09)
[2023-08-22] MEDS: CYANOCOBALAMIN (VITAMIN B-12) 100 MCG TABLET GT SCH (11:09)
[2023-08-22] MEDS: ENOXAPARIN NA (PORCINE) 40 MG/0.4 ML DISP.SYRIN SQ SCH (11:09)
[2023-08-22] MEDS: levETIRAcetam 500 MG/5 ML INJECTION VIAL IVPB SCH ×2 (11:09→21:47)
[2023-08-22] MEDS: PANTOPRAZOLE SODIUM 40 MG VIAL IVPUSH SCH (11:09)
[2023-08-22] MEDS: LEVOTHYROXINE SODIUM 100 MCG 5 ML VIAL IVPUSH SCH (11:10)
[2023-08-22 11:22] LABS: EOS % 1.1 % (0-4.5); HEMATOCRIT 33.8 % (32.4-45.2); LYMPH % 19.1 % (8-40); MCH 30.9 pg (25.7-33.7); MCHC 32.7 g/dl (32.0-36.0); MEAN CELL VOLUME 94.6 fl (80-96); MEAN PLT VOLUME 6.6 fl (7.5-11.1); MONO % 8.4 % (3.8-10.2); NEUT % 70.4 % (42.8-82.8); PLATELET COUNT 610 10^3/uL (134-434); RBC 3.58 M/mm3 (3.60-5.2); RDW 13.8 % (11.6-15.6); WHITE BLOOD COUNT 11.9 K/mm3 (4.0-10.0)
[2023-08-22 11:57] LABS: POTASSIUM 4.1 mmol/L (3.5-5.1)
[2023-08-22 12:44] LABS: CALCIUM 8.5 mg/dL (8.5-10.1)
[2023-08-22 12:49] LABS: BLOOD UREA NITROGEN 19.7 mg/dL (7-18)
[2023-08-22 12:50] LABS: ALBUMIN 1.6 g/dl (3.4-5.0)
[2023-08-22 12:53] LABS: CREATININE 0.4 mg/dL (0.55-1.3)
[2023-08-22 12:55] LABS: BILIRUBIN,TOTAL 0.2 mg/dL (0.2-1); TOT PROT 6.1 g/dl (6.4-8.2)
[2023-08-23] MEDS: AMINO ACIDS/PROTEIN HYDROLYS 30 ML LIQUID.PKT PEG SCH ×3 (08:39→18:21)
[2023-08-23] MEDS: ASCORBIC ACID 250 MG TABLET (FP) PEG SCH (10:14)
[2023-08-23] MEDS: CYANOCOBALAMIN (VITAMIN B-12) 100 MCG TABLET GT SCH (10:14)
[2023-08-23] MEDS: LEVOTHYROXINE SODIUM 100 MCG 5 ML VIAL IVPUSH SCH (10:14)
[2023-08-23] MEDS: MULTIVIT-MINERALS ORAL LIQUID PEG SCH (10:17)
[2023-08-23] MEDS: FOLIC ACID 5 MG/1 ML SQ SCH (10:18)
[2023-08-23] MEDS: levETIRAcetam 500 MG/5 ML INJECTION VIAL IVPB SCH ×2 (10:18→21:32)
[2023-08-23] MEDS: PANTOPRAZOLE SODIUM 40 MG VIAL IVPUSH SCH (10:21)
[2023-08-23 10:36] LABS: BASO % 0.6 % (0-2.0); EOS % 1.2 % (0-4.5); HEMATOCRIT 34.6 % (32.4-45.2); HEMOGLOBIN 11.2 GM/dL (10.7-15.3); LYMPH % 17.8 % (8-40); MCH 30.4 pg (25.7-33.7); MCHC 32.3 g/dl (32.0-36.0); MEAN CELL VOLUME 94.3 fl (80-96); MEAN PLT VOLUME 6.7 fl (7.5-11.1); MONO % 6.5 % (3.8-10.2); NEUT % 73.9 % (42.8-82.8); PLATELET COUNT 574 10^3/uL (134-434); RBC 3.67 M/mm3 (3.60-5.2); RDW 14.1 % (11.6-15.6)
[2023-08-23 10:58] LABS: POTASSIUM 4.1 mmol/L (3.5-5.1)
[2023-08-23 10:59] LABS: ALBUMIN 1.8 g/dl (3.4-5.0)
[2023-08-23 11:02] LABS: BLOOD UREA NITROGEN 20.6 mg/dL (7-18); CALCIUM 8.7 mg/dL (8.5-10.1); CREATININE 0.3 mg/dL (0.55-1.3)
[2023-08-23 11:05] LABS: BILIRUBIN,TOTAL 0.1 mg/dL (0.2-1); TOT PROT 6.1 g/dl (6.4-8.2)
[2023-08-24] MEDS: LEVOTHYROXINE NA 88 MCG TABLET (FP) PEG SCH (07:35)
[2023-08-24 10:02] LABS: BASO % 1.2 % (0-2.0); EOS % 1.6 % (0-4.5); HEMOGLOBIN 11.2 GM/dL (10.7-15.3); LYMPH % 20.7 % (8-40); MCH 31.3 pg (25.7-33.7); MCHC 33.1 g/dl (32.0-36.0); MEAN CELL VOLUME 94.8 fl (80-96); MEAN PLT VOLUME 6.6 fl (7.5-11.1); MONO % 6.4 % (3.8-10.2); NEUT % 70.1 % (42.8-82.8); PLATELET COUNT 545 10^3/uL (134-434); RBC 3.59 M/mm3 (3.60-5.2); WHITE BLOOD COUNT 10.7 K/mm3 (4.0-10.0)
[2023-08-24] MEDS: PANTOPRAZOLE SODIUM 40 MG VIAL IVPUSH SCH (10:13)
[2023-08-24] MEDS: levETIRAcetam 500 MG/5 ML INJECTION VIAL IVPB SCH ×2 (10:13→21:38)
[2023-08-24] MEDS: AMINO ACIDS/PROTEIN HYDROLYS 30 ML LIQUID.PKT PEG SCH ×3 (10:13→17:48)
[2023-08-24] MEDS: MULTIVIT-MINERALS ORAL LIQUID PEG SCH (10:14)
[2023-08-24] MEDS: ASCORBIC ACID 250 MG TABLET (FP) PEG SCH (10:14)
[2023-08-24] MEDS: CYANOCOBALAMIN (VITAMIN B-12) 100 MCG TABLET GT SCH (10:14)
[2023-08-24 10:18] LABS: ALBUMIN 1.8 g/dl (3.4-5.0); CALCIUM 8.3 mg/dL (8.5-10.1)
[2023-08-24 10:19] LABS: BLOOD UREA NITROGEN 20.5 mg/dL (7-18)
[2023-08-24 10:21] LABS: CREATININE 0.4 mg/dL (0.55-1.3)
[2023-08-24 10:23] LABS: BILIRUBIN,TOTAL 0.2 mg/dL (0.2-1); TOT PROT 6.4 g/dl (6.4-8.2)
[2023-08-24] MEDS: FOLIC ACID 5 MG/1 ML SQ SCH (10:27)
[2023-08-24] MEDS ORDERED: COLLAGENASE CLOSTRIDIUM HIST. 30 GRAMS TUBE TP SCH (15:00)
[2023-08-24] MEDS: ENOXAPARIN NA (PORCINE) 40 MG/0.4 ML DISP.SYRIN SQ SCH (17:48)
[2023-08-24 22:51] VITALS: BMI 27.8
[2023-08-25] MEDS: LEVOTHYROXINE NA 88 MCG TABLET (FP) PEG SCH (06:13)
[2023-08-25 08:41] LABS: EOS % 1.6 % (0-4.5); HEMATOCRIT 31.7 % (32.4-45.2); HEMOGLOBIN 10.3 GM/dL (10.7-15.3); LYMPH % 21.8 % (8-40); MCHC 32.5 g/dl (32.0-36.0); MEAN CELL VOLUME 95.2 fl (80-96); MEAN PLT VOLUME 6.8 fl (7.5-11.1); MONO % 6.5 % (3.8-10.2); NEUT % 69.1 % (42.8-82.8); PLATELET COUNT 522 10^3/uL (134-434); RBC 3.33 M/mm3 (3.60-5.2); RDW 14.1 % (11.6-15.6)
[2023-08-25 08:59] LABS: POTASSIUM 3.8 mmol/L (3.5-5.1)
[2023-08-25 09:02] LABS: ALBUMIN 1.7 g/dl (3.4-5.0); BLOOD UREA NITROGEN 24.2 mg/dL (7-18); CALCIUM 8.1 mg/dL (8.5-10.1)
[2023-08-25 09:05] LABS: CREATININE 0.4 mg/dL (0.55-1.3)
[2023-08-25 09:07] LABS: BILIRUBIN,TOTAL 0.2 mg/dL (0.2-1); TOT PROT 6.1 g/dl (6.4-8.2)
[2023-08-25] MEDS: CYANOCOBALAMIN (VITAMIN B-12) 100 MCG TABLET GT SCH (09:29)
[2023-08-25] MEDS: AMINO ACIDS/PROTEIN HYDROLYS 30 ML LIQUID.PKT PEG SCH ×3 (09:29→18:51)
[2023-08-25] MEDS: ASCORBIC ACID 250 MG TABLET (FP) PEG SCH (09:29)
[2023-08-25] MEDS: ENOXAPARIN NA (PORCINE) 40 MG/0.4 ML DISP.SYRIN SQ SCH (09:30)
[2023-08-25] MEDS: levETIRAcetam 500 MG/5 ML INJECTION VIAL IVPB SCH ×2 (09:30→21:34)
[2023-08-25] MEDS: PANTOPRAZOLE SODIUM 40 MG VIAL IVPUSH SCH (09:30)
[2023-08-25] MEDS: MULTIVIT-MINERALS ORAL LIQUID PEG SCH (09:31)
[2023-08-25] MEDS: FOLIC ACID 5 MG/1 ML SQ SCH (14:15)
[2023-08-25] MEDS: SCOPOLAMINE HYDROBROMIDE 1 PATCH PATCH.TD72 TD SCH (18:51)
[2023-08-26] MEDS: LEVOTHYROXINE NA 88 MCG TABLET (FP) PEG SCH (06:41)
[2023-08-26] MEDS: ENOXAPARIN NA (PORCINE) 40 MG/0.4 ML DISP.SYRIN SQ SCH (09:53)
[2023-08-26] MEDS: levETIRAcetam 500 MG/5 ML INJECTION VIAL IVPB SCH ×2 (09:54→21:18)
[2023-08-26] MEDS: AMINO ACIDS/PROTEIN HYDROLYS 30 ML LIQUID.PKT PEG SCH ×3 (09:54→17:28)
[2023-08-26] MEDS: ASCORBIC ACID 250 MG TABLET (FP) PEG SCH (09:54)
[2023-08-26] MEDS: CYANOCOBALAMIN (VITAMIN B-12) 100 MCG TABLET GT SCH (10:00)
[2023-08-26] MEDS: PANTOPRAZOLE SODIUM 40 MG VIAL IVPUSH SCH (10:16)
[2023-08-26 10:21] LABS: BASO % 0.8 % (0-2.0); HEMOGLOBIN 10.1 GM/dL (10.7-15.3); LYMPH % 23.5 % (8-40); MCH 31.1 pg (25.7-33.7); MCHC 32.5 g/dl (32.0-36.0); MEAN CELL VOLUME 95.7 fl (80-96); MEAN PLT VOLUME 7.2 fl (7.5-11.1); MONO % 6.6 % (3.8-10.2); NEUT % 67.1 % (42.8-82.8); PLATELET COUNT 511 10^3/uL (134-434); RBC 3.24 M/mm3 (3.60-5.2); RDW 14.1 % (11.6-15.6); WHITE BLOOD COUNT 11.3 K/mm3 (4.0-10.0)
[2023-08-26 10:38] LABS: POTASSIUM 4.1 mmol/L (3.5-5.1)
[2023-08-26] MEDS: MULTIVIT-MINERALS ORAL LIQUID PEG SCH (10:39)
[2023-08-26 10:51] LABS: CALCIUM 8.8 mg/dL (8.5-10.1)
[2023-08-26 10:52] LABS: ALBUMIN 1.8 g/dl (3.4-5.0); BLOOD UREA NITROGEN 27.8 mg/dL (7-18)
[2023-08-26 10:55] LABS: CREATININE 0.3 mg/dL (0.55-1.3)
[2023-08-26 10:56] LABS: BILIRUBIN,TOTAL 0.3 mg/dL (0.2-1)
[2023-08-26 10:57] LABS: TOT PROT 6.2 g/dl (6.4-8.2)
[2023-08-26] MEDS: FOLIC ACID 5 MG/1 ML SQ SCH (11:30)
[2023-08-27] MEDS: LEVOTHYROXINE NA 88 MCG TABLET (FP) PEG SCH (06:24)
[2023-08-27] MEDS: AMINO ACIDS/PROTEIN HYDROLYS 30 ML LIQUID.PKT PEG SCH ×3 (08:50→17:29)
[2023-08-27] MEDS: COLLAGENASE CLOSTRIDIUM HIST. 30 GRAMS TUBE TP SCH ×2 (10:31)
[2023-08-27] MEDS: PANTOPRAZOLE SODIUM 40 MG VIAL IVPUSH SCH (10:33)
[2023-08-27] MEDS: FOLIC ACID 5 MG/1 ML SQ SCH (10:33)
[2023-08-27] MEDS: MULTIVIT-MINERALS ORAL LIQUID PEG SCH (10:33)
[2023-08-27] MEDS: ASCORBIC ACID 250 MG TABLET (FP) PEG SCH (10:33)
[2023-08-27] MEDS: CYANOCOBALAMIN (VITAMIN B-12) 100 MCG TABLET GT SCH (10:34)
[2023-08-27] MEDS: levETIRAcetam 500 MG/5 ML INJECTION VIAL IVPB SCH ×2 (10:34→21:10)
[2023-08-27 10:46] LABS: BASO % 0.8 % (0-2.0); HEMATOCRIT 32.2 % (32.4-45.2); HEMOGLOBIN 10.7 GM/dL (10.7-15.3); LYMPH % 24.7 % (8-40); MCH 31.2 pg (25.7-33.7); MCHC 33.2 g/dl (32.0-36.0); MEAN CELL VOLUME 94.1 fl (80-96); MEAN PLT VOLUME 6.8 fl (7.5-11.1); MONO % 7.3 % (3.8-10.2); NEUT % 64.2 % (42.8-82.8); PLATELET COUNT 499 10^3/uL (134-434); RBC 3.42 M/mm3 (3.60-5.2); RDW 13.9 % (11.6-15.6)
[2023-08-27 11:06] LABS: POTASSIUM 4.1 mmol/L (3.5-5.1)
[2023-08-27 11:08] LABS: CALCIUM 8.8 mg/dL (8.5-10.1)
[2023-08-27 11:09] LABS: BLOOD UREA NITROGEN 22.6 mg/dL (7-18)
[2023-08-27 11:12] LABS: CREATININE 0.3 mg/dL (0.55-1.3)
[2023-08-27] MEDS: ENOXAPARIN NA (PORCINE) 40 MG/0.4 ML DISP.SYRIN SQ SCH (16:18)
[2023-08-28] MEDS: LEVOTHYROXINE NA 88 MCG TABLET (FP) PEG SCH (06:06)
[2023-08-28] MEDS: AMINO ACIDS/PROTEIN HYDROLYS 30 ML LIQUID.PKT PEG SCH ×3 (07:53→18:29)
[2023-08-28] MEDS: MULTIVIT-MINERALS ORAL LIQUID PEG SCH (10:43)
[2023-08-28] MEDS: CYANOCOBALAMIN (VITAMIN B-12) 100 MCG TABLET GT SCH (10:44)
[2023-08-28] MEDS: ASCORBIC ACID 250 MG TABLET (FP) PEG SCH (10:44)
[2023-08-28] MEDS: levETIRAcetam 500 MG/5 ML INJECTION VIAL IVPB SCH ×2 (10:49→22:12)
[2023-08-28] MEDS: PANTOPRAZOLE SODIUM 40 MG VIAL IVPUSH SCH (10:49)
[2023-08-28] MEDS: COLLAGENASE CLOSTRIDIUM HIST. 30 GRAMS TUBE TP SCH (10:51)
[2023-08-28 10:52] LABS: POTASSIUM 3.7 mmol/L (3.5-5.1)
[2023-08-28 10:53] LABS: CALCIUM 9.1 mg/dL (8.5-10.1)
[2023-08-28 10:54] LABS: ALBUMIN 1.9 g/dl (3.4-5.0); BLOOD UREA NITROGEN 19.8 mg/dL (7-18)
[2023-08-28 10:57] LABS: CREATININE 0.3 mg/dL (0.55-1.3)
[2023-08-28 10:58] LABS: BILIRUBIN,TOTAL 0.5 mg/dL (0.2-1); TOT PROT 6.6 g/dl (6.4-8.2)
[2023-08-28 11:25] LABS: BASO % 0.8 % (0-2.0); EOS % 1.7 % (0-4.5); HEMATOCRIT 33.1 % (32.4-45.2); HEMOGLOBIN 10.9 GM/dL (10.7-15.3); LYMPH % 22.7 % (8-40); MCH 30.9 pg (25.7-33.7); MEAN CELL VOLUME 93.7 fl (80-96); MEAN PLT VOLUME 7.1 fl (7.5-11.1); MONO % 7.7 % (3.8-10.2); NEUT % 67.1 % (42.8-82.8); PLATELET COUNT 542 10^3/uL (134-434); RBC 3.53 M/mm3 (3.60-5.2); RDW 13.9 % (11.6-15.6); WHITE BLOOD COUNT 11.4 K/mm3 (4.0-10.0)
[2023-08-28] MEDS: FOLIC ACID 5 MG/1 ML SQ SCH (11:53)
[2023-08-28] MEDS ORDERED: ACETAMINOPHEN 325 MG TABLET (FP) PO PRN (15:41)
[2023-08-28] MEDS: SCOPOLAMINE HYDROBROMIDE 1 PATCH PATCH.TD72 TD SCH (18:29)
[2023-08-29] MEDS: LEVOTHYROXINE NA 88 MCG TABLET (FP) PEG SCH (06:00)
[2023-08-29] MEDS: AMINO ACIDS/PROTEIN HYDROLYS 30 ML LIQUID.PKT PEG SCH ×3 (08:13→16:58)
[2023-08-29 09:02] LABS: BASO % 1.1 % (0-2.0); EOS % 3.2 % (0-4.5); HEMATOCRIT 33.3 % (32.4-45.2); HEMOGLOBIN 10.9 GM/dL (10.7-15.3); LYMPH % 32.6 % (8-40); MCH 30.7 pg (25.7-33.7); MCHC 32.7 g/dl (32.0-36.0); MEAN CELL VOLUME 93.7 fl (80-96); MEAN PLT VOLUME 7.1 fl (7.5-11.1); MONO % 8.2 % (3.8-10.2); NEUT % 54.9 % (42.8-82.8); PLATELET COUNT 548 10^3/uL (134-434); RBC 3.55 M/mm3 (3.60-5.2); RDW 13.6 % (11.6-15.6)
[2023-08-29] MEDS: PANTOPRAZOLE SODIUM 40 MG VIAL IVPUSH SCH (09:04)
[2023-08-29] MEDS: levETIRAcetam 500 MG/5 ML INJECTION VIAL IVPB SCH ×2 (09:04→21:17)
[2023-08-29] MEDS: ASCORBIC ACID 250 MG TABLET (FP) PEG SCH (09:09)
[2023-08-29] MEDS: CYANOCOBALAMIN (VITAMIN B-12) 100 MCG TABLET GT SCH (09:09)
[2023-08-29] MEDS: MULTIVIT-MINERALS ORAL LIQUID PEG SCH (09:09)
[2023-08-29 09:38] LABS: POTASSIUM 3.6 mmol/L (3.5-5.1)
[2023-08-29 09:44] LABS: BLOOD UREA NITROGEN 17.7 mg/dL (7-18); CALCIUM 8.5 mg/dL (8.5-10.1)
[2023-08-29 09:47] LABS: CREATININE 0.4 mg/dL (0.55-1.3)
[2023-08-29 09:49] LABS: BILIRUBIN,TOTAL 0.3 mg/dL (0.2-1); TOT PROT 6.7 g/dl (6.4-8.2)
[2023-08-29 10:47] LABS: MAGNESIUM 1.9 mg/dL (1.8-2.4)
[2023-08-29 10:51] LABS: PHOSPHOROUS 3.9 mg/dL (2.5-4.9)
[2023-08-29] MEDS: COLLAGENASE CLOSTRIDIUM HIST. 30 GRAMS TUBE TP SCH (12:38)
[2023-08-29] MEDS: FOLIC ACID 5 MG/1 ML SQ SCH ×2 (12:38→13:32)
[2023-08-29] MEDS: DEXTROSE 5%-LACTATED RINGERS 1,000 ML IV SCH (15:30)
[2023-08-29] MEDS: AMINO ACIDS 4.25%/D5W 1,000 ML IV SCH (16:45)
[2023-08-30] MEDS: DEXTROSE 5%-LACTATED RINGERS 1,000 ML IV SCH ×3 (05:47→16:26)
[2023-08-30] MEDS: LEVOTHYROXINE NA 88 MCG TABLET (FP) PEG SCH (06:00)
[2023-08-30] MEDS: AMINO ACIDS/PROTEIN HYDROLYS 30 ML LIQUID.PKT PEG SCH ×3 (09:59→17:11)
[2023-08-30] MEDS: MULTIVIT-MINERALS ORAL LIQUID PEG SCH (09:59)
[2023-08-30] MEDS: ASCORBIC ACID 250 MG TABLET (FP) PEG SCH (10:00)
[2023-08-30] MEDS: CYANOCOBALAMIN (VITAMIN B-12) 100 MCG TABLET GT SCH (10:00)
[2023-08-30] MEDS: PANTOPRAZOLE SODIUM 40 MG VIAL IVPUSH SCH (10:06)
[2023-08-30] MEDS: levETIRAcetam 500 MG/5 ML INJECTION VIAL IVPB SCH ×2 (10:06→21:51)
[2023-08-30] MEDS: FOLIC ACID 5 MG/1 ML SQ SCH (10:07)
[2023-08-30] MEDS: COLLAGENASE CLOSTRIDIUM HIST. 30 GRAMS TUBE TP SCH (10:13)
[2023-08-30 10:56] LABS: BASO % 1.4 % (0-2.0); HEMATOCRIT 31.9 % (32.4-45.2); HEMOGLOBIN 10.4 GM/dL (10.7-15.3); LYMPH % 31.8 % (8-40); MCH 30.5 pg (25.7-33.7); MCHC 32.8 g/dl (32.0-36.0); MEAN CELL VOLUME 93.1 fl (80-96); MEAN PLT VOLUME 7.1 fl (7.5-11.1); MONO % 9.7 % (3.8-10.2); NEUT % 54.1 % (42.8-82.8); PLATELET COUNT 497 10^3/uL (134-434); RBC 3.43 M/mm3 (3.60-5.2); RDW 13.9 % (11.6-15.6); WHITE BLOOD COUNT 7.2 K/mm3 (4.0-10.0)
[2023-08-30 11:27] LABS: POTASSIUM 3.3 mmol/L (3.5-5.1)
[2023-08-30 11:32] LABS: BLOOD UREA NITROGEN 19.6 mg/dL (7-18)
[2023-08-30 11:33] LABS: CALCIUM 8.5 mg/dL (8.5-10.1)
[2023-08-30 11:34] LABS: CREATININE 0.4 mg/dL (0.55-1.3)
[2023-08-30 11:36] LABS: BILIRUBIN,TOTAL 0.4 mg/dL (0.2-1); TOT PROT 6.2 g/dl (6.4-8.2)
[2023-08-30 12:09] LABS: ERYTHROCYTE SEDIMENTATION RATE 99 mm/hr (0-30)
[2023-08-30] MEDS: AMINO ACIDS 4.25%/D5W 1,000 ML IV SCH (15:15)
[2023-08-30] MEDS ORDERED: KCL 10 MEQ IVPB 10 MEQ/100 ML INFUS.BAG IVPB SCH (16:15)
[2023-08-30] MEDS ORDERED: POTASSIUM CHLORIDE ORAL LIQUID 20 MEQ/15 ML PEG ONE (16:32)
[2023-08-30] MEDS ORDERED: KCL 10 MEQ IVPB 10 MEQ/100 ML INFUS.BAG IVPB ONE (16:52)
[2023-08-30] MEDS ORDERED: GLUCAGON 1 MG KIT ONE (17:05)
[2023-08-30] MEDS ORDERED: FENTANYL CITRATE/PF 50 MCG/ML VIAL ONE ×2 (17:35→17:54)
[2023-08-30] MEDS: FENTANYL CITRATE/PF 50 MCG/ML VIAL IVPUSH SCH ×2 (17:45→17:55)
[2023-08-30] MEDS ORDERED: GLUCAGON 1 MG KIT IVPUSH ONE (17:50)
[2023-08-31 00:22] LABS: AMORP PHOS FEW /hpf (NONE SEEN); EPITHELIAL CELLS 32.1 /hpf
[2023-08-31] MEDS: LEVOTHYROXINE NA 88 MCG TABLET (FP) PEG SCH (06:04)
[2023-08-31] MEDS: AMINO ACIDS/PROTEIN HYDROLYS 30 ML LIQUID.PKT PEG SCH ×3 (07:59→17:01)
[2023-08-31] MEDS: COLLAGENASE CLOSTRIDIUM HIST. 30 GRAMS TUBE TP SCH (11:15)
[2023-08-31] MEDS: FOLIC ACID 5 MG/1 ML SQ SCH (11:15)
[2023-08-31] MEDS: levETIRAcetam 500 MG/5 ML INJECTION VIAL IVPB SCH ×2 (11:15→22:25)
[2023-08-31] MEDS: MULTIVIT-MINERALS ORAL LIQUID PEG SCH (11:15)
[2023-08-31] MEDS: PANTOPRAZOLE SODIUM 40 MG VIAL IVPUSH SCH (11:16)
[2023-08-31] MEDS: CYANOCOBALAMIN (VITAMIN B-12) 100 MCG TABLET GT SCH (11:16)
[2023-08-31] MEDS: ASCORBIC ACID 250 MG TABLET (FP) PEG SCH (11:16)
[2023-08-31] MEDS: AMINO ACIDS 4.25%/D5W 1,000 ML IV SCH (16:52)
[2023-08-31] MEDS: KCL 10 MEQ IVPB 10 MEQ/100 ML INFUS.BAG IVPB SCH ×3 (16:52→20:08)
[2023-08-31] MEDS: DEXTROSE 5%-LACTATED RINGERS 1,000 ML IV SCH (17:00)
[2023-08-31] MEDS: SCOPOLAMINE HYDROBROMIDE 1 PATCH PATCH.TD72 TD SCH (17:50)
[2023-09-01] MEDS: LEVOTHYROXINE NA 88 MCG TABLET (FP) PEG SCH (06:01)
[2023-09-01] MEDS: ASCORBIC ACID 250 MG TABLET (FP) PEG SCH (10:05)
[2023-09-01] MEDS: AMINO ACIDS/PROTEIN HYDROLYS 30 ML LIQUID.PKT PEG SCH ×3 (10:05→16:46)
[2023-09-01] MEDS: PANTOPRAZOLE SODIUM 40 MG VIAL IVPUSH SCH (10:05)
[2023-09-01] MEDS: CYANOCOBALAMIN (VITAMIN B-12) 100 MCG TABLET GT SCH (10:05)
[2023-09-01] MEDS: MULTIVIT-MINERALS ORAL LIQUID PEG SCH (10:06)
[2023-09-01] MEDS: levETIRAcetam 500 MG/5 ML INJECTION VIAL IVPB SCH (10:06)
[2023-09-01] MEDS: COLLAGENASE CLOSTRIDIUM HIST. 30 GRAMS TUBE TP SCH (10:08)
[2023-09-01] MEDS: FOLIC ACID 5 MG/1 ML SQ SCH (11:45)
[2023-09-01 11:50] LABS: BASO % 0.6 % (0-2.0); EOS % 2.2 % (0-4.5); HEMATOCRIT 35.4 % (32.4-45.2); HEMOGLOBIN 11.7 GM/dL (10.7-15.3); LYMPH % 27.8 % (8-40); MCH 30.7 pg (25.7-33.7); MCHC 32.9 g/dl (32.0-36.0); MEAN CELL VOLUME 93.3 fl (80-96); MONO % 10.9 % (3.8-10.2); NEUT % 58.5 % (42.8-82.8); PLATELET COUNT 471 10^3/uL (134-434); RDW 13.8 % (11.6-15.6); WHITE BLOOD COUNT 8.5 K/mm3 (4.0-10.0)
[2023-09-01 12:12] LABS: POTASSIUM 3.1 mmol/L (3.5-5.1)
[2023-09-01 12:21] LABS: CALCIUM 8.3 mg/dL (8.5-10.1)
[2023-09-01 12:22] LABS: BLOOD UREA NITROGEN 11.9 mg/dL (7-18); MAGNESIUM 1.5 mg/dL (1.8-2.4)
[2023-09-01 12:25] LABS: CREATININE 0.4 mg/dL (0.55-1.3); PHOSPHOROUS 2.4 mg/dL (2.5-4.9)
[2023-09-01 12:26] LABS: BILIRUBIN,TOTAL 0.3 mg/dL (0.2-1); TOT PROT 6.5 g/dl (6.4-8.2)
[2023-09-01] MEDS ORDERED: POTASSIUM CHLORIDE TABS 20 MEQ TABLET.ER (FP) PO ONE (14:04)
[2023-09-01] MEDS ORDERED: MAGNESIUM SULF 50% (8.12 MEQ/2 ML-1 GM VIAL) IVPB ONE (14:09)
[2023-09-01] MEDS ORDERED: POTASSIUM CHLORIDE ORAL LIQUID 20 MEQ/15 ML PO ONE ×2 (14:15→14:35)
[2023-09-01] MEDS ORDERED: POTASSIUM PHOSPHATE 15 MM in DEXTROSE 5%-WATER - 250 ML IVPB ONE (15:30)
[2023-09-01] MEDS ORDERED: NAPH,MB-DB/K PH,MBDB POWDER PACKET GT ONE (16:30)
[2023-09-01] MEDS ORDERED: POTASSIUM CHLORIDE ORAL LIQUID 20 MEQ/15 ML GT ONE (16:30)
[2023-09-01] MEDS ORDERED: MAGNESIUM OXIDE 400 MG TABLET (FP) GT ONE (16:45)
[2023-09-01 17:21] LABS: POTASSIUM 3.3 mmol/L (3.5-5.1)
[2023-09-01 17:24] LABS: BLOOD UREA NITROGEN 13.3 mg/dL (7-18); CALCIUM 8.3 mg/dL (8.5-10.1)
[2023-09-01 17:27] LABS: CREATININE 0.4 mg/dL (0.55-1.3)
[2023-09-01 17:29] LABS: BILIRUBIN,TOTAL 0.3 mg/dL (0.2-1); TOT PROT 6.5 g/dl (6.4-8.2)
[2023-09-01] MEDS ORDERED: PHENOBARBITAL 20 MG/5 ML LIQUID PO SCH (22:00)
[2023-09-01] MEDS ORDERED: levETIRAcetam 500 MG/5 ML ORAL SOLUTION (UNIT-DOSE CUPS) PO SCH (22:00)
[2023-09-01] MEDS: levETIRAcetam 500 MG/5 ML ORAL SOLUTION (UNIT-DOSE CUPS) GT SCH (22:47)
[2023-09-02] MEDS: LEVOTHYROXINE NA 88 MCG TABLET (FP) PEG SCH (05:59)
[2023-09-02] MEDS: AMINO ACIDS/PROTEIN HYDROLYS 30 ML LIQUID.PKT PEG SCH ×3 (08:42→17:42)
[2023-09-02 09:31] LABS: POTASSIUM 3.5 mmol/L (3.5-5.1)
[2023-09-02 09:38] LABS: ALBUMIN 2.2 g/dl (3.4-5.0); BLOOD UREA NITROGEN 16.3 mg/dL (7-18); CALCIUM 8.6 mg/dL (8.5-10.1); CREATININE 0.3 mg/dL (0.55-1.3)
[2023-09-02 09:41] LABS: BILIRUBIN,TOTAL 0.2 mg/dL (0.2-1); TOT PROT 6.7 g/dl (6.4-8.2)
[2023-09-02] MEDS ORDERED: PANTOPRAZOLE SOD 40 MG SUSPENSION PACKET PO SCH (10:00)
[2023-09-02] MEDS: levETIRAcetam 500 MG/5 ML ORAL SOLUTION (UNIT-DOSE CUPS) GT SCH ×2 (10:12→21:28)
[2023-09-02] MEDS: ASCORBIC ACID 250 MG TABLET (FP) PEG SCH (10:13)
[2023-09-02] MEDS: MULTIVIT-MINERALS ORAL LIQUID PEG SCH (10:14)
[2023-09-02] MEDS: CYANOCOBALAMIN (VITAMIN B-12) 100 MCG TABLET GT SCH (10:14)
[2023-09-02] MEDS: FOLIC ACID 1 MG TABLET (FP) GT SCH (10:14)
[2023-09-02] MEDS: FAMOTIDINE 20 MG/2.5 ML ORAL LIQUID GT SCH ×2 (10:14→21:29)
[2023-09-02] MEDS: COLLAGENASE CLOSTRIDIUM HIST. 30 GRAMS TUBE TP SCH (10:15)
[2023-09-02] MEDS: AMOXICILLIN ORAL SUSPENSION - 250 MG/5 ML GT SCH ×3 (10:34→21:34)
[2023-09-02 11:35] LABS: EPI CELLS >36 /uL (0-25.1); HYALINE CASTS 1 /uL (0-3.1); PH,URINE >= 9.0 (5.0-8.0); URINE APPEARANCE TURBID; URINE BACTERIA >9,000 /uL (0-1359); URINE BILIRUBIN NEGATIVE (NEGATIVE); URINE COLOR YELLOW; URINE GLUCOSE (UA) NEGATIVE (NEGATIVE); URINE KETONE NEGATIVE (NEGATIVE); URINE LEUK ESTERASE 1+ (NEGATIVE); URINE NITRITE POSITIVE (NEGATIVE); URINE PROTEIN 1+ (NEGATIVE); URINE RBC 10 /uL (0-23.9); URINE WBC 62 /uL (0-25.8)
[2023-09-02 12:00] LABS: URINE CRYSTALS TRIPLE PHOS. FEW /hpf; YEAST NEGATIVE (NEGATIVE)
[2023-09-02 15:03] LABS: MAGNESIUM 1.8 mg/dL (1.8-2.4)
[2023-09-02 15:07] LABS: PHOSPHOROUS 3.2 mg/dL (2.5-4.9)
[2023-09-03] MEDS: AMOXICILLIN ORAL SUSPENSION - 250 MG/5 ML GT SCH ×2 (06:00→14:10)
[2023-09-03] MEDS: LEVOTHYROXINE NA 88 MCG TABLET (FP) PEG SCH (06:00)
[2023-09-03] MEDS: AMINO ACIDS/PROTEIN HYDROLYS 30 ML LIQUID.PKT PEG SCH ×3 (08:20→17:15)
[2023-09-03] MEDS: levETIRAcetam 500 MG/5 ML ORAL SOLUTION (UNIT-DOSE CUPS) GT SCH ×2 (10:39→21:52)
[2023-09-03] MEDS: FOLIC ACID 1 MG TABLET (FP) GT SCH (10:40)
[2023-09-03] MEDS: ASCORBIC ACID 250 MG TABLET (FP) PEG SCH (10:40)
[2023-09-03] MEDS: CYANOCOBALAMIN (VITAMIN B-12) 100 MCG TABLET GT SCH (10:40)
[2023-09-03] MEDS: FAMOTIDINE 20 MG/2.5 ML ORAL LIQUID GT SCH ×2 (10:41→21:52)
[2023-09-03] MEDS: MULTIVIT-MINERALS ORAL LIQUID PEG SCH (10:44)
[2023-09-03] MEDS: COLLAGENASE CLOSTRIDIUM HIST. 30 GRAMS TUBE TP SCH (10:45)
[2023-09-03 16:38] LABS: BASO % 0.6 % (0-2.0); EOS % 2.1 % (0-4.5); HEMATOCRIT 36.4 % (32.4-45.2); LYMPH % 16.8 % (8-40); MCH 30.6 pg (25.7-33.7); MCHC 32.9 g/dl (32.0-36.0); MEAN CELL VOLUME 93.1 fl (80-96); MEAN PLT VOLUME 7.3 fl (7.5-11.1); NEUT % 72.5 % (42.8-82.8); PLATELET COUNT 465 10^3/uL (134-434); RBC 3.91 M/mm3 (3.60-5.2); RDW 13.9 % (11.6-15.6); WHITE BLOOD COUNT 9.9 K/mm3 (4.0-10.0)
[2023-09-03 16:56] LABS: POTASSIUM 3.4 mmol/L (3.5-5.1)
[2023-09-03 16:59] LABS: CALCIUM 7.7 mg/dL (8.5-10.1)
[2023-09-03 17:00] LABS: BLOOD UREA NITROGEN 13.7 mg/dL (7-18)
[2023-09-03 17:03] LABS: CREATININE 0.5 mg/dL (0.55-1.3)
[2023-09-03] MEDS: SCOPOLAMINE HYDROBROMIDE 1 PATCH PATCH.TD72 TD SCH (17:15)
[2023-09-03] MEDS: DEXTROSE 5%-0.45% SALINE 1,000 ML IV SCH (18:00)
[2023-09-03] MEDS: PIPERACILLIN/TAZOB 4.5 GM 4.5 GM in DEXTROSE 5%-WATER 100 ML IVPB SCH (21:50)
[2023-09-04] MEDS: PIPERACILLIN/TAZOB 4.5 GM 4.5 GM in DEXTROSE 5%-WATER 100 ML IVPB SCH ×3 (03:33→16:45)
[2023-09-04] MEDS: LEVOTHYROXINE NA 88 MCG TABLET (FP) PEG SCH (06:52)
[2023-09-04] MEDS: AMINO ACIDS/PROTEIN HYDROLYS 30 ML LIQUID.PKT PEG SCH ×3 (08:22→16:46)
[2023-09-04 10:23] LABS: BASO % 1.1 % (0-2.0); EOS % 7.2 % (0-4.5); HEMATOCRIT 34.4 % (32.4-45.2); HEMOGLOBIN 11.4 GM/dL (10.7-15.3); LYMPH % 33.3 % (8-40); MCH 30.8 pg (25.7-33.7); MCHC 33.1 g/dl (32.0-36.0); MEAN CELL VOLUME 93.3 fl (80-96); MONO % 9.3 % (3.8-10.2); NEUT % 49.1 % (42.8-82.8); PLATELET COUNT 441 10^3/uL (134-434); RBC 3.68 M/mm3 (3.60-5.2); WHITE BLOOD COUNT 8.5 K/mm3 (4.0-10.0)
[2023-09-04 10:38] LABS: POTASSIUM 3.3 mmol/L (3.5-5.1)
[2023-09-04 10:42] LABS: CALCIUM 8.6 mg/dL (8.5-10.1)
[2023-09-04 10:43] LABS: ALBUMIN 2.1 g/dl (3.4-5.0); BLOOD UREA NITROGEN 14.2 mg/dL (7-18); MAGNESIUM 1.9 mg/dL (1.8-2.4)
[2023-09-04 10:46] LABS: CREATININE 0.5 mg/dL (0.55-1.3); PHOSPHOROUS 3.8 mg/dL (2.5-4.9)
[2023-09-04 10:47] LABS: BILIRUBIN,TOTAL 0.3 mg/dL (0.2-1); TOT PROT 6.3 g/dl (6.4-8.2)
[2023-09-04] MEDS: POTASSIUM CHLORIDE ORAL LIQUID 20 MEQ/15 ML PO SCH ×2 (11:23→21:57)
[2023-09-04] MEDS: CYANOCOBALAMIN (VITAMIN B-12) 100 MCG TABLET GT SCH (11:23)
[2023-09-04] MEDS: levETIRAcetam 500 MG/5 ML ORAL SOLUTION (UNIT-DOSE CUPS) GT SCH ×2 (11:23→21:56)
[2023-09-04] MEDS: COLLAGENASE CLOSTRIDIUM HIST. 30 GRAMS TUBE TP SCH (11:24)
[2023-09-04] MEDS: ASCORBIC ACID 250 MG TABLET (FP) PEG SCH (11:24)
[2023-09-04] MEDS: FOLIC ACID 1 MG TABLET (FP) GT SCH (11:24)
[2023-09-04] MEDS: MULTIVIT-MINERALS ORAL LIQUID PEG SCH (13:20)
[2023-09-04] MEDS: DEXTROSE 5%-0.45% SALINE 1,000 ML IV SCH (13:20)
[2023-09-04] MEDS: FAMOTIDINE 20 MG/2.5 ML ORAL LIQUID GT SCH ×2 (13:21→21:57)
[2023-09-04] MEDS: AMOXICILLIN 500 MG CAPSULE (FP) PO SCH (23:15)
[2023-09-05 03:12] LABS: EPI CELLS >36 /uL (0-25.1); HYALINE CASTS 104 /uL (0-3.1); PH,URINE 7.5 (5.0-8.0); URINE APPEARANCE TURBID; URINE BACTERIA >9,000 /uL (0-1359); URINE BILIRUBIN 1+ (NEGATIVE); URINE COLOR DK YELLOW; URINE GLUCOSE (UA) NEGATIVE (NEGATIVE); URINE KETONE NEGATIVE (NEGATIVE); URINE LEUK ESTERASE 3+ (NEGATIVE); URINE NITRITE POSITIVE (NEGATIVE); URINE PROTEIN TRACE (NEGATIVE); URINE WBC 26 /uL (0-25.8)
[2023-09-05] MEDS: LEVOTHYROXINE NA 88 MCG TABLET (FP) PEG SCH (06:31)
[2023-09-05 07:16] LABS: URINE CRYSTALS FEW /hpf; YEAST FEW (NEGATIVE)
[2023-09-05 07:17] LABS: URINE RBC 97.6 /uL (0-23.9)
[2023-09-05] MEDS: AMINO ACIDS/PROTEIN HYDROLYS 30 ML LIQUID.PKT PEG SCH ×3 (08:23→16:46)
[2023-09-05] MEDS: PIPERACILLIN/TAZOB 4.5 GM 4.5 GM in DEXTROSE 5%-WATER 100 ML IVPB SCH ×2 (09:50→09:52)
[2023-09-05] MEDS: POTASSIUM CHLORIDE ORAL LIQUID 20 MEQ/15 ML PO SCH (09:59)
[2023-09-05] MEDS: levETIRAcetam 500 MG/5 ML ORAL SOLUTION (UNIT-DOSE CUPS) GT SCH ×2 (09:59→21:23)
[2023-09-05] MEDS: ASCORBIC ACID 250 MG TABLET (FP) PEG SCH (10:00)
[2023-09-05] MEDS: AMOXICILLIN 500 MG CAPSULE (FP) PO SCH ×2 (10:01→21:23)
[2023-09-05] MEDS: CYANOCOBALAMIN (VITAMIN B-12) 100 MCG TABLET GT SCH (10:01)
[2023-09-05] MEDS: FOLIC ACID 1 MG TABLET (FP) GT SCH (10:01)
[2023-09-05] MEDS: MULTIVIT-MINERALS ORAL LIQUID PEG SCH (10:02)
[2023-09-05] MEDS: FAMOTIDINE 20 MG/2.5 ML ORAL LIQUID GT SCH ×2 (10:02→21:23)
[2023-09-05] MEDS: COLLAGENASE CLOSTRIDIUM HIST. 30 GRAMS TUBE TP SCH (10:02)
[2023-09-05 10:37] LABS: BASO % 0.6 % (0-2.0); HEMATOCRIT 32.7 % (32.4-45.2); HEMOGLOBIN 10.9 GM/dL (10.7-15.3); LYMPH % 28.2 % (8-40); MCH 31.2 pg (25.7-33.7); MCHC 33.4 g/dl (32.0-36.0); MEAN CELL VOLUME 93.6 fl (80-96); MEAN PLT VOLUME 7.2 fl (7.5-11.1); MONO % 8.4 % (3.8-10.2); NEUT % 57.8 % (42.8-82.8); PLATELET COUNT 400 10^3/uL (134-434); POTASSIUM 3.4 mmol/L (3.5-5.1); RDW 13.8 % (11.6-15.6); WHITE BLOOD COUNT 8.3 K/mm3 (4.0-10.0)
[2023-09-05 10:40] LABS: CALCIUM 8.1 mg/dL (8.5-10.1)
[2023-09-05 10:43] LABS: CREATININE 0.5 mg/dL (0.55-1.3)
[2023-09-05 10:46] LABS: BILIRUBIN,TOTAL 0.2 mg/dL (0.2-1)
[2023-09-06] MEDS: LEVOTHYROXINE NA 88 MCG TABLET (FP) PEG SCH (06:22)
[2023-09-06] MEDS: AMINO ACIDS/PROTEIN HYDROLYS 30 ML LIQUID.PKT PEG SCH ×3 (08:36→18:01)
[2023-09-06] MEDS: FOLIC ACID 1 MG TABLET (FP) GT SCH (11:12)
[2023-09-06] MEDS: MULTIVIT-MINERALS ORAL LIQUID PEG SCH (11:12)
[2023-09-06] MEDS: FAMOTIDINE 20 MG/2.5 ML ORAL LIQUID GT SCH ×2 (11:12→21:39)
[2023-09-06] MEDS: CYANOCOBALAMIN (VITAMIN B-12) 100 MCG TABLET GT SCH (11:12)
[2023-09-06] MEDS: AMOXICILLIN 500 MG CAPSULE (FP) PO SCH ×2 (11:12→21:39)
[2023-09-06] MEDS: ASCORBIC ACID 250 MG TABLET (FP) PEG SCH (11:12)
[2023-09-06] MEDS: levETIRAcetam 500 MG/5 ML ORAL SOLUTION (UNIT-DOSE CUPS) GT SCH ×2 (11:13→21:39)
[2023-09-06] MEDS: COLLAGENASE CLOSTRIDIUM HIST. 30 GRAMS TUBE TP SCH (11:14)
[2023-09-06] MEDS: SCOPOLAMINE HYDROBROMIDE 1 PATCH PATCH.TD72 TD SCH (18:02)
[2023-09-07] MEDS: LEVOTHYROXINE NA 88 MCG TABLET (FP) PEG SCH (06:17)
[2023-09-07] MEDS: AMINO ACIDS/PROTEIN HYDROLYS 30 ML LIQUID.PKT PEG SCH ×2 (09:05→17:01)
[2023-09-07] MEDS: COLLAGENASE CLOSTRIDIUM HIST. 30 GRAMS TUBE TP SCH (09:07)
[2023-09-07] MEDS: ASCORBIC ACID 250 MG TABLET (FP) PEG SCH (09:11)
[2023-09-07] MEDS: FAMOTIDINE 20 MG/2.5 ML ORAL LIQUID GT SCH ×2 (09:11→21:34)
[2023-09-07] MEDS: FOLIC ACID 1 MG TABLET (FP) GT SCH (09:11)
[2023-09-07] MEDS: AMOXICILLIN 500 MG CAPSULE (FP) PO SCH (09:11)
[2023-09-07] MEDS: levETIRAcetam 500 MG/5 ML ORAL SOLUTION (UNIT-DOSE CUPS) GT SCH ×2 (09:11→21:34)
[2023-09-07] MEDS: CYANOCOBALAMIN (VITAMIN B-12) 100 MCG TABLET GT SCH (09:11)
[2023-09-07] MEDS: MULTIVIT-MINERALS ORAL LIQUID PEG SCH (09:11)
[2023-09-07 13:42] LABS: EPI CELLS >36 /uL (0-25.1); HYALINE CASTS 4 /uL (0-3.1); PH,URINE 7.5 (5.0-8.0); URINE APPEARANCE TURBID; URINE BILIRUBIN NEGATIVE (NEGATIVE); URINE COLOR YELLOW; URINE GLUCOSE (UA) NEGATIVE (NEGATIVE); URINE KETONE NEGATIVE (NEGATIVE); URINE LEUK ESTERASE 1+ (NEGATIVE); URINE NITRITE POSITIVE (NEGATIVE); URINE PROTEIN TRACE (NEGATIVE); URINE RBC 12 /uL (0-23.9); URINE UROBILINOGEN 0.2 mg/dL (0.2-1.0); URINE WBC 204 /uL (0-25.8)
[2023-09-07 13:51] LABS: URINE BACTERIA 53.5 /uL (0-1359); URINE CRYSTALS NEGATIVE /hpf
[2023-09-08] MEDS: LEVOTHYROXINE NA 88 MCG TABLET (FP) PEG SCH (06:43)
[2023-09-08] MEDS: AMINO ACIDS/PROTEIN HYDROLYS 30 ML LIQUID.PKT PEG SCH ×2 (08:22→17:04)
[2023-09-08 10:17] LABS: BASO % 0.5 % (0-2.0); EOS % 1.5 % (0-4.5); HEMATOCRIT 34.7 % (32.4-45.2); HEMOGLOBIN 11.3 GM/dL (10.7-15.3); LYMPH % 27.7 % (8-40); MCH 30.2 pg (25.7-33.7); MCHC 32.6 g/dl (32.0-36.0); MEAN CELL VOLUME 92.6 fl (80-96); MEAN PLT VOLUME 7.1 fl (7.5-11.1); MONO % 7.2 % (3.8-10.2); NEUT % 63.1 % (42.8-82.8); PLATELET COUNT 440 10^3/uL (134-434); RBC 3.74 M/mm3 (3.60-5.2); RDW 14.2 % (11.6-15.6); WHITE BLOOD COUNT 9.8 K/mm3 (4.0-10.0)
[2023-09-08 10:42] LABS: POTASSIUM 3.8 mmol/L (3.5-5.1)
[2023-09-08 10:44] LABS: CALCIUM 8.8 mg/dL (8.5-10.1)
[2023-09-08 10:45] LABS: ALBUMIN 2.2 g/dl (3.4-5.0); BLOOD UREA NITROGEN 23.4 mg/dL (7-18)
[2023-09-08 10:48] LABS: CREATININE 0.6 mg/dL (0.55-1.3)
[2023-09-08 10:50] LABS: BILIRUBIN,TOTAL 0.4 mg/dL (0.2-1); TOT PROT 6.7 g/dl (6.4-8.2)
[2023-09-08] MEDS: FAMOTIDINE 20 MG/2.5 ML ORAL LIQUID GT SCH ×2 (11:27→21:15)
[2023-09-08] MEDS: levETIRAcetam 500 MG/5 ML ORAL SOLUTION (UNIT-DOSE CUPS) GT SCH ×2 (11:28→21:14)
[2023-09-08] MEDS: ASCORBIC ACID 250 MG TABLET (FP) PEG SCH (11:28)
[2023-09-08] MEDS: FOLIC ACID 1 MG TABLET (FP) GT SCH (11:28)
[2023-09-08] MEDS: CYANOCOBALAMIN (VITAMIN B-12) 100 MCG TABLET GT SCH (11:28)
[2023-09-08] MEDS: MULTIVIT-MINERALS ORAL LIQUID PEG SCH (11:28)
[2023-09-08] MEDS: COLLAGENASE CLOSTRIDIUM HIST. 30 GRAMS TUBE TP SCH (11:42)
[2023-09-09 03:29] VITALS: RESP 18
[2023-09-09] MEDS: LEVOTHYROXINE NA 88 MCG TABLET (FP) PEG SCH (06:29)
[2023-09-09] MEDS: AMINO ACIDS/PROTEIN HYDROLYS 30 ML LIQUID.PKT PEG SCH (08:50)
[2023-09-09] MEDS: ASCORBIC ACID 250 MG TABLET (FP) PEG SCH (09:26)
[2023-09-09] MEDS: CYANOCOBALAMIN (VITAMIN B-12) 100 MCG TABLET GT SCH (09:26)
[2023-09-09] MEDS: COLLAGENASE CLOSTRIDIUM HIST. 30 GRAMS TUBE TP SCH (09:26)
[2023-09-09] MEDS: levETIRAcetam 500 MG/5 ML ORAL SOLUTION (UNIT-DOSE CUPS) GT SCH (09:26)
[2023-09-09] MEDS: FOLIC ACID 1 MG TABLET (FP) GT SCH (09:26)
[2023-09-09] MEDS: MULTIVIT-MINERALS ORAL LIQUID PEG SCH (09:26)
[2023-09-09] MEDS: FAMOTIDINE 20 MG/2.5 ML ORAL LIQUID GT SCH (09:26)
[2023-09-09 10:05] VITALS: BP 128/68; PULSE 86; TEMP 97.5
== END 2023-09-09 14:24 | DRG 91 ==
LOC: JER 09:43 → JERBED 16:30 → J6S 23:35 → J4S 08-01 19:08 → JICU 08-07 09:43 → J6S 08-16 23:45
PROVIDERS: ADMIT Internal Medicine; ATTEND Internal Medicine
PROC: 009U3ZZ Drainage of Spinal Canal, Percutaneous Approach (ICD-10-PCS; 2023-08-04)
PROC: 5A1955Z Respiratory Ventilation, Greater than 96 Consecutive Hours (ICD-10-PCS; principal; 2023-08-07)
PROC: 0BH17EZ Insertion of Endotracheal Airway into Trachea, Via Natural or Artificial Opening (ICD-10-PCS; 2023-08-07)
PROC: 0DH63UZ Insertion of Feeding Device into Stomach, Percutaneous Approach (ICD-10-PCS; 2023-08-30)
PROC: 3E0G76Z Introduction of Nutritional Substance into Upper GI, Via Natural or Artificial Opening (ICD-10-PCS; 2023-08-30)
DX: G92.8 Other toxic encephalopathy (principal); J69.0 Pneumonitis due to inhalation of food and vomit; J96.01 Acute respiratory failure with hypoxia; S22.42XA Multiple fractures of ribs, left side, initial encounter for closed fracture; N39.0 Urinary tract infection, site not specified; G95.89 Other specified diseases of spinal cord; I10 Essential (primary) hypertension; E03.9 Hypothyroidism, unspecified; R29.6 Repeated falls; G40.909 Epilepsy, unspecified, not intractable, without status epilepticus; R27.0 Ataxia, unspecified; G93.89 Other specified disorders of brain; E87.6 Hypokalemia; E88.09 Other disorders of plasma-protein metabolism, not elsewhere classified; G62.9 Polyneuropathy, unspecified; E83.42 Hypomagnesemia; R13.14 Dysphagia, pharyngoesophageal phase; D75.839 Thrombocytosis, unspecified; I80.8 Phlebitis and thrombophlebitis of other sites; T42.3X5A Adverse effect of barbiturates, initial encounter; W19.XXXA Unspecified fall, initial encounter; Y93.89 Activity, other specified; Y92.89 Other specified places as the place of occurrence of the external cause; Y99.8 Other external cause status
CPT/HCPCS: 0241U-QW; 36415; 36600; 49440; 62272; 70450-TC; 70551-TC; 71045-TC-FY; 71250-TC; 72125-TC; 72146-TC; 72148-TC; 72170-TC-FY; 73630-TC-RT-FY; 74018-TC-FY; 74230-TC-FY; 76705-TC; 80048; 80053; 80184; 80185; 80186; 81003; 81015; 82140; 82525; 82550; 82607; 82746; 82803; 82945; 82962; 83520; 83605; 83735; 84100; 84146; 84155; 84156; 84157; 84165; 84439; 84443; 84484; 84630; 85025; 85027; 85610; 85651; 85730; 86038; 86140; 86235; 86256; 86376; 86431; 86592; 86780; 86800; 87040; 87070; 87086; 87186; 87205; 87389; 87529; 87635; 92611-GN; 93005; 93010; 94002; 94640; 97116-GP; 97162-GP; 99285-25; J1644

== ENCOUNTER 2023-11-06 11:32 | Inpatient (IN) | payer OTHER ==
[2023-11-06 13:31] LABS: BASO % 0.7 % (0-2.0); EOS % 0.3 % (0-4.5); HEMOGLOBIN 12.7 GM/dL (10.7-15.3); LYMPH % 25.4 % (8-40); MCH 29.9 pg (25.7-33.7); MCHC 33.3 g/dl (32.0-36.0); MEAN CELL VOLUME 89.8 fl (80-96); MEAN PLT VOLUME 7.4 fl (7.5-11.1); MONO % 8.8 % (3.8-10.2); NEUT % 64.8 % (42.8-82.8); PLATELET COUNT 321 10^3/uL (134-434); RBC 4.24 M/mm3 (3.60-5.2); WHITE BLOOD COUNT 10.4 K/mm3 (4.0-10.0)
[2023-11-06] MEDS ORDERED: levETIRAcetam 500 MG/5 ML INJECTION VIAL IVPB ONE (13:37)
[2023-11-06] MEDS: levETIRAcetam 500 MG/5 ML INJECTION VIAL IVPB ONE (13:37)
[2023-11-06 13:38] LABS: INR 1.03 (0.83-1.09)
[2023-11-06 13:41] LABS: ACTIVATED PTT 25.2 SECONDS (25.2-36.5)
[2023-11-06 14:02] LABS: POTASSIUM 4.3 mmol/L (3.5-5.1)
[2023-11-06 14:03] LABS: PH,URINE > 9.0 (5.0-8.0); URINE APPEARANCE CLOUDY; URINE BILIRUBIN NEGATIVE (NEGATIVE); URINE COLOR YELLOW; URINE GLUCOSE (UA) NEGATIVE (NEGATIVE); URINE KETONE NEGATIVE (NEGATIVE)
[2023-11-06 14:04] LABS: CALCIUM 9.1 mg/dL (8.5-10.1)
[2023-11-06 14:04] LABS: URINE LEUK ESTERASE 3+ (NEGATIVE); URINE NITRITE POSITIVE (NEGATIVE); URINE PROTEIN TRACE (NEGATIVE); URINE UROBILINOGEN 0.2 mg/dL (0.2-1.0)
[2023-11-06 14:05] LABS: ALBUMIN 2.6 g/dl (3.4-5.0); BLOOD UREA NITROGEN 19.4 mg/dL (7-18); MAGNESIUM 1.9 mg/dL (1.8-2.4)
[2023-11-06 14:08] LABS: CREATININE 0.5 mg/dL (0.55-1.3)
[2023-11-06 14:10] LABS: BILIRUBIN,TOTAL 0.3 mg/dL (0.2-1); TOT PROT 6.3 g/dl (6.4-8.2)
[2023-11-06 14:12] LABS: URINE BACTERIA 2+ /uL (0-1359); URINE CRYSTALS TRIPLE PHOS 2+ /hpf
[2023-11-06] MEDS ORDERED: PIPERACILLIN/TAZOB 3.375 GM 3.375 GM/50 ML BAG IVPB ONE (15:21)
[2023-11-06] MEDS: PIPERACILLIN/TAZOB 3.375 GM 3.375 GM in DEXTROSE 5%-WATER - 50 ML IVPB ONE (15:24)
[2023-11-06] MEDS: D5-1/2NS+20 MEQ KCL - 20 MEQ/1,000 ML INFUS.BAG IV SCH (20:20)
[2023-11-06] MEDS: SCOPOLAMINE HYDROBROMIDE 1 PATCH PATCH.TD72 TD SCH (20:21)
[2023-11-06] MEDS: CEFTRIAXONE 1 GM in DEXTROSE 5%-WATER - 50 ML IVPB SCH (20:21)
[2023-11-06] MEDS ORDERED: levETIRAcetam 500 MG/5 ML ORAL SOLUTION (UNIT-DOSE CUPS) GT SCH (22:00)
[2023-11-06] MEDS: levETIRAcetam 500 MG/5 ML ORAL SOLUTION (UNIT-DOSE CUPS) GT SCH (22:52)
[2023-11-07] MEDS: LEVOTHYROXINE NA 88 MCG TABLET (FP) PEG SCH (06:57)
[2023-11-07 08:10] LABS: HEMATOCRIT 41.4 % (32.4-45.2); HEMOGLOBIN 13.3 GM/dL (10.7-15.3); LYMPH % 34.8 % (8-40); MCH 29.8 pg (25.7-33.7); MCHC 32.2 g/dl (32.0-36.0); MEAN CELL VOLUME 92.8 fl (80-96); MEAN PLT VOLUME 8.5 fl (7.5-11.1); MONO % 10.5 % (3.8-10.2); NEUT % 52.7 % (42.8-82.8); PLATELET COUNT 303 10^3/uL (134-434); RBC 4.47 M/mm3 (3.60-5.2); RDW 14.3 % (11.6-15.6); WHITE BLOOD COUNT 10.6 K/mm3 (4.0-10.0)
[2023-11-07 08:35] LABS: CALCIUM 9.5 mg/dL (8.5-10.1)
[2023-11-07 08:36] LABS: ALBUMIN 2.5 g/dl (3.4-5.0); BLOOD UREA NITROGEN 17.2 mg/dL (7-18); MAGNESIUM 1.9 mg/dL (1.8-2.4)
[2023-11-07 08:40] LABS: BILIRUBIN,TOTAL 0.3 mg/dL (0.2-1); CREATININE 0.6 mg/dL (0.55-1.3); PHOSPHOROUS 3.6 mg/dL (2.5-4.9); TOT PROT 6.2 g/dl (6.4-8.2)
[2023-11-07] MEDS: PANTOPRAZOLE SODIUM 40 MG VIAL IVPUSH SCH (11:22)
[2023-11-07] MEDS: PIPERACILLIN/TAZOB 2.25 GM 2.25 GM in DEXTROSE 5%-WATER - 50 ML IVPB SCH (18:41)
[2023-11-08] MEDS: MULTIVIT-MINERALS ORAL LIQUID GT SCH (10:35)
[2023-11-08] MEDS: ASCORBIC ACID 500 MG TABLET (FP) GT SCH (10:45)
[2023-11-09] MEDS ORDERED: PIPERACILLIN/TAZOBACTAM 2.25 GM VIAL IVPB ONE (03:50)
[2023-11-09] MEDS: AMINO ACIDS/PROTEIN HYDROLYS 30 ML LIQUID.PKT GT SCH (11:35)
[2023-11-10 07:16] VITALS: RESP 18
[2023-11-10 14:55] VITALS: BP 125/65; PULSE 78; TEMP 97.3
== END 2023-11-10 17:10 | DRG 101 ==
LOC: JER 11:32 → JERBED 15:50 → J4S 17:24 → OBSVTOIN 18:26
PROVIDERS: ADMIT Internal Medicine; ATTEND Internal Medicine
DX: G40.909 Epilepsy, unspecified, not intractable, without status epilepticus (principal); N39.0 Urinary tract infection, site not specified; E78.00 Pure hypercholesterolemia, unspecified; I10 Essential (primary) hypertension; E03.9 Hypothyroidism, unspecified; B96.4 Proteus (mirabilis) (morganii) as the cause of diseases classified elsewhere; Z93.1 Gastrostomy status
CPT/HCPCS: 36415; 70450-TC; 71045-TC-FY; 72170-TC-FY; 73030-TC-RT-FY; 73502-TC-RT-FY; 74176-TC; 80053; 80061; 80177; 81003; 82962; 83735; 84100; 84443; 84484; 85025; 85610; 85730; 86850; 86900; 86901; 87040; 87086; 87186; 87635; 93005; 93010; 99285-25; G0378

== ENCOUNTER 2024-01-13 13:28 | Emergency (ER) | payer OTHER ==
[2024-01-13 13:36] VITALS: BP 100/60; PULSE 101; RESP 18; TEMP 97.6; BMI 21.8
[2024-01-13] MEDS ORDERED: IBUPROFEN 100 MG/5 ML UNIT DOSE CUPS ONE (14:27)
[2024-01-13] MEDS: IBUPROFEN 100 MG/5 ML UNIT DOSE CUPS PO ONE (14:35)
[2024-01-13] MEDS ORDERED: PHENAZOPYRIDINE HCL 100 MG TABLET (FP) ONE (14:39)
[2024-01-13] MEDS: PHENAZOPYRIDINE HCL 100 MG TABLET (FP) PO ONE (15:06)
== END 2024-01-13 15:14 | disposition home or self-care (01) ==
LOC: FER 13:28
DX: N39.0 Urinary tract infection, site not specified (principal); R30.0 Dysuria; R10.30 Lower abdominal pain, unspecified
CPT/HCPCS: 81003; 81015; 87086; 87186; 99283-25

== ENCOUNTER 2024-01-20 00:04 | Emergency (ER) | payer OTHER ==
[2024-01-20 00:39] VITALS: BP 110/68; PULSE 75; RESP 16; BMI 21.8
== END 2024-01-20 02:46 | disposition home or self-care (01) ==
LOC: FER 00:04
PROC: 0D20XUZ Change Feeding Device in Upper Intestinal Tract, External Approach (ICD-10-PCS; principal; 2024-01-20)
DX: K94.23 Gastrostomy malfunction (principal)
CPT/HCPCS: 43762; 49450; 99283-25

== ENCOUNTER 2024-01-27 17:49 | Inpatient (IN) | payer OTHER ==
[2024-01-27] MEDS ORDERED: PIPERACILLIN/TAZOBACTAM 3.375 GM VIAL IVPB ONE (18:48)
[2024-01-27 18:49] LABS: HEMATOCRIT 39.6 % (32.4-45.2); HEMOGLOBIN 12.9 G/dL (10.7-15.3); MCH 30.4 pg (25.7-33.7); MCHC 32.5 g/dl (32.0-36.0); MEAN CELL VOLUME 93.5 fl (80-96); MEAN PLT VOLUME 7.1 fl (7.5-11.1); PLATELET COUNT 264.6 10^3/uL (134-434); RBC 4.23 10^6/uL (3.60-5.2); RDW 14.7 % (11.6-15.6)
[2024-01-27 18:53] LABS: AMORP PHOS MODERATE /hpf (NONE SEEN); EPITHELIAL CELLS 0-5 /hpf
[2024-01-27 18:54] LABS: TRIPLE PHOSPHATE CRYSTAL MODERATE /hpf (NONE SEEN)
[2024-01-27] MEDS: PIPERACILLIN/TAZOB 3.375 GM 3.375 GM in DEXTROSE 5%-WATER - 50 ML IVPB ONE (19:00)
[2024-01-27 19:11] LABS: ALBUMIN 3.1 g/dl (3.4-5.0); ALK PHOS 60 U/L (45-117); ANION GAP 7 mmol/L (4-13); BILIRUBIN,TOTAL 0.6 mg/dl (0.2-1); CHLORIDE 102 mmol/L (98-107); CO2 26 mmol/L (21-32); CREATININE 0.6 mg/dl (0.6-1.3); GLUCOSE,RANDOM 83 mg/dl (74-106); POTASSIUM 3.7 mmol/L (3.5-5.1); SGOT/AST 20 U/L (15-37); SGPT/ALT 12 U/L (7-52); SODIUM 135 mmol/L (136-145); TOT PROT 6.1 g/dl (6.4-8.2)
[2024-01-27] MEDS: POTASSIUM CHLORIDE TABS 20 MEQ TABLET.ER (FP) PO ONE (21:10)
[2024-01-27] MEDS: ENOXAPARIN NA (PORCINE) 40 MG/0.4 ML DISP.SYRIN SQ SCH (21:10)
[2024-01-27] MEDS: levETIRAcetam 500 MG/5 ML ORAL SOLUTION (UNIT-DOSE CUPS) GT SCH (21:13)
[2024-01-27] MEDS: ATORVASTATIN CA 20 MG TABLET (FP) PEG SCH (21:13)
[2024-01-27] MEDS: FAMOTIDINE 20 MG/2.5 ML ORAL LIQUID GT SCH (21:52)
[2024-01-28] MEDS: ONDANSETRON 4 MG/2 ML VIAL IVPUSH ONE (00:09)
[2024-01-28 01:23] VITALS: BMI 20.9
[2024-01-28] MEDS: PIPERACILLIN/TAZOB 3.375 GM 3.375 GM in DEXTROSE 5%-WATER - 50 ML IVPB SCH ×2 (01:38→02:55)
[2024-01-28] MEDS: METOCLOPRAMIDE HCL INJECTION 10 MG/2 ML VIAL IVPUSH ONE (03:19)
[2024-01-28] MEDS: LEVOTHYROXINE NA 88 MCG TABLET (FP) PEG SCH (06:17)
[2024-01-28 09:35] LABS: HEMATOCRIT 37.2 % (32.4-45.2); HEMOGLOBIN 11.8 G/dL (10.7-15.3); MCH 29.8 pg (25.7-33.7); MCHC 31.6 g/dl (32.0-36.0); MEAN CELL VOLUME 94.3 fl (80-96); PLATELET COUNT 303.1 10^3/uL (134-434); RBC 3.94 10^6/uL (3.60-5.2); RDW 14.8 % (11.6-15.6); WHITE BLOOD COUNT 8.2 10^3/uL (4.0-10.8)
[2024-01-28 09:52] LABS: ANION GAP 7 mmol/L (4-13); CALCIUM 8.6 mg/dl (8.5-10.1); CHLORIDE 103 mmol/L (98-107); CO2 28 mmol/L (21-32); CREATININE 0.7 mg/dl (0.6-1.3); GLUCOSE,RANDOM 120 mg/dl (74-106); POTASSIUM 4.1 mmol/L (3.5-5.1); SODIUM 138 mmol/L (136-145)
[2024-01-28] MEDS: LISINOPRIL 10 MG TABLET PEG SCH (10:03)
[2024-01-28] MEDS ORDERED: METOCLOPRAMIDE HCL INJECTION 10 MG/2 ML VIAL IVPUSH PRN (11:53)
[2024-01-28] MEDS: ACETAMINOPHEN 1000 MG/100 ML BAG IVPB PRN (12:05)
[2024-01-28] MEDS: NYSTATIN 100000 UNIT/GM TOPICAL OINTMENT 15 GM TUBE TP SCH (15:49)
[2024-01-29 08:48] LABS: ALBUMIN 2.8 g/dl (3.4-5.0); ALK PHOS 51 U/L (45-117); ANION GAP 6 mmol/L (4-13); BILIRUBIN,TOTAL 0.6 mg/dl (0.2-1); CALCIUM 8.5 mg/dl (8.5-10.1); CHLORIDE 106 mmol/L (98-107); CO2 26 mmol/L (21-32); CREATININE 0.8 mg/dl (0.6-1.3); GLUCOSE,RANDOM 93 mg/dl (74-106); POTASSIUM 3.7 mmol/L (3.5-5.1); SGOT/AST 17 U/L (15-37); SGPT/ALT 11 U/L (7-52); SODIUM 138 mmol/L (136-145); TOT PROT 5.3 g/dl (6.4-8.2)
[2024-01-29 09:13] LABS: BASO % 0.5 % (0-2.0); EOS % 0.7 % (0-4.5); HEMOGLOBIN 11.2 GM/dL (10.7-15.3); LYMPH % 18.2 % (8-40); MCH 29.8 pg (25.7-33.7); MCHC 32.9 g/dl (32.0-36.0); MEAN CELL VOLUME 90.6 fl (80-96); MEAN PLT VOLUME 7.6 fl (7.5-11.1); MONO % 5.5 % (3.8-10.2); NEUT % 75.1 % (42.8-82.8); PLATELET COUNT 280 10^3/uL (134-434); RBC 3.76 M/mm3 (3.60-5.2); RDW 14.8 % (11.6-15.6); WHITE BLOOD COUNT 12.4 K/mm3 (4.0-10.0)
[2024-01-30 07:48] LABS: POTASSIUM 3.5 mmol/L (3.5-5.1)
[2024-01-30 07:48] LABS: BASO % 0.6 % (0-2.0); EOS % 1.7 % (0-4.5); HEMATOCRIT 31.1 % (32.4-45.2); HEMOGLOBIN 10.6 GM/dL (10.7-15.3); LYMPH % 24.7 % (8-40); MCH 31.2 pg (25.7-33.7); MEAN CELL VOLUME 91.6 fl (80-96); MEAN PLT VOLUME 7.7 fl (7.5-11.1); MONO % 12.3 % (3.8-10.2); NEUT % 60.7 % (42.8-82.8); PLATELET COUNT 236 10^3/uL (134-434); RDW 14.5 % (11.6-15.6); WHITE BLOOD COUNT 7.9 K/mm3 (4.0-10.0)
[2024-01-30 07:52] LABS: BLOOD UREA NITROGEN 22.2 mg/dL (7-18); CALCIUM 7.8 mg/dL (8.5-10.1)
[2024-01-30 07:53] LABS: ALBUMIN 2.2 g/dl (3.4-5.0)
[2024-01-30 07:56] LABS: CREATININE 0.6 mg/dL (0.55-1.3)
[2024-01-30 07:57] LABS: BILIRUBIN,TOTAL 0.6 mg/dL (0.2-1); TOT PROT 5.2 g/dl (6.4-8.2)
[2024-01-30] MEDS: MEROPENEM 1 GM in DEXTROSE 5%-WATER 100 ML IVPB SCH (13:48)
[2024-01-30 18:33] LABS: URINE APPEARANCE CLOUDY; URINE BILIRUBIN NEGATIVE (NEGATIVE); URINE COLOR YELLOW; URINE GLUCOSE (UA) NEGATIVE (NEGATIVE); URINE KETONE NEGATIVE (NEGATIVE); URINE LEUK ESTERASE 2+ (NEGATIVE); URINE NITRITE NEGATIVE (NEGATIVE); URINE PROTEIN 2+ (NEGATIVE)
[2024-01-30 22:36] LABS: EPI CELLS 73.2 /uL (0-25.1); HYALINE CASTS 0.58 /uL (0-3.1); URINE BACTERIA 175.7 /uL (0-1359); URINE CRYSTALS NONE SEEN /hpf; URINE RBC 143.2 /uL (0-23.9); URINE WBC 60.9 /uL (0-25.8)
[2024-01-31] MEDS: PIPERACILLIN/TAZOB 3.375 GM 3.375 GM in DEXTROSE 5%-WATER - 50 ML IVPB SCH (11:00)
[2024-01-31] MEDS: MEROPENEM 1 GM in DEXTROSE 5%-WATER 100 ML IVPB ONE (11:00)
[2024-02-01] MEDS: VANCOMYCIN ORAL SOLUTION 125 MG/2.5 ML GT SCH (00:11)
[2024-02-01 08:23] LABS: BASO % 0.8 % (0-2.0); HEMATOCRIT 35.3 % (32.4-45.2); HEMOGLOBIN 11.7 GM/dL (10.7-15.3); LYMPH % 34.4 % (8-40); MCH 30.5 pg (25.7-33.7); MCHC 33.2 g/dl (32.0-36.0); MEAN CELL VOLUME 91.9 fl (80-96); MEAN PLT VOLUME 7.6 fl (7.5-11.1); MONO % 13.8 % (3.8-10.2); PLATELET COUNT 295 10^3/uL (134-434); RBC 3.84 M/mm3 (3.60-5.2); RDW 14.5 % (11.6-15.6); WHITE BLOOD COUNT 6.6 K/mm3 (4.0-10.0)
[2024-02-01 08:43] LABS: ALBUMIN 2.1 g/dl (3.4-5.0); BLOOD UREA NITROGEN 13.9 mg/dL (7-18); CALCIUM 8.4 mg/dL (8.5-10.1); MAGNESIUM 1.9 mg/dL (1.8-2.4)
[2024-02-01 08:46] LABS: CREATININE 0.4 mg/dL (0.55-1.3)
[2024-02-01 08:48] LABS: BILIRUBIN,TOTAL 0.5 mg/dL (0.2-1); TOT PROT 5.4 g/dl (6.4-8.2)
[2024-02-01] MEDS: AMINO ACIDS/PROTEIN HYDROLYS 30 ML LIQUID.PKT GT SCH (17:38)
[2024-02-02 09:21] LABS: BASO % 0.5 % (0-2.0); EOS % 2.1 % (0-4.5); HEMOGLOBIN 11.9 GM/dL (10.7-15.3); LYMPH % 41.6 % (8-40); MCH 29.6 pg (25.7-33.7); MEAN CELL VOLUME 92.3 fl (80-96); MEAN PLT VOLUME 7.3 fl (7.5-11.1); MONO % 9.8 % (3.8-10.2); PLATELET COUNT 350 10^3/uL (134-434); RBC 4.01 M/mm3 (3.60-5.2); RDW 14.4 % (11.6-15.6); WHITE BLOOD COUNT 7.8 K/mm3 (4.0-10.0)
[2024-02-02 09:28] LABS: POTASSIUM 4.7 mmol/L (3.5-5.1)
[2024-02-02 09:30] LABS: CALCIUM 8.7 mg/dL (8.5-10.1)
[2024-02-02 09:31] LABS: ALBUMIN 2.2 g/dl (3.4-5.0); BLOOD UREA NITROGEN 14.7 mg/dL (7-18); MAGNESIUM 2.1 mg/dL (1.8-2.4)
[2024-02-02 09:34] LABS: CREATININE 0.5 mg/dL (0.55-1.3)
[2024-02-02 09:35] LABS: TOT PROT 5.7 g/dl (6.4-8.2)
[2024-02-02 09:36] LABS: BILIRUBIN,TOTAL 0.3 mg/dL (0.2-1)
[2024-02-02] MEDS: SCOPOLAMINE HYDROBROMIDE 1 PATCH PATCH.TD72 TD SCH (12:34)
[2024-02-03 10:30] LABS: BASO % 0.8 % (0-2.0); EOS % 2.5 % (0-4.5); HEMATOCRIT 35.3 % (32.4-45.2); HEMOGLOBIN 11.8 GM/dL (10.7-15.3); LYMPH % 37.2 % (8-40); MCH 30.3 pg (25.7-33.7); MCHC 33.4 g/dl (32.0-36.0); MEAN CELL VOLUME 90.7 fl (80-96); MEAN PLT VOLUME 7.1 fl (7.5-11.1); MONO % 13.5 % (3.8-10.2); PLATELET COUNT 345 10^3/uL (134-434); RBC 3.89 M/mm3 (3.60-5.2); RDW 14.5 % (11.6-15.6); WHITE BLOOD COUNT 7.3 K/mm3 (4.0-10.0)
[2024-02-03 10:50] LABS: POTASSIUM 4.4 mmol/L (3.5-5.1)
[2024-02-03 10:55] LABS: ALBUMIN 2.2 g/dl (3.4-5.0); BLOOD UREA NITROGEN 20.1 mg/dL (7-18); CALCIUM 8.6 mg/dL (8.5-10.1)
[2024-02-03 10:58] LABS: CREATININE 0.5 mg/dL (0.55-1.3)
[2024-02-03 10:59] LABS: TOT PROT 5.6 g/dl (6.4-8.2)
[2024-02-03 11:00] LABS: BILIRUBIN,TOTAL 0.2 mg/dL (0.2-1)
[2024-02-05] MEDS: METOCLOPRAMIDE HCL INJECTION 10 MG/2 ML VIAL IVPUSH SCH (13:23)
[2024-02-05] MEDS: ACETAMINOPHEN 650 MG/20.3 ML ORAL SOLUTION (CUPS) PO PRN (17:59)
[2024-02-06 05:01] LABS: EPI CELLS >36 /uL (0-25.1); HYALINE CASTS 1 /uL (0-3.1); URINE APPEARANCE TURBID; URINE BACTERIA 6 /uL (0-1359); URINE BILIRUBIN NEGATIVE (NEGATIVE); URINE COLOR YELLOW; URINE GLUCOSE (UA) NEGATIVE (NEGATIVE); URINE KETONE NEGATIVE (NEGATIVE); URINE LEUK ESTERASE TRACE (NEGATIVE); URINE NITRITE NEGATIVE (NEGATIVE); URINE PROTEIN 1+ (NEGATIVE); URINE RBC 15 /uL (0-23.9); URINE UROBILINOGEN 0.2 mg/dL (0.2-1.0); URINE WBC 72 /uL (0-25.8)
[2024-02-06 08:06] LABS: BASO % 0.6 % (0-2.0); EOS % 2.9 % (0-4.5); HEMATOCRIT 33.4 % (32.4-45.2); LYMPH % 40.1 % (8-40); MCH 30.3 pg (25.7-33.7); MEAN CELL VOLUME 91.8 fl (80-96); MEAN PLT VOLUME 6.9 fl (7.5-11.1); MONO % 13.5 % (3.8-10.2); NEUT % 42.9 % (42.8-82.8); PLATELET COUNT 385 10^3/uL (134-434); RBC 3.64 M/mm3 (3.60-5.2); RDW 14.5 % (11.6-15.6); WHITE BLOOD COUNT 6.9 K/mm3 (4.0-10.0)
[2024-02-06 08:18] LABS: POTASSIUM 4.1 mmol/L (3.5-5.1)
[2024-02-06 08:22] LABS: CALCIUM 8.3 mg/dL (8.5-10.1)
[2024-02-06 08:23] LABS: ALBUMIN 2.2 g/dl (3.4-5.0); BLOOD UREA NITROGEN 29.8 mg/dL (7-18); MAGNESIUM 2.3 mg/dL (1.8-2.4)
[2024-02-06 08:26] LABS: CREATININE 0.5 mg/dL (0.55-1.3)
[2024-02-06 08:27] LABS: BILIRUBIN,TOTAL 0.4 mg/dL (0.2-1); TOT PROT 5.6 g/dl (6.4-8.2)
[2024-02-07 08:18] LABS: BASO % 0.6 % (0-2.0); EOS % 1.4 % (0-4.5); HEMATOCRIT 33.1 % (32.4-45.2); LYMPH % 21.2 % (8-40); MCH 30.8 pg (25.7-33.7); MCHC 33.4 g/dl (32.0-36.0); MEAN CELL VOLUME 92.2 fl (80-96); MONO % 9.9 % (3.8-10.2); NEUT % 66.9 % (42.8-82.8); PLATELET COUNT 379 10^3/uL (134-434); RBC 3.58 M/mm3 (3.60-5.2); RDW 14.5 % (11.6-15.6)
[2024-02-07 08:29] LABS: POTASSIUM 4.3 mmol/L (3.5-5.1)
[2024-02-07 08:37] LABS: ALBUMIN 2.2 g/dl (3.4-5.0); BLOOD UREA NITROGEN 28.4 mg/dL (7-18); CALCIUM 7.9 mg/dL (8.5-10.1); MAGNESIUM 2.4 mg/dL (1.8-2.4)
[2024-02-07 08:39] LABS: CREATININE 0.4 mg/dL (0.55-1.3)
[2024-02-07 08:41] LABS: BILIRUBIN,TOTAL 0.2 mg/dL (0.2-1); TOT PROT 5.5 g/dl (6.4-8.2)
[2024-02-07] MEDS: LACTOBACILLUS ACIDOPHILUS 1 TABLET PO SCH (17:53)
[2024-02-08 08:33] LABS: POTASSIUM 4.3 mmol/L (3.5-5.1)
[2024-02-08 08:35] LABS: BASO % 0.7 % (0-2.0); HEMATOCRIT 32.3 % (32.4-45.2); HEMOGLOBIN 10.7 GM/dL (10.7-15.3); LYMPH % 33.7 % (8-40); MCH 30.5 pg (25.7-33.7); MCHC 32.9 g/dl (32.0-36.0); MEAN CELL VOLUME 92.5 fl (80-96); MEAN PLT VOLUME 6.9 fl (7.5-11.1); NEUT % 50.6 % (42.8-82.8); PLATELET COUNT 372 10^3/uL (134-434); RDW 14.8 % (11.6-15.6); WHITE BLOOD COUNT 8.7 K/mm3 (4.0-10.0)
[2024-02-08 08:48] LABS: ALBUMIN 2.2 g/dl (3.4-5.0); BLOOD UREA NITROGEN 25.6 mg/dL (7-18); CALCIUM 8.2 mg/dL (8.5-10.1)
[2024-02-08 08:49] LABS: MAGNESIUM 2.4 mg/dL (1.8-2.4)
[2024-02-08 08:51] LABS: CREATININE 0.5 mg/dL (0.55-1.3)
[2024-02-08 08:52] LABS: TOT PROT 5.6 g/dl (6.4-8.2)
[2024-02-08 08:53] LABS: BILIRUBIN,TOTAL 0.3 mg/dL (0.2-1)
[2024-02-08 21:36] VITALS: RESP 18
[2024-02-09 07:43] VITALS: BP 114/52; PULSE 78; TEMP 98.1
[2024-02-09 09:31] LABS: BASO % 0.9 % (0-2.0); EOS % 1.8 % (0-4.5); HEMATOCRIT 35.3 % (32.4-45.2); HEMOGLOBIN 11.6 GM/dL (10.7-15.3); LYMPH % 21.8 % (8-40); MCH 30.4 pg (25.7-33.7); MCHC 32.8 g/dl (32.0-36.0); MEAN CELL VOLUME 92.5 fl (80-96); MEAN PLT VOLUME 6.8 fl (7.5-11.1); MONO % 9.6 % (3.8-10.2); NEUT % 65.9 % (42.8-82.8); PLATELET COUNT 405 10^3/uL (134-434); RBC 3.82 M/mm3 (3.60-5.2); RDW 14.5 % (11.6-15.6); WHITE BLOOD COUNT 8.8 K/mm3 (4.0-10.0)
[2024-02-09 09:52] LABS: POTASSIUM 4.4 mmol/L (3.5-5.1)
[2024-02-09 10:04] LABS: CALCIUM 8.4 mg/dL (8.5-10.1)
[2024-02-09 10:05] LABS: ALBUMIN 2.4 g/dl (3.4-5.0); BLOOD UREA NITROGEN 25.3 mg/dL (7-18)
[2024-02-09 10:06] LABS: MAGNESIUM 2.5 mg/dL (1.8-2.4)
[2024-02-09 10:08] LABS: CREATININE 0.4 mg/dL (0.55-1.3)
[2024-02-09 10:09] LABS: BILIRUBIN,TOTAL 0.4 mg/dL (0.2-1); TOT PROT 6.1 g/dl (6.4-8.2)
== END 2024-02-09 11:03 | disposition home health service (06) | DRG 689 ==
LOC: SUPCPDRO 17:49 → FER 17:49 → FM/S 19:55 → OBSVTOIN 20:00 → J8W 01-29 13:44
PROVIDERS: ADMIT Internal Medicine; ATTEND Nurse Practitioner Family
DX: N39.0 Urinary tract infection, site not specified (principal); L89.153 Pressure ulcer of sacral region, stage 3; A04.72 Enterocolitis due to Clostridium difficile, not specified as recurrent; E87.1 Hypo-osmolality and hyponatremia; E44.0 Moderate protein-calorie malnutrition; B96.4 Proteus (mirabilis) (morganii) as the cause of diseases classified elsewhere; I10 Essential (primary) hypertension; E78.5 Hyperlipidemia, unspecified; E03.9 Hypothyroidism, unspecified; G40.909 Epilepsy, unspecified, not intractable, without status epilepticus; Z93.1 Gastrostomy status; N31.9 Neuromuscular dysfunction of bladder, unspecified; R26.81 Unsteadiness on feet; R13.19 Other dysphagia; R29.6 Repeated falls; R80.9 Proteinuria, unspecified; Z68.20 Body mass index [BMI] 20.0-20.9, adult
CPT/HCPCS: 36415; 74230-TC-FY; 80048; 80053; 81003; 81015; 83735; 85025; 85027; 87040; 87086; 87186; 87324; 87449; 87493; 92611-GN; 93005; 97116-GP; 97161-GP; 99285-25; G0378; J0131

== ENCOUNTER 2024-04-24 22:32 | Inpatient (IN) | payer OTHER ==
[2024-04-25 01:29] LABS: HEMATOCRIT 39.5 % (32.4-45.2); HEMOGLOBIN 13.2 GM/dL (10.7-15.3); MCHC 33.4 g/dl (32.0-36.0); MEAN CELL VOLUME 89.7 fl (80-96); MEAN PLT VOLUME 7.2 fl (7.5-11.1); PLATELET COUNT 344 10^3/uL (134-434); RDW 14.2 % (11.6-15.6); WHITE BLOOD COUNT 8.2 K/mm3 (4.0-10.0)
[2024-04-25 01:52] LABS: POTASSIUM 3.6 mmol/L (3.5-5.1)
[2024-04-25 01:54] LABS: ALBUMIN 3.3 g/dl (3.4-5.0); BLOOD UREA NITROGEN 17.7 mg/dL (7-18); CALCIUM 9.3 mg/dL (8.5-10.1)
[2024-04-25 01:55] LABS: MAGNESIUM 2.1 mg/dL (1.8-2.4)
[2024-04-25 01:59] LABS: BILIRUBIN,TOTAL 0.4 mg/dL (0.2-1); CREATININE 0.7 mg/dL (0.55-1.3); TOT PROT 7.2 g/dl (6.4-8.2)
[2024-04-25] MEDS ORDERED: cefTRIAXone SODIUM 1 GM VIAL ONE (03:56)
[2024-04-25] MEDS: CEFTRIAXONE 1,000 MG in DEXTROSE 5%-WATER - 50 ML IVPB ONE (04:06)
[2024-04-25] MEDS: ERTAPENEM SODIUM 1 GM/50 ML PRE-DOCKED IVPB SCH (06:30)
[2024-04-25] MEDS: VANCOMYCIN ORAL SOLUTION 125 MG/2.5 ML GT SCH ×2 (06:31→09:43)
[2024-04-25] MEDS: LEVOTHYROXINE NA 88 MCG TABLET (FP) PEG SCH (06:48)
[2024-04-25 07:10] VITALS: BMI 20.5
[2024-04-25 08:35] LABS: ALBUMIN 3.5 g/dl (3.4-5.0); BILIRUBIN,TOTAL 0.3 mg/dl (0.2-1); CALCIUM 9.4 mg/dl (8.5-10.1); CREATININE 0.7 mg/dl (0.6-1.3); POTASSIUM 3.9 mmol/L (3.5-5.1); TOT PROT 6.6 g/dl (6.4-8.2)
[2024-04-25] MEDS: AMINO ACIDS/PROTEIN HYDROLYS 30 ML LIQUID.PKT GT SCH (09:14)
[2024-04-25] MEDS: levETIRAcetam 500 MG/5 ML ORAL SOLUTION (UNIT-DOSE CUPS) GT SCH (09:14)
[2024-04-25] MEDS: LISINOPRIL 5 MG TABLET GT SCH (09:14)
[2024-04-25] MEDS: ENOXAPARIN NA (PORCINE) 40 MG/0.4 ML DISP.SYRIN SQ SCH (09:14)
[2024-04-25] MEDS: FAMOTIDINE 20 MG/2.5 ML ORAL LIQUID GT SCH (09:44)
[2024-04-25] MEDS: NYSTATIN 100,000 UNIT/GM TOPICAL CREAM 15 GM TUBE TP SCH (09:46)
[2024-04-25 13:29] LABS: BASO % 0.6 % (0-2.0); EOS % 0.5 % (0-4.5); HEMATOCRIT 39.2 % (32.4-45.2); LYMPH % 28.1 % (8-40); MCH 29.8 pg (25.7-33.7); MCHC 33.3 g/dl (32.0-36.0); MEAN CELL VOLUME 89.6 fl (80-96); MEAN PLT VOLUME 7.3 fl (7.5-11.1); MONO % 10.6 % (3.8-10.2); NEUT % 60.2 % (42.8-82.8); PLATELET COUNT 346 10^3/uL (134-434); RBC 4.37 M/mm3 (3.60-5.2); RDW 13.8 % (11.6-15.6); WHITE BLOOD COUNT 8.9 K/mm3 (4.0-10.0)
[2024-04-25] MEDS: ATORVASTATIN CA 20 MG TABLET (FP) GT SCH (21:08)
[2024-04-26] MEDS: ERTAPENEM SODIUM 1 GM in SODIUM CHLORIDE 50 ML IVPB SCH (06:24)
[2024-04-26] MEDS ORDERED: REFRIGERATED ANITBIOTICS ONE (09:46)
[2024-04-27 09:32] LABS: CALCIUM 8.6 mg/dl (8.5-10.1); CREATININE 0.7 mg/dl (0.6-1.3); MAGNESIUM 1.6 mg/dL (1.8-2.4); PHOSPHOROUS 3.4 (2.5-4.9); POTASSIUM 4.8 mmol/L (3.5-5.1)
[2024-04-27] MEDS ORDERED: LACTOBACILLUS ACIDOPHILUS 1 TABLET PO SCH (10:00)
[2024-04-27] MEDS: LACTOBACILLUS ACIDOPHILUS 1 TABLET GT SCH (10:01)
[2024-04-27] MEDS ORDERED: REFRIGERATED ANITBIOTICS ONE (10:13)
[2024-04-27 11:18] LABS: BASO % 0.6 % (0-2.0); EOS % 1.4 % (0-4.5); HEMATOCRIT 36.1 % (32.4-45.2); HEMOGLOBIN 11.8 GM/dL (10.7-15.3); LYMPH % 40.5 % (8-40); MCH 29.8 pg (25.7-33.7); MCHC 32.6 g/dl (32.0-36.0); MEAN CELL VOLUME 91.5 fl (80-96); MEAN PLT VOLUME 7.4 fl (7.5-11.1); MONO % 11.5 % (3.8-10.2); PLATELET COUNT 349 10^3/uL (134-434); RBC 3.94 M/mm3 (3.60-5.2); RDW 13.9 % (11.6-15.6); WHITE BLOOD COUNT 7.4 K/mm3 (4.0-10.0)
[2024-04-27] MEDS: levETIRAcetam 500 MG/5 ML ORAL SOLUTION (UNIT-DOSE CUPS) GT SCH (21:27)
[2024-04-28] MEDS: BANATROL PLUS POWDER PACKET GT SCH (06:46)
[2024-04-28] MEDS: MAGNESIUM SULF 50% (8.12 MEQ/2 ML-1 GM VIAL) IVPB ONE (08:57)
[2024-04-28] MEDS: VALPROATE SODIUM 250 MG/5 ML UNIT DOSE CUP GT SCH (09:31)
[2024-04-28] MEDS: DIVALPROEX SODIUM 250 MG TABLET E.C. PO SCH (12:47)
[2024-04-29 08:19] LABS: HEMATOCRIT 37.3 % (32.4-45.2); HEMOGLOBIN 11.9 G/dL (10.7-15.3); MCH 29.5 pg (25.7-33.7); MCHC 31.8 g/dl (32.0-36.0); MEAN CELL VOLUME 92.9 fl (80-96); MEAN PLT VOLUME 7.2 fl (7.5-11.1); PLATELET COUNT 310.2 10^3/uL (134-434); RBC 4.02 10^6/uL (3.60-5.2); RDW 14.4 % (11.6-15.6); WHITE BLOOD COUNT 11.3 10^3/uL (4.0-10.8)
[2024-04-29 09:03] LABS: CALCIUM 8.6 mg/dl (8.5-10.1); CREATININE 0.6 mg/dl (0.6-1.3); MAGNESIUM 1.9 mg/dL (1.8-2.4); PHOSPHOROUS 3.1 (2.5-4.9); POTASSIUM 3.8 mmol/L (3.5-5.1)
[2024-04-30 09:17] LABS: CALCIUM 8.8 mg/dl (8.5-10.1); CREATININE 0.5 mg/dl (0.6-1.3); MAGNESIUM 1.9 mg/dL (1.8-2.4); PHOSPHOROUS 2.6 (2.5-4.9); POTASSIUM 3.8 mmol/L (3.5-5.1)
[2024-04-30 09:52] LABS: BASO % 0.4 % (0-2.0); EOS % 0.7 % (0-4.5); HEMATOCRIT 37.4 % (32.4-45.2); HEMOGLOBIN 12.3 GM/dL (10.7-15.3); LYMPH % 30.2 % (8-40); MCH 29.9 pg (25.7-33.7); MCHC 32.9 g/dl (32.0-36.0); MEAN CELL VOLUME 90.9 fl (80-96); MEAN PLT VOLUME 6.9 fl (7.5-11.1); MONO % 9.3 % (3.8-10.2); NEUT % 59.4 % (42.8-82.8); PLATELET COUNT 351 10^3/uL (134-434); RBC 4.11 M/mm3 (3.60-5.2); RDW 14.1 % (11.6-15.6); WHITE BLOOD COUNT 8.4 K/mm3 (4.0-10.0)
[2024-05-01 06:39] VITALS: RESP 18; TEMP 97.2
[2024-05-01 09:21] VITALS: BP 125/59; PULSE 89
== END 2024-05-01 11:55 | disposition home or self-care (01) | DRG 100 ==
LOC: FER 22:32 → FM/S 04-25 03:36 → UNDOADMIN 04-25 04:28 → FM/S 04-25 04:28
PROVIDERS: ADMIT Internal Medicine
DX: G40.909 Epilepsy, unspecified, not intractable, without status epilepticus (principal); E43 Unspecified severe protein-calorie malnutrition; F03.90 Unspecified dementia, unspecified severity, without behavioral disturbance, psychotic disturbance, mood disturbance, and anxiety; I10 Essential (primary) hypertension; E78.5 Hyperlipidemia, unspecified; E03.9 Hypothyroidism, unspecified; Z68.20 Body mass index [BMI] 20.0-20.9, adult
CPT/HCPCS: 0241U-QW; 36415; 70450-TC; 71045-TC-FY; 76775-TC; 76856-TC; 80048; 80053; 80164; 80177; 81003; 81015; 82962; 83735; 84100; 85025; 85027; 87086; 93005; 97116-GP; 97162-GP; 99285-25

== ENCOUNTER 2024-05-02 08:47 | Inpatient (IN) | payer OTHER ==
[2024-05-02 09:13] VITALS: BMI 22.6
[2024-05-02 10:34] LABS: BASO % 0.5 % (0-2.0); EOS % 0.6 % (0-4.5); HEMATOCRIT 36.6 % (32.4-45.2); HEMOGLOBIN 12.2 GM/dL (10.7-15.3); LYMPH % 23.2 % (8-40); MCH 29.8 pg (25.7-33.7); MCHC 33.2 g/dl (32.0-36.0); MEAN CELL VOLUME 89.6 fl (80-96); MEAN PLT VOLUME 6.5 fl (7.5-11.1); MONO % 9.7 % (3.8-10.2); PLATELET COUNT 358 10^3/uL (134-434); RBC 4.08 M/mm3 (3.60-5.2); RDW 14.2 % (11.6-15.6); WHITE BLOOD COUNT 9.8 K/mm3 (4.0-10.0)
[2024-05-02 10:41] LABS: INR 0.92 (0.83-1.09); PROTHROMBIN TIME (PATIENT) 10.6 SEC (9.7-13.0)
[2024-05-02 11:02] LABS: POTASSIUM 4.6 mmol/L (3.5-5.1)
[2024-05-02 11:04] LABS: ALBUMIN 2.7 g/dl (3.4-5.0); CALCIUM 8.9 mg/dL (8.5-10.1)
[2024-05-02 11:05] LABS: BLOOD UREA NITROGEN 20.9 mg/dL (7-18)
[2024-05-02 11:09] LABS: BILIRUBIN,TOTAL 0.6 mg/dL (0.2-1); CREATININE 0.5 mg/dL (0.55-1.3); TOT PROT 6.6 g/dl (6.4-8.2)
[2024-05-02 11:51] LABS: EPI CELLS 4 /uL (0-25.1); HYALINE CASTS 1 /uL (0-3.1); URINE APPEARANCE CLOUDY; URINE BACTERIA >9,000 /uL (0-1359); URINE BILIRUBIN NEGATIVE (NEGATIVE); URINE COLOR YELLOW; URINE GLUCOSE (UA) NEGATIVE (NEGATIVE); URINE KETONE TRACE (NEGATIVE); URINE LEUK ESTERASE 3+ (NEGATIVE); URINE NITRITE NEGATIVE (NEGATIVE); URINE PROTEIN 2+ (NEGATIVE); URINE RBC 538 /uL (0-23.9); URINE WBC 2604 /uL (0-25.8)
[2024-05-02] MEDS ORDERED: ERTAPENEM SODIUM 1 GM VIAL ONE (12:19)
[2024-05-02] MEDS: ERTAPENEM SODIUM 1 GM in SODIUM CHLORIDE 50 ML IVPB ONE (12:26)
[2024-05-02] MEDS: DEXTROSE 50%-WATER 25 GM/50 ML DISP.SYRIN IVPUSH ONE (13:05)
[2024-05-02] MEDS: levETIRAcetam 500 MG/5 ML INJECTION VIAL IVPB SCH (15:08)
[2024-05-02] MEDS: DIVALPROEX SODIUM 500 MG TABLET E.C. PO SCH (15:24)
[2024-05-02] MEDS: SODIUM CHLORIDE 1,000 ML IV SCH (17:24)
[2024-05-02] MEDS ORDERED: VALPROATE SODIUM 500 MG/5 ML VIAL IVPB SCH (18:00)
[2024-05-02] MEDS: VALPROATE SODIUM INJECTION 500 MG in SODIUM CHLORIDE 100 ML IVPB SCH (18:12)
[2024-05-02] MEDS: NYSTATIN 100,000 UNIT/GM TOPICAL CREAM 15 GM TUBE TP SCH (21:33)
[2024-05-03 08:52] LABS: HEMOGLOBIN 11.3 GM/dL (10.7-15.3); MCH 30.1 pg (25.7-33.7); MCHC 33.4 g/dl (32.0-36.0); MEAN CELL VOLUME 90.2 fl (80-96); PLATELET COUNT 360 10^3/uL (134-434); RBC 3.77 M/mm3 (3.60-5.2); WHITE BLOOD COUNT 9.3 K/mm3 (4.0-10.0)
[2024-05-03 09:15] LABS: CALCIUM 8.6 mg/dL (8.5-10.1)
[2024-05-03 09:17] LABS: BLOOD UREA NITROGEN 17.8 mg/dL (7-18)
[2024-05-03 09:20] LABS: CREATININE 0.4 mg/dL (0.55-1.3); PHOSPHOROUS 3.7 mg/dL (2.5-4.9)
[2024-05-03] MEDS: ERTAPENEM SODIUM 1 GM in SODIUM CHLORIDE 50 ML IVPB SCH (09:49)
[2024-05-03] MEDS: ENOXAPARIN NA (PORCINE) 40 MG/0.4 ML DISP.SYRIN SQ SCH (09:50)
[2024-05-04 08:13] LABS: HEMATOCRIT 32.2 % (32.4-45.2); HEMOGLOBIN 10.6 GM/dL (10.7-15.3); MCH 29.9 pg (25.7-33.7); MCHC 32.9 g/dl (32.0-36.0); MEAN CELL VOLUME 90.9 fl (80-96); MEAN PLT VOLUME 6.9 fl (7.5-11.1); PLATELET COUNT 344 10^3/uL (134-434); RBC 3.54 M/mm3 (3.60-5.2); RDW 14.2 % (11.6-15.6); WHITE BLOOD COUNT 7.8 K/mm3 (4.0-10.0)
[2024-05-04 08:20] LABS: POTASSIUM 3.5 mmol/L (3.5-5.1)
[2024-05-04 08:22] LABS: CALCIUM 8.2 mg/dL (8.5-10.1)
[2024-05-04 08:23] LABS: BLOOD UREA NITROGEN 12.6 mg/dL (7-18)
[2024-05-04 08:26] LABS: CREATININE 0.3 mg/dL (0.55-1.3)
[2024-05-04] MEDS: NITROFURANTOIN MONOHYD/M-CRYST 100 MG CAPSULE PO SCH (20:58)
[2024-05-05 08:17] LABS: BASO % 0.8 % (0-2.0); EOS % 2.9 % (0-4.5); HEMATOCRIT 30.8 % (32.4-45.2); HEMOGLOBIN 10.3 GM/dL (10.7-15.3); LYMPH % 27.9 % (8-40); MCH 30.4 pg (25.7-33.7); MCHC 33.3 g/dl (32.0-36.0); MEAN CELL VOLUME 91.3 fl (80-96); MEAN PLT VOLUME 6.8 fl (7.5-11.1); MONO % 11.4 % (3.8-10.2); PLATELET COUNT 318 10^3/uL (134-434); RBC 3.37 M/mm3 (3.60-5.2); RDW 14.3 % (11.6-15.6); WHITE BLOOD COUNT 7.6 K/mm3 (4.0-10.0)
[2024-05-05 08:22] LABS: POTASSIUM 3.4 mmol/L (3.5-5.1)
[2024-05-05 08:26] LABS: CALCIUM 7.7 mg/dL (8.5-10.1)
[2024-05-05 08:27] LABS: BLOOD UREA NITROGEN 12.4 mg/dL (7-18)
[2024-05-05 08:29] LABS: CREATININE 0.3 mg/dL (0.55-1.3)
[2024-05-05 08:31] LABS: BILIRUBIN,TOTAL 0.3 mg/dL (0.2-1); TOT PROT 4.9 g/dl (6.4-8.2)
[2024-05-05] MEDS: POTASSIUM CHLORIDE ORAL LIQUID 20 MEQ/15 ML PO ONE (12:03)
[2024-05-05] MEDS: LACTOBACILLUS ACIDOPHILUS 1 TABLET PEG SCH (15:20)
[2024-05-05] MEDS: VANCOMYCIN ORAL SOLUTION 125 MG/2.5 ML PO SCH (17:38)
[2024-05-06 08:23] LABS: POTASSIUM 3.7 mmol/L (3.5-5.1)
[2024-05-06 08:26] LABS: ALBUMIN 2.2 g/dl (3.4-5.0); CALCIUM 8.3 mg/dL (8.5-10.1)
[2024-05-06 08:27] LABS: BLOOD UREA NITROGEN 12.5 mg/dL (7-18)
[2024-05-06 08:29] LABS: BASO % 0.5 % (0-2.0); CREATININE 0.3 mg/dL (0.55-1.3); HEMATOCRIT 35.1 % (32.4-45.2); HEMOGLOBIN 11.4 GM/dL (10.7-15.3); LYMPH % 25.1 % (8-40); MCHC 32.5 g/dl (32.0-36.0); MEAN CELL VOLUME 92.4 fl (80-96); MONO % 8.4 % (3.8-10.2); PLATELET COUNT 389 10^3/uL (134-434); RDW 14.2 % (11.6-15.6); WHITE BLOOD COUNT 11.1 K/mm3 (4.0-10.0)
[2024-05-06 08:31] LABS: BILIRUBIN,TOTAL 0.4 mg/dL (0.2-1); TOT PROT 5.7 g/dl (6.4-8.2)
[2024-05-06] MEDS: PIPERACILLIN/TAZOB 3.375 GM 3.375 GM in DEXTROSE 5%-WATER - 50 ML IVPB SCH (18:26)
[2024-05-07 08:30] LABS: BASO % 0.8 % (0-2.0); EOS % 1.8 % (0-4.5); HEMOGLOBIN 10.6 GM/dL (10.7-15.3); LYMPH % 28.2 % (8-40); MCH 30.2 pg (25.7-33.7); MCHC 33.2 g/dl (32.0-36.0); MEAN CELL VOLUME 90.8 fl (80-96); MEAN PLT VOLUME 6.9 fl (7.5-11.1); MONO % 8.8 % (3.8-10.2); NEUT % 60.4 % (42.8-82.8); PLATELET COUNT 368 10^3/uL (134-434); RBC 3.52 M/mm3 (3.60-5.2); WHITE BLOOD COUNT 7.5 K/mm3 (4.0-10.0)
[2024-05-07 08:35] LABS: POTASSIUM 3.4 mmol/L (3.5-5.1)
[2024-05-07 08:38] LABS: BLOOD UREA NITROGEN 7.9 mg/dL (7-18); MAGNESIUM 1.9 mg/dL (1.8-2.4)
[2024-05-07 08:41] LABS: CREATININE 0.4 mg/dL (0.55-1.3)
[2024-05-07 08:42] LABS: BILIRUBIN,TOTAL 0.5 mg/dL (0.2-1); TOT PROT 5.4 g/dl (6.4-8.2)
[2024-05-07] MEDS: POTASSIUM CHLORIDE ORAL LIQUID 20 MEQ/15 ML PO ONE (13:06)
[2024-05-07] MEDS: PIPERACILLIN/TAZOB 3.375 GM 3.375 GM in DEXTROSE 5%-WATER - 50 ML IVPB SCH ×2 (14:25→17:24)
[2024-05-07] MEDS: LEVOTHYROXINE NA 88 MCG TABLET (FP) NGT SCH (14:29)
[2024-05-07] MEDS ORDERED: ACETAMINOPHEN 325 MG TABLET (FP) PO PRN (18:23)
[2024-05-07] MEDS ORDERED: ACETAMINOPHEN 650 MG/20.3 ML ORAL SOLUTION (CUPS) GT PRN (18:24)
[2024-05-07] MEDS: SODIUM CHLORIDE 1,000 ML IV SCH (19:36)
[2024-05-07] MEDS: VANCOMYCIN ORAL SOLUTION 125 MG/2.5 ML GT SCH (19:54)
[2024-05-07] MEDS: KETOROLAC TROMETHAMINE 15 MG/ML VIAL IVPUSH ONE (22:24)
[2024-05-08] MEDS: LEVOTHYROXINE NA 88 MCG TABLET (FP) GT SCH (06:37)
[2024-05-08 08:08] LABS: BASO % 0.7 % (0-2.0); EOS % 2.4 % (0-4.5); HEMATOCRIT 37.5 % (32.4-45.2); HEMOGLOBIN 12.3 GM/dL (10.7-15.3); LYMPH % 30.8 % (8-40); MCH 30.1 pg (25.7-33.7); MCHC 32.8 g/dl (32.0-36.0); MEAN CELL VOLUME 91.9 fl (80-96); MEAN PLT VOLUME 6.8 fl (7.5-11.1); MONO % 9.3 % (3.8-10.2); NEUT % 56.8 % (42.8-82.8); PLATELET COUNT 425 10^3/uL (134-434); RBC 4.08 M/mm3 (3.60-5.2); RDW 14.3 % (11.6-15.6); WHITE BLOOD COUNT 6.1 K/mm3 (4.0-10.0)
[2024-05-08 08:23] LABS: POTASSIUM 3.7 mmol/L (3.5-5.1)
[2024-05-08 08:30] LABS: BLOOD UREA NITROGEN 8.7 mg/dL (7-18); CALCIUM 8.6 mg/dL (8.5-10.1)
[2024-05-08 08:31] LABS: ALBUMIN 2.3 g/dl (3.4-5.0)
[2024-05-08 08:33] LABS: CREATININE 0.4 mg/dL (0.55-1.3); PHOSPHOROUS 2.8 mg/dL (2.5-4.9)
[2024-05-08 08:34] LABS: BILIRUBIN,TOTAL 0.3 mg/dL (0.2-1)
[2024-05-08] MEDS: AMOX TR/POTASSIUM CLAVULANATE 250 MG/5 ML BOTTLE GT SCH (09:55)
[2024-05-09] MEDS: levETIRAcetam 500 MG/5 ML ORAL SOLUTION (UNIT-DOSE CUPS) GT SCH (22:22)
[2024-05-09] MEDS: VALPROATE SODIUM 250 MG/5 ML UNIT DOSE CUP GT SCH (22:22)
[2024-05-10 06:39] VITALS: RESP 17
[2024-05-10 13:38] VITALS: BP 124/64; PULSE 82; TEMP 98.4
== END 2024-05-10 16:50 | disposition home or self-care (01) | DRG 689 ==
LOC: JER 08:47 → JERBED 12:35 → OBSVTOIN 13:23 → J4S 13:27
PROVIDERS: ADMIT Internal Medicine; ATTEND Internal Medicine
PROC: 0DH63UZ Insertion of Feeding Device into Stomach, Percutaneous Approach (ICD-10-PCS; principal; 2024-05-02)
DX: N39.0 Urinary tract infection, site not specified (principal); G93.41 Metabolic encephalopathy; A04.72 Enterocolitis due to Clostridium difficile, not specified as recurrent; T85.528A Displacement of other gastrointestinal prosthetic devices, implants and grafts, initial encounter; G40.909 Epilepsy, unspecified, not intractable, without status epilepticus; I10 Essential (primary) hypertension; E78.5 Hyperlipidemia, unspecified; E03.9 Hypothyroidism, unspecified; R55 Syncope and collapse; R13.19 Other dysphagia; E87.6 Hypokalemia; B95.2 Enterococcus as the cause of diseases classified elsewhere; Y83.8 Other surgical procedures as the cause of abnormal reaction of the patient, or of later complication, without mention of misadventure at the time of the procedure; K22.5 Diverticulum of esophagus, acquired
CPT/HCPCS: 36415; 49440; 70450-TC; 71045-TC-FY; 72125-TC; 72170-TC-FY; 74230-TC-FY; 80048; 80053; 80164; 80177; 81003; 82550; 82553; 82962; 83735; 84100; 84484; 85025; 85027; 85610; 85730; 87040; 87086; 87186; 87324; 87449; 92611-GN; 93005; 93010; 99285-25; G0378

== ENCOUNTER 2024-10-06 21:22 | Inpatient (IN) | payer OTHER ==
[2024-10-06 22:38] LABS: BASO % 0.5 % (0-2.0); EOS % 1.2 % (0-4.5); HEMATOCRIT 40.1 % (32.4-45.2); HEMOGLOBIN 13.3 GM/dL (10.7-15.3); LYMPH % 35.6 % (8-40); MCH 29.3 pg (25.7-33.7); MCHC 33.2 g/dl (32.0-36.0); MEAN CELL VOLUME 88.4 fl (80-96); MEAN PLT VOLUME 6.8 fl (7.5-11.1); MONO % 11.4 % (3.8-10.2); NEUT % 51.3 % (42.8-82.8); PLATELET COUNT 315 10^3/uL (134-434); RBC 4.54 M/mm3 (3.60-5.2); RDW 14.9 % (11.6-15.6); WHITE BLOOD COUNT 7.4 K/mm3 (4.0-10.0)
[2024-10-06 22:54] LABS: POTASSIUM 3.9 mmol/L (3.5-5.1)
[2024-10-06] MEDS ORDERED: levETIRAcetam 500 MG/5 ML INJECTION VIAL IVPB ONE (22:54)
[2024-10-06 22:56] LABS: ALBUMIN 2.7 g/dl (3.4-5.0); BLOOD UREA NITROGEN 10.4 mg/dL (7-18); CALCIUM 8.7 mg/dL (8.5-10.1); MAGNESIUM 1.8 mg/dL (1.8-2.4)
[2024-10-06 23:00] LABS: CREATININE 0.6 mg/dL (0.55-1.3)
[2024-10-06 23:01] LABS: BILIRUBIN,TOTAL 0.4 mg/dL (0.2-1)
[2024-10-06] MEDS: levETIRAcetam 500 MG/5 ML INJECTION VIAL IVPB ONE (23:01)
[2024-10-07 00:24] LABS: EPI CELLS >36 /uL (0-25.1); HYALINE CASTS 24 /uL (0-3.1); URINE APPEARANCE TURBID; URINE BACTERIA >9,000 /uL (0-1359); URINE BILIRUBIN NEGATIVE (NEGATIVE); URINE COLOR YELLOW; URINE GLUCOSE (UA) NEGATIVE (NEGATIVE); URINE KETONE NEGATIVE (NEGATIVE); URINE LEUK ESTERASE 3+ (NEGATIVE); URINE NITRITE POSITIVE (NEGATIVE); URINE PROTEIN 2+ (NEGATIVE); URINE UROBILINOGEN 0.2 mg/dL (0.2-1.0); URINE WBC 15933 /uL (0-25.8)
[2024-10-07] MEDS ORDERED: DEXTROSE 5%-WATER 100 ML IVPB ONE (00:47)
[2024-10-07] MEDS ORDERED: MEROPENEM 1 GM VIAL (RESTRICTED TO ID) IVPB ONE (00:47)
[2024-10-07] MEDS: MEROPENEM 1 GM in DEXTROSE 5%-WATER 100 ML IVPB SCH (01:10)
[2024-10-07] MEDS ORDERED: MEROPENEM 1 GM in DEXTROSE 5%-WATER 100 ML IVPB SCH (02:00)
[2024-10-07] MEDS: MEROPENEM-0.9% SODIUM CHLORIDE 1 GM/50 ML BAG IVPB SCH (03:33)
[2024-10-07 05:19] VITALS: BMI 22.1
[2024-10-07] MEDS ORDERED: VALPROATE SODIUM 500 MG/5 ML VIAL IVPB ONE (05:52)
[2024-10-07] MEDS: LORazepam 2 MG/ML SDV VIAL IVPUSH ONE (06:02)
[2024-10-07] MEDS: VANCOMYCIN ORAL SOLUTION 125 MG/2.5 ML GT SCH (06:35)
[2024-10-07] MEDS ORDERED: LEVOTHYROXINE NA 88 MCG TABLET (FP) PEG SCH (07:00)
[2024-10-07 08:20] LABS: BASO % 0.5 % (0-2.0); EOS % 0.4 % (0-4.5); HEMATOCRIT 41.5 % (32.4-45.2); HEMOGLOBIN 13.5 GM/dL (10.7-15.3); MCH 29.3 pg (25.7-33.7); MCHC 32.6 g/dl (32.0-36.0); MEAN CELL VOLUME 89.9 fl (80-96); MONO % 11.3 % (3.8-10.2); NEUT % 62.8 % (42.8-82.8); PLATELET COUNT 292 10^3/uL (134-434); RBC 4.62 M/mm3 (3.60-5.2); RDW 14.6 % (11.6-15.6); WHITE BLOOD COUNT 9.2 K/mm3 (4.0-10.0)
[2024-10-07 08:25] LABS: CALCIUM 9.1 mg/dL (8.5-10.1)
[2024-10-07 08:26] LABS: ALBUMIN 2.7 g/dl (3.4-5.0); BLOOD UREA NITROGEN 9.3 mg/dL (7-18)
[2024-10-07 08:29] LABS: CREATININE 0.6 mg/dL (0.55-1.3)
[2024-10-07 08:30] LABS: BILIRUBIN,TOTAL 0.5 mg/dL (0.2-1); TOT PROT 6.9 g/dl (6.4-8.2)
[2024-10-07] MEDS: LEVOTHYROXINE NA 88 MCG TABLET (FP) GT SCH (09:10)
[2024-10-07] MEDS: ENOXAPARIN NA (PORCINE) 40 MG/0.4 ML DISP.SYRIN SQ SCH (09:10)
[2024-10-07] MEDS: VALPROATE SODIUM INJECTION 500 MG in SODIUM CHLORIDE 50 ML IVPB ONE (09:10)
[2024-10-07] MEDS: LISINOPRIL 5 MG TABLET GT SCH (09:11)
[2024-10-07 09:45] LABS: URINE RBC 708 /uL (0-23.9); YEAST NONE SEEN (NEGATIVE)
[2024-10-07] MEDS ORDERED: CHOLECALCIFEROL (VIT D3) 400 UNIT (10 MCG) TABLET PO SCH (10:00)
[2024-10-07] MEDS ORDERED: VALPROATE SODIUM 500 MG/5 ML VIAL IVPB SCH (10:00)
[2024-10-07] MEDS: AMPICILLIN - 1 GM in SODIUM CHLORIDE 100 ML IVPB SCH (10:03)
[2024-10-07] MEDS: FAMOTIDINE 20 MG/2.5 ML ORAL LIQUID GT SCH (10:18)
[2024-10-07] MEDS: levETIRAcetam 500 MG/5 ML INJECTION VIAL IVPB SCH (10:54)
[2024-10-07] MEDS: DEXTROSE 5%-NORMAL SALINE 1,000 ML IV SCH (10:56)
[2024-10-07 11:45] LABS: EPI CELLS 5 /uL (0-25.1); HYALINE CASTS 1 /uL (0-3.1); URINE APPEARANCE CLOUDY; URINE BILIRUBIN NEGATIVE (NEGATIVE); URINE COLOR YELLOW; URINE GLUCOSE (UA) NEGATIVE (NEGATIVE); URINE KETONE NEGATIVE (NEGATIVE); URINE LEUK ESTERASE 3+ (NEGATIVE); URINE NITRITE POSITIVE (NEGATIVE); URINE PROTEIN 1+ (NEGATIVE); URINE RBC 291 /uL (0-23.9); URINE UROBILINOGEN 0.2 mg/dL (0.2-1.0); URINE WBC 2116 /uL (0-25.8)
[2024-10-07 11:55] LABS: URINE BACTERIA 335 /uL (0-1359)
[2024-10-07] MEDS: PIPERACILLIN/TAZOB 2.25 GM 2.25 GM in DEXTROSE 5%-WATER - 50 ML IVPB SCH (14:19)
[2024-10-07] MEDS: VANCOMYCIN ORAL SOLUTION 125 MG/2.5 ML PEG SCH (17:47)
[2024-10-07] MEDS: ATORVASTATIN CA 20 MG TABLET (FP) GT SCH (21:29)
[2024-10-07] MEDS: VALPROATE SODIUM INJECTION 500 MG in SODIUM CHLORIDE 100 ML IVPB SCH (22:00)
[2024-10-08 10:09] LABS: HEMATOCRIT 36.4 % (32.4-45.2); HEMOGLOBIN 12.2 GM/dL (10.7-15.3); MCH 29.8 pg (25.7-33.7); MCHC 33.5 g/dl (32.0-36.0); MEAN PLT VOLUME 7.3 fl (7.5-11.1); PLATELET COUNT 277 10^3/uL (134-434); WHITE BLOOD COUNT 5.4 K/mm3 (4.0-10.0)
[2024-10-08 10:52] LABS: POTASSIUM 3.6 mmol/L (3.5-5.1)
[2024-10-08 10:57] LABS: CALCIUM 8.5 mg/dL (8.5-10.1)
[2024-10-08 10:58] LABS: ALBUMIN 2.4 g/dl (3.4-5.0); BLOOD UREA NITROGEN 10.4 mg/dL (7-18); MAGNESIUM 1.9 mg/dL (1.8-2.4)
[2024-10-08 11:01] LABS: CREATININE 0.6 mg/dL (0.55-1.3); PHOSPHOROUS 3.3 mg/dL (2.5-4.9)
[2024-10-08 11:03] LABS: BILIRUBIN,TOTAL 0.5 mg/dL (0.2-1); TOT PROT 6.1 g/dl (6.4-8.2)
[2024-10-09] MEDS ORDERED: MEROPENEM-0.9% SODIUM CHLORIDE 1 GM/50 ML BAG IVPB SCH (02:00)
[2024-10-09 09:40] LABS: HEMATOCRIT 36.5 % (32.4-45.2); HEMOGLOBIN 11.9 GM/dL (10.7-15.3); MCH 29.7 pg (25.7-33.7); MCHC 32.6 g/dl (32.0-36.0); MEAN CELL VOLUME 90.9 fl (80-96); MEAN PLT VOLUME 7.1 fl (7.5-11.1); PLATELET COUNT 274 10^3/uL (134-434); RBC 4.02 M/mm3 (3.60-5.2); RDW 14.9 % (11.6-15.6); WHITE BLOOD COUNT 6.7 K/mm3 (4.0-10.0)
[2024-10-09 10:04] LABS: POTASSIUM 3.2 mmol/L (3.5-5.1)
[2024-10-09 10:11] LABS: ALBUMIN 2.6 g/dl (3.4-5.0); BLOOD UREA NITROGEN 7.7 mg/dL (7-18); CALCIUM 8.4 mg/dL (8.5-10.1); MAGNESIUM 1.7 mg/dL (1.8-2.4)
[2024-10-09 10:15] LABS: BILIRUBIN,TOTAL 0.5 mg/dL (0.2-1); CREATININE 0.5 mg/dL (0.55-1.3); PHOSPHOROUS 3.1 mg/dL (2.5-4.9)
[2024-10-09 10:17] LABS: TOT PROT 6.6 g/dl (6.4-8.2)
[2024-10-09] MEDS: VANCOMYCIN ORAL SOLUTION 125 MG/2.5 ML PO ONE (12:27)
[2024-10-09] MEDS: POTASSIUM CHLORIDE ORAL LIQUID 20 MEQ/15 ML PO ONE (12:30)
[2024-10-09] MEDS: MAGNESIUM OXIDE 400 MG TABLET (FP) GT ONE (16:45)
[2024-10-09] MEDS ORDERED: hydrALAZINE HCL 20 MG/ML VIAL IVPUSH PRN (18:13)
[2024-10-09] MEDS: DEXTROSE 5%-0.45% SALINE 1,000 ML IV SCH (21:11)
[2024-10-09] MEDS ORDERED: BANATROL PLUS POWDER PACKET PO SCH (22:00)
[2024-10-09] MEDS ORDERED: LACTOBACILLUS ACIDOPHILUS 1 TABLET PO SCH (22:00)
[2024-10-10 09:04] LABS: HEMATOCRIT 37.7 % (32.4-45.2); HEMOGLOBIN 12.2 GM/dL (10.7-15.3); MCH 29.3 pg (25.7-33.7); MCHC 32.3 g/dl (32.0-36.0); MEAN CELL VOLUME 90.6 fl (80-96); PLATELET COUNT 249 10^3/uL (134-434); RBC 4.16 M/mm3 (3.60-5.2); RDW 15.2 % (11.6-15.6); WHITE BLOOD COUNT 7.4 K/mm3 (4.0-10.0)
[2024-10-10 09:19] LABS: POTASSIUM 3.5 mmol/L (3.5-5.1)
[2024-10-10 09:41] LABS: CALCIUM 8.3 mg/dL (8.5-10.1)
[2024-10-10 09:42] LABS: ALBUMIN 2.4 g/dl (3.4-5.0); BLOOD UREA NITROGEN 6.5 mg/dL (7-18); MAGNESIUM 1.8 mg/dL (1.8-2.4)
[2024-10-10 09:45] LABS: CREATININE 0.6 mg/dL (0.55-1.3); PHOSPHOROUS 2.8 mg/dL (2.5-4.9)
[2024-10-10 09:46] LABS: BILIRUBIN,TOTAL 0.4 mg/dL (0.2-1); TOT PROT 6.3 g/dl (6.4-8.2)
[2024-10-10] MEDS ORDERED: PIPERACILLIN/TAZOB 2.25 GM 2.25 GM/50 ML BAG IVPB SCH (15:26)
[2024-10-10] MEDS: PIPERACILLIN/TAZOB 2.25 GM 2.25 GM/50 ML BAG IVPB SCH (15:48)
[2024-10-10] MEDS: PIPERACILLIN/TAZOB 2.25 GM 2.25 GM in DEXTROSE 5%-WATER - 50 ML IVPB SCH (15:56)
[2024-10-10] MEDS: VANCOMYCIN ORAL SOLUTION 125 MG/2.5 ML PEG SCH (20:23)
[2024-10-11 10:01] LABS: HEMATOCRIT 37.1 % (32.4-45.2); HEMOGLOBIN 12.5 GM/dL (10.7-15.3); MCH 29.9 pg (25.7-33.7); MCHC 33.7 g/dl (32.0-36.0); MEAN PLT VOLUME 7.1 fl (7.5-11.1); PLATELET COUNT 235 10^3/uL (134-434); RBC 4.18 M/mm3 (3.60-5.2); RDW 15.1 % (11.6-15.6); WHITE BLOOD COUNT 7.3 K/mm3 (4.0-10.0)
[2024-10-11 10:16] LABS: POTASSIUM 3.2 mmol/L (3.5-5.1)
[2024-10-11 10:22] LABS: CALCIUM 8.5 mg/dL (8.5-10.1)
[2024-10-11 10:23] LABS: ALBUMIN 2.3 g/dl (3.4-5.0); BLOOD UREA NITROGEN 3.6 mg/dL (7-18); MAGNESIUM 1.7 mg/dL (1.8-2.4)
[2024-10-11 10:26] LABS: CREATININE 0.5 mg/dL (0.55-1.3); PHOSPHOROUS 2.8 mg/dL (2.5-4.9)
[2024-10-11 10:27] LABS: BILIRUBIN,TOTAL 0.3 mg/dL (0.2-1); TOT PROT 6.2 g/dl (6.4-8.2)
[2024-10-11] MEDS: VANCOMYCIN ORAL SOLUTION 125 MG/2.5 ML PO SCH (11:40)
[2024-10-11 21:33] VITALS: RESP 18
[2024-10-12] MEDS: VANCOMYCIN HCL 125 MG CAPSULE (RESTRICTED TO ID ONLY) PO SCH (01:21)
[2024-10-12 09:23] LABS: HEMATOCRIT 35.8 % (32.4-45.2); HEMOGLOBIN 11.9 GM/dL (10.7-15.3); MCH 29.8 pg (25.7-33.7); MCHC 33.4 g/dl (32.0-36.0); MEAN CELL VOLUME 89.3 fl (80-96); MEAN PLT VOLUME 7.2 fl (7.5-11.1); PLATELET COUNT 225 10^3/uL (134-434); RBC 4.01 M/mm3 (3.60-5.2); RDW 15.2 % (11.6-15.6); WHITE BLOOD COUNT 7.5 K/mm3 (4.0-10.0)
[2024-10-12 09:31] LABS: POTASSIUM 3.4 mmol/L (3.5-5.1)
[2024-10-12 09:38] LABS: ALBUMIN 2.1 g/dl (3.4-5.0); BLOOD UREA NITROGEN 8.5 mg/dL (7-18); CALCIUM 8.3 mg/dL (8.5-10.1); MAGNESIUM 1.7 mg/dL (1.8-2.4)
[2024-10-12 09:40] LABS: BILIRUBIN,TOTAL 0.4 mg/dL (0.2-1); TOT PROT 5.8 g/dl (6.4-8.2)
[2024-10-12 09:41] LABS: CREATININE 0.5 mg/dL (0.55-1.3)
[2024-10-12 09:43] LABS: PHOSPHOROUS 3.2 mg/dL (2.5-4.9)
[2024-10-12] MEDS: levETIRAcetam 500 MG/5 ML ORAL SOLUTION (UNIT-DOSE CUPS) PO SCH (09:46)
[2024-10-12] MEDS: CEFUROXIME AXETIL 250 MG TABLET PO SCH (10:04)
[2024-10-12] MEDS: VALPROATE SODIUM 250 MG/5 ML UNIT DOSE CUP PO SCH (10:05)
[2024-10-12 14:12] LABS: EPI CELLS 27 /uL (0-25.1); HYALINE CASTS 6 /uL (0-3.1); PH,URINE 7.5 (5.0-8.0); URINE APPEARANCE CLOUDY; URINE BACTERIA 106 /uL (0-1359); URINE BILIRUBIN NEGATIVE (NEGATIVE); URINE COLOR RED; URINE GLUCOSE (UA) NEGATIVE (NEGATIVE); URINE KETONE NEGATIVE (NEGATIVE); URINE LEUK ESTERASE 3+ (NEGATIVE); URINE NITRITE NEGATIVE (NEGATIVE); URINE PROTEIN 2+ (NEGATIVE); URINE UROBILINOGEN 0.2 mg/dL (0.2-1.0); URINE WBC 2780 /uL (0-25.8)
[2024-10-12 14:37] LABS: URINE CRYSTALS NONE SEEN /hpf; URINE RBC 4211.6 /uL (0-23.9); YEAST NONE SEEN (NEGATIVE)
[2024-10-13 09:34] LABS: HEMATOCRIT 37.3 % (32.4-45.2); HEMOGLOBIN 12.3 GM/dL (10.7-15.3); MCH 29.7 pg (25.7-33.7); MEAN CELL VOLUME 89.9 fl (80-96); MEAN PLT VOLUME 7.4 fl (7.5-11.1); PLATELET COUNT 207 10^3/uL (134-434); RBC 4.15 M/mm3 (3.60-5.2); RDW 15.3 % (11.6-15.6); WHITE BLOOD COUNT 6.7 K/mm3 (4.0-10.0)
[2024-10-13 10:12] LABS: BILIRUBIN,TOTAL 0.2 mg/dL (0.2-1); CALCIUM 8.5 mg/dL (8.5-10.1); CREATININE 0.5 mg/dL (0.55-1.3); MAGNESIUM 1.8 mg/dL (1.8-2.4); PHOSPHOROUS 3.1 mg/dL (2.5-4.9); POTASSIUM 3.9 mmol/L (3.5-5.1); TOT PROT 5.8 g/dl (6.4-8.2)
[2024-10-14 09:13] VITALS: BP 122/51; PULSE 74; TEMP 98.4
[2024-10-14] MEDS ORDERED: ACETAMINOPHEN 1000 MG/100 ML BAG IVPB PRN (10:04)
[2024-10-14] MEDS: ACETAMINOPHEN 325 MG TABLET (FP) PO PRN (10:45)
== END 2024-10-14 12:20 | disposition home or self-care (01) | DRG 100 ==
LOC: JER 21:22 → JERBED 10-07 00:36 → J6S 10-07 04:48
PROVIDERS: ADMIT Internal Medicine; ATTEND Internal Medicine
PROC: 0D20XUZ Change Feeding Device in Upper Intestinal Tract, External Approach (ICD-10-PCS; principal; 2024-10-09)
DX: G40.909 Epilepsy, unspecified, not intractable, without status epilepticus (principal); G93.41 Metabolic encephalopathy; N39.0 Urinary tract infection, site not specified; Z43.1 Encounter for attention to gastrostomy; N13.4 Hydroureter; I10 Essential (primary) hypertension; E03.9 Hypothyroidism, unspecified; R13.10 Dysphagia, unspecified; E78.5 Hyperlipidemia, unspecified; R31.0 Gross hematuria
CPT/HCPCS: 0241U-QW; 36415; 70450-TC; 71045-TC-FY; 74018-TC-FY; 74178-TC; 76856-TC; 80053; 80164; 80177; 81003; 82550; 82570; 82962; 83605; 83735; 83935; 84100; 84300; 84439; 84443; 84484; 85025; 85027; 87086; 87186; 99285-25